=== PATIENT | female | born 1935 | race Caucasian/White ===

== ENCOUNTER → 2018-09-16 15:12 | Outpatient (CLI) | payer MEDICARE, SELFPAY ==
[2018-02-04 13:41] VITALS: BMI 34.7
--- NOTE | 2018-09-16 15:19 | RAD_ITS ---
STUDY: X-RAY CHEST REASON FOR EXAM: Female, 83 years old. Dyspnea, edema or COPD TECHNIQUE: PA and lateral views of the chest. COMPARISON: None. FINDINGS: There is a blunted appearance of the right costophrenic angle. Age-indeterminate eventration of the right hemidiaphragm. There is no demonstrated pleural abnormality. There is mild cardiac enlargement. Normal mediastinum and aaron. Normal visualized pulmonary arteries. There is atherosclerotic tortuosity of the aortic arch and descending thoracic aorta. There are diffuse degenerative changes of the visualized thoracic spine. There is a old fracture right rib 6. There is no demonstrated abnormality of the visualized soft tissue structures of the upper abdomen. RAD/Chest PA and Lateral IMPRESSION: Age-indeterminate blunted appearance of the right costophrenic angle may represent scarring atelectasis and/or small effusion. Otherwise no evidence of acute focal infiltrate. Old right-sided rib fracture. Borderline cardiomegaly. Electronically Signed: Elisha Soriano MD at 15:32 EDT Tel , Service support ,
[2018-09-16 18:08] LABS: BNP,B-Type NATRIURETIC PEPTIDE 205.2 pg/mL (0-100)
== END ==
PROVIDERS: Family Provider Internal Medicine; PCP Internal Medicine; Referring Provider Internal Medicine Pulmonary Disease; Visit Provider Internal Medicine Pulmonary Disease
DX: J44.9 Chronic obstructive pulmonary disease, unspecified (principal); R06.00 Dyspnea, unspecified; R60.9 Edema, unspecified
CPT/HCPCS: 36415; 71046; 83880

== ENCOUNTER 2019-02-22 07:28 | Day surgery (SDC) | payer MEDICARE, SELFPAY ==
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
[2019-02-21 10:33] VITALS: BMI 36.9
[2019-02-22 13:41] LABS: Blood Gas Specimen Type VEN; VBG BASE EXCESS 8 mmol/L (-1.0-3.5); VBG Bicarbonate 32 mmol/L (22-26); VBG Oxygen Content 34 mmol/L (23-33); VBG PO2 37 mmHg (25-40); VBG SO2 72 % (50-70); VBG pH 7.43 (7.32-7.42)
[2019-02-22 13:41] LABS: Blood Gas Specimen Type VEN; VBG BASE EXCESS 7 mmol/L (-1.0-3.5); VBG Bicarbonate 31 mmol/L (22-26); VBG Oxygen Content 33 mmol/L (23-33); VBG PO2 38 mmHg (25-40); VBG SO2 72 % (50-70); VBG pCO2 48.1 mmHg (41-51); VBG pH 7.42 (7.32-7.42)
[2019-02-22 13:41] LABS: Blood Gas Specimen Type VEN; VBG BASE EXCESS 8 mmol/L (-1.0-3.5); VBG Bicarbonate 33 mmol/L (22-26); VBG Oxygen Content 34 mmol/L (23-33); VBG PO2 29 mmHg (25-40); VBG SO2 54 % (50-70); VBG pCO2 51.7 mmHg (41-51); VBG pH 7.41 (7.32-7.42)
[2019-02-22 13:41] LABS: Blood Gas Specimen Type VEN; VBG BASE EXCESS 7 mmol/L (-1.0-3.5); VBG Bicarbonate 32 mmol/L (22-26); VBG Oxygen Content 33 mmol/L (23-33); VBG PO2 31 mmHg (25-40); VBG SO2 59 % (50-70); VBG pCO2 51.1 mmHg (41-51)
[2019-02-22 13:41] LABS: Base Excess 5 mmol/L (-2 to +2); Bicarbonate 28.8 mmol/L (22-26); Blood Gas Specimen Type ART; PO2 75 mmHG (75-100); SO2 96 % (95-99); Total Carbon Dioxide 30 mmol/L; pH 7.46 (7.35-7.45)
[2019-02-22 13:41] LABS: Blood Gas Specimen Type VEN; VBG BASE EXCESS 7 mmol/L (-1.0-3.5); VBG Bicarbonate 31 mmol/L (22-26); VBG Oxygen Content 32 mmol/L (23-33); VBG PO2 36 mmHg (25-40); VBG SO2 70 % (50-70); VBG pCO2 47.6 mmHg (41-51); VBG pH 7.42 (7.32-7.42)
--- NOTE | 2019-03-03 09:58 | CL.D_ITS ---
Patient Name: DARIUS GUERRERO Study Date: 02/22/2019 Performing: Masoud Johnson MD Ht: 60 inches 152 cm : 1935 Wt: 189.8 lbs 86 kg Age: 83 Gender: female BSA: 1.82 PROCEDURE(S) PERFORMED [id number]/LHC/COR/LV CLINICAL PROFILE AND INDICATIONS Indications: Suspected CAD, Valvular Disease Heart Failure: None Stress/Imaging Stress/Image Study Performed: No Angina Classification Anginal Classification w/in 2 Weeks: CCS III CAD Presentations: Other: Chest pain; shortness of breath CONCLUSIONS Right heart pressures - mildly elevated The patient has pulmonary hypertension which is mild. Intracardiac shunting: Left to Right (calculated Qp/Qs of 1.4) Elevated Left Ventricular End Diastolic Pressure Normal LV size, wall motion,and systolic function LVEF: by LV gram 55 % [place] Multivessel CAD Severe calcification of the LAD and RCA Aortic Valve Stenosis- Mild RECOMMENDATIONS Risk factor modification Medical therapy DESCRIPTION OF PROCEDURE The patient arrived to the procedure lab. The risks and benefits of the procedure as well as a full d escription of our services here and current unavailability of surgical backup were fully explained to the patient and/or their significant other prior to the catheterization. The Timeout was completed, verifying the correct patient and procedure. The patient's procedural site was prepped and draped in the usual fashion. Local anesthetic was given subcutaneously to right groin region with Lidocaine 2%. Local anesthetic was given subcutaneously to right brachial region with Lidocaine 2%. Using a modifi ed Seldinger technique, arterial access was obtained via the right brachial artery, a 6Fr sheath was inserted. Venous access was obtained via the right femoral vein, a 7Fr sheath was inserted. A 7Fr the rmal dilution catheter was inserted and right heart pressures were recorded, it was then advanced to PA position for cardiac outputs. Thermal dilution cardiac outputs were then recorded. O2 saturations were then obtained. Left Ventriculography was performed in [place] projection using a 5 Fr. P igtail catheter. LV to AO pullback pressures were then recorded. Simultaneous pressures were then rec orded. The Thermal dilution catheter was then removed. Left Coronary Artery selective angiography was performed in multiple views using a 5 Fr. 4.0 [place] catheter. Right Coronary Artery selective angiog jak was then performed in multiple views using a 5 Fr. 4.0 [place] catheter. Left Coronary Artery ajay ective angiography was performed in multiple views using a 5 Fr. 4.0 [place] catheter. A 7Fr thermal di lution catheter was inserted and right heart pressures were recorded, it was then advanced to PA posi tion for cardiac outputs. O2 saturations were then obtained. The Thermal dilution catheter was then r emoved.The arterial sheath was pulled and manual compression applied until hemostasis is achieved.. T he venous sheath was then pulled and manual compression applied until hemostasis achieved CORONARY ANGIOGRAPHY DOMINANCE: Right Dominant LEFT HEART ASSESSMENT Left Ventricular Ejection Fraction: by LV Gram 55 % Normal LV wall motion Elevated Left Ventricular End Diastolic Pressure LVEDP: 18 mmHg RIGHT HEART ASSESSMENT Thermal CO: 5.2 Thermal CI: 2.86 Thor CO: 6.29 Thor CI: 3.46 PW: 18/16 14 PA: 31/16 21 RV: 34/6 11 RA: 8/5 2 PVR: 108 SVR: 2014 Aortic Valve Area: 2.07 Aortic Valve Index: 1.14 Aortic Valve Mean Gradient: 16.8 Mitral Valve Area: >3.50 Mitral Valve index: 1.92 Mitral Valve Mean Gradient: 5.4 Right Heart pressures - elevated Pulmonary Hypertension Mild Intracardiac shunting: Left to Right (calculated Qp/Qs of 1.4) LEFT MAIN: Angiographically normal LEFT ANTERIOR DESCENDING ARTERY: Severe calcification PROX LAD: eccentric; hazy 50 % Stenosis MID LAD: eccentric; hazy 50 - 75 % Stenosis CIRCUMFLEX ARTERY: PROX CIRC: 25 % Stenosis RAMUS: Mild luminal irregularities RIGHT CORONARY ARTERY: Severe calcification diffuse; eccentric 25 % Stenosis DISTAL RCA: 50 % Stenosis VALVE FINDINGS: Aortic Valve Stenosis - mild AORTIC ROOT: Angiographically normal COMPLICATIONS No Complications PROCEDURE MEDICATIONS Versed 1 mg IV Oxygen: 0 L/min via nasal cannula Heparin diluted in 23cc Heparinized saline. Patient given 10cc IA of this solution. 02/22/2019 10:42: 36 Nitro glycerin 25mg / 250ml D5W @ 5 mcg/min IV started 02/22/2019 11:37:14 Nitro glycerin 25mg / 250ml D5W @ 10 mcg/min (increased rate) 02/22/2019 11:42:26 Nitro drip titrated down to 5 mcg/min ^FreeText^ 02/22/2019 13:22:23 Nitro gtt discontinued ^FreeText^ 02/22/2019 15:56:10 IV Fluids: .9 NaCl IV started @ 150 ml/hr 02/22/2019 08:09:49 SUMMARY OF HEMODYNAMIC DATA Time AIR REST ECG 07:59:42 RA 8/5 (2) SV 10:46:09 RV 34/6, 11 10:46:28 PA 31/16 (21) PA 10:47:22 PW 18/16 (14) PV 10:47:37 LV 204/12, 21 10:55:44 PW 17/16 (14) 10:55:44 LV 199/9, 18 10:55:50 PW 15/13 (10) 10:55:50 LV 221/9, 26 10:57:19 PW 21/20 (16) 10:57:19 LVp 217/31, 74 10:57:39 PW 38/30 (24) 10:57:39 AOp 216/70 (122) 10:57:44 PW 34/27 (27) 10:57:44 LVp 216/35, 71 10:58:20 AOp 220/79 (132) 10:58:25 PA 40/19 (27) 10:59:12 RV 44/6, 13 10:59:24 RA 13/11 (10) 10:59:35 AO 214/81 (133) SA 10:59:53 AO 169/68 (110) 11:19:50 PA 43/21 (29) 11:23:38 Valve Area (c P-P/ms Time AIR REST Mitral 3.50 1.5 mn/288 ms 10:55:50 Mitral 3.50 5.4 mn/282 ms 10:57:39 Aortic 2.07 16.8 mn/322 ms 10:58:20 Type SV CO (l/m) CI (l/m/ HR Time AIR REST Thermal 113.00 5.20 2.86 46 07:59:42 Thor 136.70 6.29 3.46 46 07:59:42 Label % O2 Pres/Loc Time AIR REST IVC 72 SV 10:53:17 SVC 59 10:53:20 AO 96 PV 11:04:31 PA 70 PA 11:29:57 Signed By Masoud Johnson MD On 02/22/2019 7:02:44 PM Masoud Johnson MD
== END 2019-02-22 15:56 | disposition home or self-care (01) ==
LOC: CLSP 07:30
PROVIDERS: Family Provider Internal Medicine; PCP Internal Medicine; Referring Provider Internal Medicine Cardiovascular Disease; Visit Provider Internal Medicine Cardiovascular Disease
DX: I25.10 Atherosclerotic heart disease of native coronary artery without angina pectoris (principal); I13.0 Hypertensive heart and chronic kidney disease with heart failure and stage 1 through stage 4 chronic kidney disease, or unspecified chronic kidney disease; I50.22 Chronic systolic (congestive) heart failure; N18.9 Chronic kidney disease, unspecified; I27.20 Pulmonary hypertension, unspecified; J44.9 Chronic obstructive pulmonary disease, unspecified; I35.2 Nonrheumatic aortic (valve) stenosis with insufficiency; E78.5 Hyperlipidemia, unspecified; R00.1 Bradycardia, unspecified; Z79.82 Long term (current) use of aspirin; Z79.899 Other long term (current) drug therapy; Z88.0 Allergy status to penicillin; Z88.5 Allergy status to narcotic agent; Z85.118 Personal history of other malignant neoplasm of bronchus and lung; Z87.891 Personal history of nicotine dependence; Z90.2 Acquired absence of lung [part of]
CPT/HCPCS: 82803; 93460; 99152; 99153; J7040; Q9967; C1751; C1769; C1894

== ENCOUNTER → 2020-01-16 10:45 | Outpatient (CLI) | payer MEDICARE, SELFPAY ==
[2019-03-22 13:08] VITALS: BMI 35.9
--- NOTE | 2020-01-16 11:05 | RAD_ITS ---
STUDY: X-RAY - LEFT KNEE REASON FOR EXAM: Female, 84 years old. PAIN S/P FALL IN JULY TECHNIQUE: AP and lateral view(s) of the knee. COMPARISON: None. FINDINGS: Normal visualized distal femur. Normal visualized proximal tibia and fibula. Normal proximal tibiofibular articulation. Normal medial femorotibial compartment. Normal lateral femorotibial compartment. There is mild degenerative arthrosis of the patellofemoral articulation. There are atherosclerotic calcifications. RAD/Knee 1 or 2 Views IMPRESSION: Degenerative arthrosis. Electronically Signed: Renzo Lofton, at 12:19 EDT , Service support ,
== END ==
PROVIDERS: PCP Internal Medicine; Referring Provider Anesthesiology Pain Medicine; Visit Provider Anesthesiology Pain Medicine
DX: M25.562 Pain in left knee (principal); W19.XXXA Unspecified fall, initial encounter
CPT/HCPCS: 73560

== ENCOUNTER → 2020-02-07 14:01 | Outpatient (CLI) | payer MEDICARE, SELFPAY ==
[2019-03-22 13:08] VITALS: BMI 35.9
--- NOTE | 2020-02-07 14:04 | RAD_ITS ---
STUDY: X-RAY - PELVIS AND LEFT HIP REASON FOR EXAM: Female, 84 years old. Fall x 6 months ago TECHNIQUE: 3 views of the pelvis and hip. COMPARISON: None. FINDINGS: There is a non-specific bowel gas pattern. Normal visualized soft tissue structures. Vascular calcifications. Normal bilateral iliac wings, sacroiliac joints and visualized sacrum. Normal bilateral superior and inferior pubic rami. Normal pubic symphysis. Normal bilateral ischial tuberosities. Normal visualized femoral head. Normal acetabulum. Normal hip joint. RAD/Hip uni 4+ views with Pelvis IMPRESSION: No acute bony injury of the pelvis and hip. Electronically Signed: Nikolai Ye DO at 18:12 EDT Tel [phone], Service support ,
--- NOTE | 2020-02-07 14:15 | RAD_ITS ---
STUDY: X-RAY - LEFT KNEE REASON FOR EXAM: Female, 84 years old. Fall x 6 months ago, left knee pain TECHNIQUE: 4 view(s) of the knee. COMPARISON: None. FINDINGS: Normal visualized distal femur. Normal visualized proximal tibia and fibula. Normal proximal tibiofibular articulation. Normal medial femorotibial compartment. Normal lateral femorotibial compartment. Normal patellofemoral articulation. Patellar spurring at the superior edge. The soft tissue structures are unremarkable. Vascular calcifications. RAD/Knee 4 or More Views IMPRESSION: Mild degenerative changes of the knee. Electronically Signed: Nikolai Ye DO at 19:19 EDT Tel [phone], Service support ,
== END ==
PROVIDERS: PCP Internal Medicine; Referring Provider Anesthesiology Pain Medicine; Visit Provider Anesthesiology Pain Medicine
DX: M25.562 Pain in left knee (principal)
CPT/HCPCS: 73503; 73564

== ENCOUNTER → 2020-11-08 12:28 | Outpatient (CLI) | payer MEDICARE, SELFPAY ==
[2020-11-02 15:15] VITALS: BMI 31.4
== END ==
PROVIDERS: PCP Internal Medicine; Referring Provider Physician Assistant Medical; Visit Provider Physician Assistant Medical
DX: R00.1 Bradycardia, unspecified (principal); R06.00 Dyspnea, unspecified; R06.02 Shortness of breath
CPT/HCPCS: 93225; 93226

== ENCOUNTER → 2021-09-30 | Outpatient (CLI) | payer MEDICARE, SELFPAY ==
--- NOTE | 2021-09-30 12:48 | ECHOD_ITS ---
Reason For Study: DYSPNEA/SOB Procedure This was a 2D Doppler, Color Flow transthoracic echocardiogram. The study was technically difficult. Exam performed in department. Left Ventricle Normal LV size. Left ventricular systolic function is normal. The estimated ejection fraction is 60 %. No evidence for diastolic dysfunction. No regional wall motion abnormalities noted. Right Ventricle Normal RV size. Normal systolic function. Atria Normal left atrium. Normal right atrium. No doppler evidence for ASD. Mitral Valve There is moderate mitral annular calcification. Extension the mitral annular calcification on the base of the posterior mitral valve leaflet. Trivial mitral valve insufficiency. Tricuspid Valve Normal tricuspid valve. Trivial tricuspid valve insufficiency. Unable to estimate RV systolic pressure/pulmonary artery pressure due to technically difficult study. Aortic Valve The aortic valve is not well visualized, however, based upon the 2D echocardiographic images obtained there appears to be thickening, calcification, and partial restriction. Mild aortic stenosis. Mild (1+) aortic valve insufficiency. Pulmonic Valve The pulmonic valve is not well visualized. Great Vessels The aortic root is not well visualized. Pericardium/Pleural No pericardial effusion. MMode/2D Measurements & Calculations LVIDd: 2.6 cm IVSd: 1.2 cm LVOT diam: 1.8 cm LVIDs: 1.2 cm LVPWd: 0.96 cm LVOT area: 2.5 cm2 RVDd: 3.3 cm FS: 53.7 % LAV(MOD-bp): 49.6 ml LVAd ap4: 22.5 cm2 LVAd ap2: 27.6 cm2 LAV(MOD-bp) Indexed: 28.4 ml/m2 LVLd ap4: 8.2 cm LVLd ap2: 8.3 cm LAV(MOD-sp2): 62.1 ml EDV(MOD-sp4): 55.8 ml EDV(MOD-sp2): 78.5 ml LAV(MOD-sp4): 37.3 ml EDV(sp4-el): 52.1 ml EDV(sp2-el): 78.2 ml LVAs ap4: 13.3 cm2 LVAs ap2: 19.3 cm2 LVLs ap4: 6.7 cm LVLs ap2: 7.2 cm ESV(MOD-sp4): 23.6 ml ESV(MOD-sp2): 46.9 ml ESV(sp4-el): 22.4 ml ESV(sp2-el): 43.8 ml EF(MOD-sp4): 57.7 % EF(MOD-sp2): 40.3 % EF(sp4-el): 57.0 % SV(MOD-sp4): 32.2 ml SV(MOD-sp2): 31.6 ml SV(sp4-el): 29.7 ml LA A4 area: 16.3 cm2 RA A4 area: 14.1 cm2 Doppler Measurements & Calculations MV E max abigail: 60.5 cm/sec Ao V2 max: 190.1 cm/sec AI max abigail: 448.0 cm/sec MV A max abigail: 127.4 cm/sec Ao max P.5 mmHg AI max P.3 mmHg MV E/A: 0.47 Ao V2 mean: 124.4 cm/sec AI dec slope: 176.6 cm/sec2 Ao mean P.2 mmHg AI P1/2t: 743.3 msec Ao V2 VTI: 38.6 cm MAX(I,D): 1.3 cm2 MAX(V,D): 1.1 cm2 LV V1 max: 83.6 cm/sec SV(LVOT): 50.7 ml LV V1 max P.8 mmHg LV V1 mean P.3 mmHg LV V1 mean: 52.0 cm/sec LV V1 VTI: 20.4 cm ECHO/Echo Complete Interpretation Summary The study was technically difficult. Left ventricular systolic function is normal. The estimated ejection fraction is 60 %. There is moderate mitral annular calcification. Extension the mitral annular calcification on the base of the posterior mitral valve leaflet. Trivial mitral valve insufficiency. Trivial tricuspid valve insufficiency. The aortic valve is not well visualized, however, based upon the 2D echocardiog raphic images obtained there appears to be thickening, calcification, and partial restriction . Mild aortic stenosis. Mild (1+) aortic valve insufficiency. Unable to estimate RV systolic pressure/pulmonary artery pressure due to techni helio difficult study. No evidence for diastolic dysfunction. Ordering Physician: Masoud Johnson Referring Physician: Masoud Johnson Performed By: Aretha Palacio RCS
== END | disposition home or self-care (01) ==
LOC: CVS 12:46
PROVIDERS: PCP Internal Medicine; Referring Provider Internal Medicine Cardiovascular Disease; Visit Provider Internal Medicine Cardiovascular Disease
DX: I25.10 Atherosclerotic heart disease of native coronary artery without angina pectoris (principal)
CPT/HCPCS: 93306

== ENCOUNTER → 2021-11-13 | Outpatient (CLI) | payer MEDICARE, SELFPAY ==
--- NOTE | 2021-11-13 14:42 | PFTCOMP_ITS ---
COMPLETE PULMONARY FUNCTION TEST INTERPRETATION Brief HPI: Patient is an 86-year-old female, currently under the care of Dr. Joseph, who presents to [facility] for complete pulmonary function tests secondary to diagnosis of COPD. Respiratory therapist reports good effort and reproducible results. Interpretation: Forced expiration spirometry shows a mild large airways obstructive ventilatory defect with an FEV1 of 84% predicted. There is a significant bronchodilator response in FVC and FEV1 by strict ATS criteria. Spirograms are of good quality and plateau slowly, indicating slowly emptying areas of the lungs. The respiratory flow volume loop shows decreased expiratory flow rates at all lung volumes consistent with airway obstruction. Lung volumes by body plethysmography show a normal total lung capacity at 3.43 L, 89% predicted. All other lung volumes are within normal limits. Diffusion capacity by carbon monoxide is decreased at 31% predicted. The airway resistance is elevated. No previous pulmonary function tests were available for review. Impression: Partially reversible mild large airways obstructive ventilatory defect with a disproportionate reduction in diffusing capacity, in a pattern consistent with COPD/asthma overlap syndrome
== END | disposition home or self-care (01) ==
LOC: PSN 09:45
PROVIDERS: PCP Internal Medicine; Referring Provider Internal Medicine Critical Care Medicine; Visit Provider Internal Medicine Critical Care Medicine
DX: J44.9 Chronic obstructive pulmonary disease, unspecified (principal)
CPT/HCPCS: 94060; 94726; 94729

== ENCOUNTER → 2021-11-14 | Outpatient (CLI) | payer MEDICARE, SELFPAY ==
[2021-11-14 13:00] VITALS: PULSE 56; PULSE 67; PULSE 73; PULSE 76; PULSE 78; PULSE 80; PULSE 93; O2SAT 92; O2SAT 94; O2SAT 95; O2SAT 96
--- NOTE | 2021-11-14 15:29 | PCM.PSN.6M ---
PSN 6 Minute Walk Test 6 Minute Walk Test 6 Minute Walk Test: 6 Minute Walk Test PSN:6-Minute Walk Test Start: 11/14/21 13:43 Freq: Status: Active Protocol: [id number].[id number] Document 11/14/21 13:00 [facility] (Rec: 11/14/21 13:47 [facility] [id number]) 6 Minute Walk Test Date Performed 11/14/21 Time Performed 13:00 Height 5 ft Weight: 77.564 kg Weight in Pounds 171.[address]: Dr Joseph Assistive device used: Cane Pre-test Oxygen Delivery Method Room Air Pulse Ox (%) 96 Pulse Rate (60-100 beats/min) 56 L Dyspnea Kary Scale (0-10) 2 Exertion Kary Scale (6-20) 6 1st minute Oxygen Delivery Method Room Air Pulse Ox (%) 95 Pulse Rate (60-100 beats/min) 73 2nd minute Oxygen Delivery Method Room Air Pulse Ox (%) 94 Pulse Rate (60-100 beats/min) 80 3rd minute Oxygen Delivery Method Room Air Pulse Ox (%) 94 Pulse Rate (60-100 beats/min) 76 4th minute Oxygen Delivery Method Room Air Pulse Rate (60-100 beats/min) 93 Dyspnea Kary Scale (0-10) 76 5th minute Oxygen Delivery Method Room Air Pulse Ox (%) 92 Pulse Rate (60-100 beats/min) 78 6th minute Oxygen Delivery Method Nasal Cannula Pulse Ox (%) 95 Pulse Rate (60-100 beats/min) 78 Dyspnea Kary Scale (0-10) 2 Exertion Kary Scale (6-20) 12 Post-test Oxygen Delivery Method Room Air Pulse Ox (%) 96 Pulse Rate (60-100 beats/min) 67 Full Laps Walked 4 Partial Lap, Number of Tiles Walked 23 Total Distance Walked (ft) 259 Interpretation Interpretation: The patient was able to ambulate only 259 feet over the course of 6 minutes on room air with the assistance of a cane, but no breaks. The patient did experience significant desaturation from a baseline of 96% to as low as 92%. No tachycardia was noted during testing. These findings are consistent with a musculoskeletal limitation exercise tolerance. Recommendations Recommendations: No supplemental oxygen is indicated at this time.
== END | disposition home or self-care (01) ==
LOC: PSN 13:19
PROVIDERS: PCP Internal Medicine; Visit Provider Internal Medicine Critical Care Medicine
DX: J44.9 Chronic obstructive pulmonary disease, unspecified (principal)
CPT/HCPCS: 94618

== ENCOUNTER 2022-11-17 04:24 | Emergency (ER) | payer MEDICARE, SELFPAY ==
[2022-11-17 04:25] VITALS: BP 185/95; PULSE 65; RESP 16; TEMP 36.4; O2SAT 94; BMI 34.5
--- NOTE | 2022-11-17 04:56 | EKG12_ITS ---
Test Reason : FALL Blood Pressure : / mmHG Vent. Rate : 066 BPM Atrial Rate : 066 BPM P-R Int : 192 ms QRS Dur : 150 ms QT Int : 490 ms P-R-T Axes : 050 -75 065 degrees QTc Int : 513 ms Poor data quality, interpretation may be adversely affected Sinus rhythm with occasional Premature ventricular complexes Right bundle branch block Abnormal ECG Confirmed by JOHNNA ALLEN, SOBIA ([id number]), pictures editor RAIZA ANNE ([id number]) on 11/19/2022 11:35:59 AM Referred By: JUANY Confirmed By:SOBIA OROPEZA MD
--- NOTE | 2022-11-17 04:56 | RAD_ITS ---
EXAM: XR CHEST, 1 VIEW CLINICAL INDICATION: syncope TECHNIQUE: Frontal view of the chest. COMPARISON: September 16, 2018. FINDINGS: LUNGS AND PLEURAL SPACES: No convincing pulmonary contusion. Mild blunting of the right lateral costophrenic angle appears similar, suspected scarring. Surgical clips noted in the right infrahilar region as on prior exam. No pneumothorax. No effusion. HEART: Similar degree of the mild to moderate cardiomegaly. The patient is rotated to the right. Similar degree of tortuosity of the aorta and mild mediastinal fullness considering patient positioning. MEDIASTINUM: See above. BONES/JOINTS: No destructive rib fracture identified. Partially included shoulders are intact. SOFT TISSUES: Unremarkable. RAD/Chest 1 View (Portable) IMPRESSION: No acute intrathoracic abnormality considering limitations due to technical factors and significant patient rotation. Postoperative changes of the right infrahilar region and stable mild presumed scarring at the right lateral lung base. Electronically Signed: Marichuy Joiner MD at 6:11 EDT ,
--- NOTE | 2022-11-17 04:56 | CT_ITS ---
EXAM: CT CERVICAL SPINE WITHOUT INTRAVENOUS CONTRAST CLINICAL INDICATION: injury TECHNIQUE: Helically acquired images were obtained of the cervical spine without intravenous contrast. 2D reformatted images were reviewed. This CT exam was performed using one or more of the following dose reduction techniques: automated exposure control, adjustment of the mA and/or kV according to patient size, and/or use of iterative reconstruction technique. RADIATION DOSE: CTDIvol = 15.5 mGy, DLP = 532.34 mGy-cm COMPARISON: No relevant prior studies available. FINDINGS: VERTEBRAE: Demineralization of skeletal structures. Mild anterolisthesis of C3 with respect to C4 and this is slightly less extent at other levels. Most likely chronic, there are facet joint hypertrophic changes on the left at C3-4 and now facet joint widening. No fracture. No discrete lytic or blastic abnormality. Normal craniocervical junction and cervicothoracic junction. DISCS/SPINAL CANAL/NEURAL FORAMINA: Marked disc space narrowing at C4 through C7 and moderate narrowing at C3-4. No evidence of a high-grade cervical spine stenosis. Multilevel at least mild neural foraminal stenosis. SOFT TISSUES: Unremarkable. No prevertebral soft tissue swelling. LYMPH NODES: Unremarkable. No cervical adenopathy. LUNG APICES: Advanced chronic change in the lung apices, emphysematous changes and some increased interstitial markings. Is moderate right and mild left cervical carotid calcifications. CT/Spine Cervical without Contras IMPRESSION: 1. Advanced degenerative changes. No acute cervical spine abnormality. 2. Demineralization. Motion artifacts and mild decreased fine detail. 3. COPD. 4. Right greater than left cervical carotid calcifications. Electronically Signed: Marichuy Joiner MD at 6:07 EDT ,
--- NOTE | 2022-11-17 04:56 | RAD_ITS ---
EXAM: XR PELVIS, 1 OR 2 VIEWS CLINICAL INDICATION: pain TECHNIQUE: Frontal view of the pelvis. COMPARISON: No relevant prior studies available. FINDINGS: BONES/JOINTS: Lower sacrum-coccyx are not well seen due to demineralization. SI joints and superior sacrum appears grossly intact. No evidence of hip fracture. No destructive or sclerotic lesions. Note that overlapping bowel shadows may however obscure fine detail. No widening of the pubic symphysis. SOFT TISSUES: Unremarkable. No soft tissue swelling or gas. RAD/Pelvis 1 or 2 Views IMPRESSION: No acute findings in the pelvis. Electronically Signed: Marichuy Joiner MD at 6:08 EDT ,
--- NOTE | 2022-11-17 04:56 | CT_ITS ---
We are attempting to reach an attending provider to discuss findings. An addendum with communication details will be sent when the communication is complete. EXAM: CT HEAD WITHOUT INTRAVENOUS CONTRAST CLINICAL INDICATION: head injury TECHNIQUE: Multiple axial images were obtained of the head without intravenous contrast. This CT exam was performed using one or more of the following dose reduction techniques: automated exposure control, adjustment of the mA and/or kV according to patient size, and/or use of iterative reconstruction technique. RADIATION DOSE: CTDIvol = 44.99 mGy, DLP = 796.11 mGy-cm COMPARISON: No relevant prior studies available. FINDINGS: BRAIN AND EXTRA-AXIAL SPACES: There are multifocal and bilateral hemorrhages. Moderate cerebral volume loss. Mild hemorrhage in the sylvian fissures, subarachnoid, greater on the right. Small multifocal parenchymal hemorrhages, bilateral, including bilateral frontal lobes, the largest roughly 1.3 cm x 0.8 cm on the right. Mild hemorrhage along the deep margin of the falx adjacent to the corpus callosum slight subdural or subarachnoid hemorrhage. No midline shift. Moderate diffuse cerebral volume loss. Prominent extra-axial CSF spaces are chronic subdural hygromas. Superimposed small acute subdural hematoma on the left measuring roughly 7 mm craniocaudal and 6 mm thickness. Small presumed subdural on the right laterally measuring about 7 mm x 5 mm, this may be parenchymal but is suspected to be acute subdural hematoma. No evidence of acute infarct. There is preservation of the dent/white matter interface. Posterior fossa structures are unremarkable. Basal cisterns are patent. No intraventricular hemorrhage. BONES/JOINTS: Mild left periorbital laceration and contusion. No underlying orbit fracture or intraorbital air or fluid. No discrete lytic or blastic abnormalities. VASCULATURE: Marked intracranial carotid calcifications. SINUSES: Unremarkable as visualized. Clear. MASTOID AIR CELLS: Unremarkable. Clear. ORBITS: Visualized globes, extraocular muscles, optic nerves and retrobulbar fat appear unremarkable. CT/Brain/Head without Contrast IMPRESSION: Multiple scattered small acute intracranial hemorrhages including subarachnoid, parenchymal and subdural. No midline shift. Electronically Signed: Marichuy Joiner MD at 6:03 EDT ,
--- NOTE | 2022-11-17 04:56 | RAD_ITS ---
EXAM: XR RIGHT TIBIA AND FIBULA, 2 VIEWS CLINICAL INDICATION: pain TECHNIQUE: 3 views. COMPARISON: No relevant prior studies available. FINDINGS: BONES/JOINTS: There is calcification of the popliteal artery posterior to the knee on the lateral view. No significant suprapatellar joint effusion, it is not fully included. Intact proximal to mid tibia and fibula and chronic change with old healed fractures of the distal third of the tibia and fibula. Soft tissue swelling, especially laterally and ventrally. No sclerotic or destructive changes observed. SOFT TISSUES: See above. RAD/Tibia & Fibula 2 Views IMPRESSION: No acute fractures. Electronically Signed: Marichuy Joiner MD at 6:15 EDT ,
--- NOTE | 2022-11-17 04:56 | RAD_ITS ---
EXAM: XR RIGHT ANKLE COMPLETE, 3 OR MORE VIEWS CLINICAL INDICATION: pain TECHNIQUE: Frontal, lateral and oblique views of the right ankle. COMPARISON: No relevant prior studies available. FINDINGS: BONES/JOINTS: Proximal metatarsals appear intact. There are postoperative changes of the distal tibia. Wavy thick contour of old healed fractures of the distal tibia and fibula. Diffuse demineralization. No evidence of ankle joint effusion. Ventral calf and ankle superficial soft tissue swelling. No sclerotic or destructive changes observed. SOFT TISSUES: See above. RAD/Ankle min 3 Views IMPRESSION: Old healed fractures of the distal tibia and fibula. Ankle joint is fairly well-maintained without acute ankle fracture or joint effusion. Demineralization. Electronically Signed: Marichuy Joiner MD at 6:13 EDT ,
[2022-11-17] MEDS: Ondansetron 4 MG/2 ML Vial IV (05:07)
[2022-11-17] MEDS: Morphine 2 MG/ML Syringe IV (05:08)
[2022-11-17 05:11] LABS: Absolute Lymphocyte Count 1.23 X10^3/uL (0.83-4.51); Absolute Neutrophil Count 2.1 X10^3/uL (2.0-7.7); Basophil# 0.02 X10^3/uL; Basophil% 0.5 % (0-1); Eosinophil# 0.15 X10^3/uL; Eosinophils% 3.8 % (0-5); Hematocrit 32.4 % (37-47); Hemoglobin 10.3 g/dL (12.0-15.0); Lymphocyte # 1.23 X10^3/ul (0.83-4.51); Lymphocyte % 31.5 % (19-41); Mean Corp Hgb Conc 31.8 g/dL (32-36); Mean Corpuscular Hgb 31.9 pg (27.0-32.0); Mean Corpuscular Volume 100.3 fL (81-99); Mean Platelet Vol. 10.4 fl (6.2-12.0); Monocyte# 0.38 X10^3/uL; Monocyte% 9.7 % (0-10); NRBC Flagged by Analyzer 0 % (0-5); Neutrophil # 2.13 X10^3/uL (2.7-7.7); Neutrophil % 54.5 % (47-70); Platelet Count 161 K/mm3 (150-450); RBC Distribution Width CV 11.9 % (11.6-14.6); RBC Distribution Width SD 43.9 fl (35.1-43.9); Red Blood Count 3.23 M/mm3 (4.2-5.4); White Blood Count 3.9 K/mm3 (4.4-11.0)
[2022-11-17 05:23] LABS: International Normalized Ratio 1.1
[2022-11-17 05:24] LABS: Partial Thromboplast Time 28.6 Seconds (24.1-36.2)
[2022-11-17 05:29] LABS: Anion Gap 5 (5-15); BUN 23 mg/dL (7-18); BUN/Creat Ratio 14.2 RATIO (10-20); Calcium,Total 9.1 mg/dL (8.5-10.1); Chloride 103 mmol/L (98-107); Creatinine, Serum 1.62 mg/dL (0.55-1.02); EST Glomerular Filtration Rate 32 mL/min (>60); Est Glom Filt Rate - Afr Amer 39 mL/min (>60); Estimated Creatinine Clearance 17.24 ml/min; Glucose 118 mg/dL (74-106); Magnesium 2.1 mg/dL (1.6-2.6); Potassium 3.6 mmol/L (3.5-5.1); Sodium Level 141 mmol/L (136-145); Troponin-I HS 57 pg/mL (3.0-54.0)
[2022-11-17 06:48] VITALS: BP 161/85; PULSE 77; RESP 16; O2SAT 96
--- NOTE | 2022-11-17 06:48 | EDS_ITS ---
HPI History of Present Illness Chief Complaint: Fall Informant: patient, family and EMS Narrative Narrative: Patient is a 87-year-old female who lives at home with her daughter. She has a past medical history of hypertension hyperlipidemia coronary artery disease and is on Plavix secondary to this. Daughter states that she awoke to a thud. And states she found the patient at the bottom of 6 there is dazed but awake. She noticed trauma to her right leg and bleeding from her head and with the concern for underlying fracture or brain bleed EMS was called. EMS confirms when they arrived the patient is awake and alert and was protecting her airway but secondary to the trauma was brought in for evaluation. [facility] Medical History Asthma Atherosclerotic heart disease of [place] coronary artery without angina pectoris Bradycardia Chronic systolic (congestive) heart failure CKD (chronic kidney disease) COPD (chronic obstructive pulmonary disease) Essential hypertension Hiatal hernia History of left heart catheterization (LHC) (~02/22/19) Hyperlipidemia Lung cancer Nonrheumatic aortic (valve) stenosis with insufficiency Osteoarthritis Osteoarthritis Presence of coronary angioplasty implant and graft (~07/23/20) Primary cancer of right lower lobe of lung Right renal mass Spinal stenosis Home Medications acetaminophen 500 mg tablet 500 mg PO Q6H PRN PRN Pain 09/01/16 [History Last Taken Unknown] albuterol sulfate 90 mcg/actuation aerosol inhaler 2 puff inhalation Q4H PRN PRN Pain 09/01/16 [History Last Taken Unknown] aspirin 81 mg chewable tablet 81 mg PO DAILY@0800 09/01/16 [History Last Taken 02/22/19] magnesium oxide 400 mg PO BID 01/20/17 [History Last Taken Unknown] terazosin 5 mg capsule 5 mg PO DAILY 02/04/18 [History Last Taken Unknown] dextromethorphan-guaifenesin 10 mg-100 mg/5 mL oral syrup 5 ml PO UD PRN Cough 03/09/19 [History Last Taken Unknown] clopidogrel 75 mg tablet 75 mg PO DAILY 10/04/20 [History Last Taken Unknown] ropinirole 1 mg tablet 1 mg PO QHS 11/02/20 [History Last Taken Unknown] bumetanide 2 mg tablet 2 mg PO DAILY 09/12/21 [History Last Taken Unknown] famotidine 20 mg tablet 20 mg PO BID 09/12/21 [History Last Taken Unknown] potassium chloride 20 mEq tablet,extended release 20 meq PO DAILY 09/12/21 [History Last Taken Unknown] rosuvastatin 40 mg tablet 40 mg PO QHS 09/12/21 [History Last Taken Unknown] albuterol sulfate 2.5 mg/3 mL (0.083 %) solution for nebulization 2.5 mg (3 mL) inhalation Q4H PRN Sob &/Or Wheezing #180 mL 11/21/21 [Rx Last Taken Unknown] budesonide-formoterol HFA 160 mcg-4.5 mcg/actuation aerosol inhaler (Symbicort) 2 puff inhalation BID #10.2 grams 03/13/22 [Rx Last Taken Unknown] ergocalciferol (vitamin D2) 1,250 mcg (50,000 unit) capsule 50,000 unit PO Q2W 03/26/22 [History Last Taken Unknown] isosorbide mononitrate 60 mg tablet,extended release 24 hr 60 mg PO DAILY 03/26/22 [History Last Taken Unknown] bumetanide 2 mg tablet mg 11/17/22 [History Last Taken Unknown] losartan 50 mg tablet (Cozaar) 50 mg PO DAILY 11/17/22 [History Last Taken Unknown] ranolazine 500 mg tablet,extended release,12 hr (Ranexa) 500 mg PO BID 11/17/22 [History Last Taken Unknown] Allergy/AdvReac Type Severity Reaction Status Date / Time Penicillins Allergy Severe Unknown Verified 11/17/22 04:29 aspirin Allergy Intermediate Other Verified 11/17/22 04:29 grass pollen Allergy sneezing, Verified 11/17/22 04:29 coughing, rash codeine AdvReac Severe Unknown Verified 11/17/22 04:29 adhesive tape AdvReac Intermediate Rash Verified 11/17/22 04:29 milk AdvReac Mild Other Verified 11/17/22 04:29 house dust AdvReac sneezing, Verified 11/17/22 04:29 coughing tree and shrub pollen AdvReac sneezing, Verified 11/17/22 04:29 coughing clonidine hcl Allergy Other Uncoded 11/17/22 04:29 Family History Mother Tuberculosis Father Prostate cancer Hypertension Surgical History Basal cell carcinoma History of back surgery History of bilateral cataract extraction History of bunionectomy History of section History of cholecystectomy History of hernia repair History of hysterectomy History of lobectomy of lung (~2012) History of lumbar laminectomy for spinal cord decompression History of tonsillectomy Presence of stent in coronary artery (~07/23/20) Social History Smoking Status: Former smoker alcohol intake: current details: occasional substance use type: does not use caffeine: Yes Type: coffee Number of servings: 1 ROS ROS ED Constitutional Constitutional ED: Denies chills or fever(s) Eyes Eyes: Denies blurry vision or change in vision ENT ENT ED: Denies sore throat Cardiovascular Cardiovascular: Denies chest pain, palpitations or racing heartbeat Respiratory/Chest Respiratory/Chest: Denies cough or dyspnea Gastrointestinal Gastrointestinal: Denies abdominal pain, diarrhea, nausea or vomiting Genitourinary Genitourinary ED: Denies dysuria Musculoskeletal Musculoskeletal: Reports other Details: Positive right leg pain ; Denies back pain or neck pain Integumentary Reports other Details: Positive swelling and bruising right leg Neurologic Neurologic: Reports headache(s); Denies paresthesias or weakness Hematologic/Lymphatic Hematologic/Lymphatic: Reports easy bleeding and easy bruising EXAM Physical Exam Const Vital Signs: 11/17/22 04:25 11/17/22 06:48 11/17/22 07:07 Temperature 97.6 F L Temperature Source Temporal Pulse Rate 65 77 84 Respiratory Rate 16 16 16 Blood Pressure 185/95 H 161/85 H 155/85 H Blood Pressure Mean 125 110 108 Pulse Ox 94 96 94 Oxygen Delivery Method Room Air Positive well nourished and well developed General Appearance ED: well developed HEENT Reports TM's clear HEENT Narrative: Patient has a 1.5 cm linear subcutaneous layer deep laceration above the left eyebrow with minimal ooze of blood. Otherwise there are no signs of depressed or basilar skull fracture. Tympanic Membrane ED: Yes TM's clear Eyes PERRL and EOMs intact bilaterally Eyes Narrative: Subconjunctival hemorrhage noted along the right eye no hyphema noted bilaterally Neck supple Neck Narrative: No bony deformity or step-off of the cervical spine no midline pain with palpation Chest Wall palpation of chest normal Chest Narrative: No bony deformity or crepitance noted Resp normal respiratory effort and clear to auscultation bilaterally Cardio regular rate and regular rhythm Rate: other Other Details: Radial pulses are plus 2 out of 4 bilaterally are equal and symmetric GI normal to inspection, nondistended, normoactive bowel sounds, non-tender, non- distended and no masses GI Narrative: No voluntary guarding or rigidity. No abrasions or ecchymosis noted. No pulsatile mass Auscultation: normoactive bowel sounds Palpation: soft Back/Spine Back/Spine Narrative: No bony deformity or step-off of the thoracic or lumbar spine no midline pain on palpation Extremity Extremity Narrative: Patient has a large amount of soft tissue swelling and ecchymosis to the anterior aspect of her right lower leg beginning just below the knee and stopping just above the ankle. Otherwise the pelvis is stable there is no shortening or external rotation of either lower extremity. Patient can lift both arms without difficulty she can move the left leg without difficulty and range of motion of the right leg is decreased secondary to pain. Neuro oriented x3, CN's II-XII intact bilaterally and no sensory deficits noted Sensorium / Orientation: alert Psych mental status grossly normal Skin Skin Narrative: Laceration to the head/scalp as well as the soft tissue swelling with ecchymosis to the right lower leg as documented above. MDM MDM MDM Narrative Medical decision making narrative: Patient presented to the ER hypertensive but otherwise with stable vitals and she is awake and alert with no focal neurologic deficit. With the traumatic injury there is concern for underlying skull fracture versus subdural epidural hematoma. There is also concern for cervical spine injury as well as fracture of the right lower. There is also concern for potential syncope as a cause of her fall where she could just have posttraumatic amnesia. Therefore multiple imaging studies were obtained. Plain film x-rays revealed no acute traumatic findings but CT of the head revealed multiple traumatic brain bleed. Secondary to this being a trauma and patient having brain bleed and has not been a trauma center or having neurosurgery the patient requests [facility]. Therefore they were contacted and they do agree to accept the patient. The case was initially discussed with the ER physician and then consulted where neurosurgery and trauma. They recommend trying to maintain a blood pressure under 140 and providing DDAVP secondary to her Plavix use. Secondary to this DDAVP was given at a total of 25 mcg based on 0.3 mcg/kg. She was given 20 mg of hydralazine secondary to the hypertension and her near bradycardic heart rate. He was also given morphine and fentanyl secondary to the right leg trauma. At this time the patient is awake and alert and protecting her airway therefore there is no need for intubation and she will be sent to their facility for further care. History & Record Review Discussion w/independent historian: EMS personnel, Patient and Family Lab Data Attestation: I reviewed the patient's lab results. Labs: Laboratory Results - last 24 hr 11/17/22 11/17/22 11/17/22 04:35 04:35 04:35 WBC 3.9 L RBC 3.23 L Hgb 10.3 L Hct 32.4 L MCV 100.3 H MCH 31.9 MCHC 31.8 L RDW Std Deviation 43.9 RDW Coeff of Cha 11.9 Plt Count 161 MPV 10.4 Immature Gran % (Auto) 0.000 Neut % (Auto) 54.5 Lymph % (Auto) 31.5 Bucks % (Auto) 9.7 Eos % (Auto) 3.8 Baso % (Auto) 0.5 Absolute Neuts (auto) 2.1 Absolute Lymphs (auto) 1.23 Nucleated RBC % 0 PT 14.0 INR 1.1 APTT 28.6 Sodium 141 Potassium 3.6 Chloride 103 Carbon Dioxide 33.0 H Anion Gap 5 BUN 23 H Creatinine 1.62 H Estim Creat Clear Calc 17.24 Est GFR (MDRD) Af Amer 39 L Est GFR (MDRD) Non-Af 32 L BUN/Creatinine Ratio 14.2 Glucose 118 H Calcium 9.1 Magnesium 2.1 Troponin I High Sens 57 H Radiography Diagnostic Testing: Clinical Impression(s) from Imaging Studies Ankle X-Ray 11/17/22 04:56 IMPRESSION: Old healed fractures of the distal tibia and fibula. Ankle joint is fairly well-maintained without acute ankle fracture or joint effusion. Demineralization. Electronically Signed: Marichuy Joiner MD at 6:13 EDT , Brain CT 11/17/22 04:56 IMPRESSION: Multiple scattered small acute intracranial hemorrhages including subarachnoid, parenchymal and subdural. No midline shift. Electronically Signed: Marichuy Joiner MD at 6:03 EDT Reading Location ID and State: [facility] / [place] Tel , Service support , ADDENDUM: 11/17/22 0628 IMPRESSION: Multiple scattered small acute intracranial hemorrhages including subarachnoid, parenchymal and subdural. No midline shift. N.B. : The above Results were Read Back by Marichuy Joiner MD to Maxwell Wu DO, and understanding confirmed on 11/17/2022 06:21:29 (ET). Electronically Signed: Marichuy Joiner MD at 6:03 EDT Reading Location ID and State: [facility] / [place] Tel , Service support , Cervical Spine CT 11/17/22 04:56 IMPRESSION: 1. Advanced degenerative changes. No acute cervical spine abnormality. 2. Demineralization. Motion artifacts and mild decreased fine detail. 3. COPD. 4. Right greater than left cervical carotid calcifications. Electronically Signed: Marichuy Joiner MD at 6:07 EDT Reading Location ID and State: [facility] / [place] Tel , Service support , Chest X-Ray 11/17/22 04:56 IMPRESSION: No acute intrathoracic abnormality considering limitations due to technical factors and significant patient rotation. Postoperative changes of the right infrahilar region and stable mild presumed scarring at the right lateral lung base. Electronically Signed: Marichuy Joiner MD at 6:11 EDT Reading Location ID and State: [facility] / [place] Tel , Service support , Pelvis X-Ray 11/17/22 04:56 IMPRESSION: No acute findings in the pelvis. Electronically Signed: Marichuy Joiner MD at 6:08 EDT Reading Location ID and State: [facility] / [place] Tel , Service support , Tibia/Fibula X-Ray 11/17/22 04:56 IMPRESSION: No acute fractures. Electronically Signed: Marichuy Joiner MD at 6:15 EDT , Chest x-ray as interpreted by the emergency medicine physician reveals no acute infiltrate pneumothorax or pleural effusion Pelvis x-ray as interpreted by the emergency medicine physician reveals no acute fracture or dislocation Tib-fib x-ray as interpreted by the emergency medicine physician reveals no acute fracture or dislocation or foreign body. Critical Care Time Critical Care Time: Yes Critical care time (excluding procedures): Discussing w/Patient &/or Family/Oceanographic Meteorologist, Discussing w/Consultants, Arranging Admission or Transfer and - (Please note critical care time of 33 minutes) Discharge Plan Triage Chief Complaint: Fall ED Provider: Maxwell Wu Dx/Rx/DC Orders Clinical Impression: Multiple hemorrhages of brain due to trauma, Hyperlipidemia, Essential hypertension, CKD (chronic kidney disease), Contusion of leg, right, Laceration of scalp Prescriptions: No Action bumetanide 2 mg tablet 2 mg PO DAILY rosuvastatin 40 mg tablet 40 mg PO QHS famotidine 20 mg tablet 20 mg PO BID clopidogrel 75 mg tablet 75 mg PO DAILY Label Comments: TAKE 1 TABLET BY MOUTH EVERY DAY ropinirole 1 mg tablet 1 mg PO QHS potassium chloride 20 mEq tablet extended release 20 meq PO DAILY isosorbide mononitrate 60 mg tablet extended release 24 hr 60 mg PO DAILY albuterol sulfate 2.5 mg /3 mL (0.083 %) solution for nebulization 2.5 mg inhalation Q4H PRN (Reason: Sob &/Or Wheezing) Qty: 180 3RF budesonide-formoterol [Symbicort] 160-4.5 mcg/actuation HFA aerosol inhaler 2 puff inhalation BID Qty: 10.2 6RF acetaminophen 500 MG tablet 500 mg PO Q6H PRN PRN (Reason: Pain) aspirin 81 MG tablet,chewable 81 mg PO DAILY@0800 albuterol sulfate 1 PUFF inhaler 2 puff inhalation Q4H PRN PRN (Reason: Pain) magnesium oxide 400 MG tablet 400 mg PO BID terazosin 5 MG capsule 5 mg PO DAILY dextromethorphan-guaifenesin 118 ML syrup 5 ml PO UD PRN (Reason: Cough) ergocalciferol (vitamin D2) 1,250 mcg (50,000 unit) capsule 50,000 unit PO Q2W losartan [Cozaar] 50 mg tablet 50 mg PO DAILY bumetanide 2 mg tablet ranolazine [Ranexa] 500 mg Tablet Extended Release 12 Hr 500 mg PO BID Primary Care Provider: Brigido Santana Referrals: Brigido Santana MD [Primary Care Provider] - Disposition Disposition: Acute Care Hospital Discharge Location: [facility]
[2022-11-17] MEDS: Desmopressin Acetate 40 MCG/10 ML Vial 25 MCG IV (06:56)
[2022-11-17] MEDS: fentaNYL 100 MCG/2 ML Ampul 50 MCG IV (07:04)
[2022-11-17 07:07] VITALS: BP 155/85; PULSE 84; RESP 16; O2SAT 94
[2022-11-17] MEDS: Orphenadrine 60 MG/2 ML Ampul IV (07:08)
[2022-11-17] MEDS: hydrALAZINE 20 MG/ML Vial IV (07:09)
== END 2022-11-17 07:34 | disposition short-term general hospital (02) ==
PROVIDERS: Emergency Provider Emergency Medicine; PCP Internal Medicine; Visit Provider Emergency Medicine
DX: S06.6X0A Traumatic subarachnoid hemorrhage without loss of consciousness, initial encounter (principal); J44.9 Chronic obstructive pulmonary disease, unspecified; I13.0 Hypertensive heart and chronic kidney disease with heart failure and stage 1 through stage 4 chronic kidney disease, or unspecified chronic kidney disease; I50.22 Chronic systolic (congestive) heart failure; S06.5X0A Traumatic subdural hemorrhage without loss of consciousness, initial encounter; S01.01XA Laceration without foreign body of scalp, initial encounter; S80.11XA Contusion of right lower leg, initial encounter; H11.31 Conjunctival hemorrhage, right eye; W19.XXXA Unspecified fall, initial encounter; Y92.009 Unspecified place in unspecified non-institutional (private) residence as the place of occurrence of the external cause; N18.9 Chronic kidney disease, unspecified; I25.10 Atherosclerotic heart disease of native coronary artery without angina pectoris; E78.5 Hyperlipidemia, unspecified; Z79.82 Long term (current) use of aspirin; Z79.02 Long term (current) use of antithrombotics/antiplatelets; Z79.899 Other long term (current) drug therapy; Z87.891 Personal history of nicotine dependence; Z95.2 Presence of prosthetic heart valve
CPT/HCPCS: 70450; 71045; 72125; 72170; 73590; 73610; 80048; 83735; 84484; 85025; 85610; 85730; 93005; 96374; 96375; 99285; A4216; J2405; J2597

== ENCOUNTER 2022-11-27 15:03 | Inpatient (IN) | payer MEDICARE, SELFPAY ==
[2022-11-27 15:04] VITALS: BP 123/62; PULSE 88; RESP 16; TEMP 36.1; O2SAT 95; BMI 31.1
[2022-11-27 15:22] VITALS: BMI 31.1
[2022-11-27] MEDS: Losartan Potassium 50 MG Tablet PO (18:12)
[2022-11-27] MEDS: Ranolazine 500 MG Tablet PO (18:12)
[2022-11-27] MEDS: Famotidine 20 MG Tablet PO (18:12)
[2022-11-27] MEDS: Acetaminophen 500 MG Tablet 1000 MG PO (18:12)
[2022-11-27] MEDS: traZODone 50 MG Tablet 25 MG PO (19:57)
[2022-11-27] MEDS: Doxazosin 4 MG Tablet PO (19:57)
[2022-11-27] MEDS: Atorvastatin Calcium 80 MG Tablet PO (19:57)
[2022-11-27] MEDS: Pramipexole Di-HCl 0.5 MG Tablet PO (19:57)
--- NOTE | 2022-11-27 20:01 | NURSING ---
Pt requested medication at this time.
--- NOTE | 2022-11-27 20:29 | HP.PCM_ITS ---
[facility] - General General Date of Admission: 11/27/22 Date of Service: 11/27/22 Chief Complaint: Here for rehabilitation. HPI Narrative 11/17/2022 DARIUS GUERRERO, is a 87 Female who presents to [facility] Emergency Department with fall. Granddaughter heard a thud, found patient at bottom of 6 stairs. Dazed, but awake, trauma to right leg, bleeding from head. CT head multiple traumatic brain bleeds. DDAVP for plavix use, Hydralazine 20mg IV for elevated blood pressure. Morphine, Fentanyl given for right leg pain. No intubation needed. Transfer to [facility] for trauma admission. 11/17/2022 Admit to [facility]. Neurosurgery recommended no surgery for brain bleed. Keppra 250mg twice daily x 7 days for seizure prophylaxis. Left eyebrow laceration repaired with absorbale sutures. 11/18/2022 CT brain stable. 11/19/2022 Subcutaneous heparing DVT prophylaxis. Hold aspirin, Hold plavix for brain bleed. Chest X-ray showed small right pleural effusion. 11/20/2022 Labetalol 5mg for hypertension. 11/21/2022 Geriatrics started seroquel 25mg qhs for delirium. 11/22/2022 Hydralazine 10mg for hypertension. Seroquel stopped for somnolence. 11/24/2022 Chest X-ray stable. Oxygen per nasal cannula, wean as tolerated for hypoxia. Solu-medrol IV for COPD. 11/25/2022 Creatinine 1.61, baseline creatinine 1.45, encourage oral hydration. Left 12th rib posterior fracture, right L3 transverse process fracture treated conservatively. PT/OT SNF. More lethargic, CT head ordered. 11/27/2022 Admit to TCU with debility, here for rehabilitation, strengthening, prior to discharge home with granddaughter. REPLACED BY [facility] Medical History Asthma Atherosclerotic heart disease of [place] coronary artery without angina pectoris Bradycardia Chronic systolic (congestive) heart failure CKD (chronic kidney disease) COPD (chronic obstructive pulmonary disease) Essential hypertension Hiatal hernia History of left heart catheterization (LHC) (~02/22/19) Hyperlipidemia Lung cancer Nonrheumatic aortic (valve) stenosis with insufficiency Osteoarthritis Osteoarthritis Presence of coronary angioplasty implant and graft (~07/23/20) Primary cancer of right lower lobe of lung Right renal mass Spinal stenosis Home Medications acetaminophen 500 mg tablet 500 mg PO Q6H PRN PRN Pain 09/01/16 [History Last Taken Unknown] terazosin 5 mg capsule 5 mg PO QHS blood pressure 02/04/18 [History Last Taken Unknown] ropinirole 1 mg tablet 1 mg PO QHS RLS 11/02/20 [History Last Taken Unknown] bumetanide 2 mg tablet 2 mg PO DAILY water pill 09/12/21 [History Last Taken Unknown] potassium chloride 20 mEq tablet,extended release 20 meq PO DAILY supplement 09/12/21 [History Last Taken Unknown] rosuvastatin 40 mg tablet 40 mg PO DAILY cholesterol 09/12/21 [History Last Taken Unknown] albuterol sulfate 2.5 mg/3 mL (0.083 %) solution for nebulization 2.5 mg (3 mL) inhalation Q4H PRN Sob &/Or Wheezing #180 mL 11/21/21 [Rx Last Taken Unknown] losartan 50 mg tablet (Cozaar) 50 mg PO BID blood pressure 11/17/22 [History Last Taken Unknown] ranolazine 500 mg tablet,extended release,12 hr (Ranexa) 500 mg PO BID heart 11/17/22 [History Last Taken Unknown] amlodipine 10 mg tablet 10 mg PO DAILY blood pressure 11/27/22 [History Last Taken Unknown] famotidine 20 mg tablet 20 mg PO BID stomach 11/27/22 [History Last Taken Unknown] isosorbide mononitrate 60 mg tablet,extended release 24 hr 60 mg PO DAILY heart 11/27/22 [History Last Taken Unknown] sennosides 8.6 mg-docusate sodium 50 mg tablet (Senna with Docusate Sodium) 1 tab-cap PO BID PRN Constipation 11/27/22 [History Last Taken Unknown] trazodone 50 mg tablet 25 mg PO QHS sleep 11/27/22 [History Last Taken Unknown] Allergy/AdvReac Type Severity Reaction Status Date / Time Penicillins Allergy Severe Unknown Verified 11/17/22 04:29 aspirin Allergy Intermediate Other Verified 11/17/22 04:29 clonidine Allergy confusion Verified 11/18/22 09:08 grass pollen Allergy sneezing, Verified 11/17/22 04:29 coughing, rash codeine AdvReac Severe Unknown Verified 11/17/22 04:29 adhesive tape AdvReac Intermediate Rash Verified 11/17/22 04:29 milk AdvReac Mild Other Verified 11/17/22 04:29 house dust AdvReac sneezing, Verified 11/17/22 04:29 coughing tree and shrub pollen AdvReac sneezing, Verified 11/17/22 04:29 coughing Family History Mother Tuberculosis Father Prostate cancer Hypertension Surgical History Basal cell carcinoma History of back surgery History of bilateral cataract extraction History of bunionectomy History of section History of cholecystectomy History of hernia repair History of hysterectomy History of lobectomy of lung (~2012) History of lumbar laminectomy for spinal cord decompression History of tonsillectomy Presence of stent in coronary artery (~07/23/20) Social History (Updated 11/27/22 @ 20:[address] Neptali Gordon MD) household members: other details: Granddaughter lives with her. Smoking Status: Former smoker alcohol intake: current details: occasional substance use type: does not use caffeine: Yes Type: coffee Number of servings: 1 ROS Constitutional Constitutional: Denies chills, fever(s) or weight gain ENT HEENT: Denies headache(s), nasal congestion or nasal discharge Cardiovascular Cardiovascular: Denies chest pain or palpitations Respiratory/Chest Respiratory/Chest: Denies cough, excessive phlegm production or shortness of breath with exertion Gastrointestinal Gastrointestinal: Denies abdominal pain, nausea or vomiting Genitourinary Genitourinary: Denies dysuria Musculoskeletal Musculoskeletal: Denies joint pain or joint swelling Integumentary Integumentary: Denies rash or wounds Neurologic Neurologic: Denies focal weakness, numbness or tingling Psychiatric Psychiatric: Denies anxiety, auditory hallucinations, depression, homicidal ideation or suicidal ideation Vital Signs Vital Signs Vital Signs: 11/27/22 15:04 11/27/22 15:04 Temperature 97.0 F L Temperature Source Oral Pulse Rate 88 88 Pulse Rhythm Regular Pulse Strength Normal (2+) Respiratory Rate 16 Respiratory Effort Normal Non-Labored Respiratory Depth Normal Respiratory Pattern Normal Blood Pressure 123/62 H Blood Pressure Mean 82 Blood Pressure Source Monitor Blood Pressure Position Semi-Fowlers Blood Pressure Location Left Arm Pulse Ox 95 Oxygen Delivery Method Room Air Room Air Weight Weight: 74.752 kg Body Mass Index (BMI) 31.1 Physical Exam Const alert General Appearance: cooperative HEENT normocephalic Eyes PERRL and EOMs intact bilaterally Neck supple, no JVD and no carotid bruits Resp normal respiratory effort, normal air movement and clear to auscultation bilaterally Cardio regular rate and regular rhythm GI normal to inspection, nondistended, normoactive bowel sounds, non-tender and non-distended Extremity normal capillary refill Extremity Narrative: Right lower extremity bruising, swelling. General Extremity: Negative for edema Skin no rashes or lesions noted General Skin Exam: no breakdown Psych affect normal Appearance: appropriate Assessment & Plan Assessment/Plan (1) Debility: (2) Fall down stairs: (3) Intracranial hemorrhage: (4) Rib fracture: (5) Lumbar transverse process fracture: (6) Hypertension: (7) Hyperlipidemia: (8) Coronary artery disease: (9) Restless leg syndrome: (10) Chronic systolic congestive heart failure: (11) COPD (chronic obstructive pulmonary disease): PLAN: Plan 87 year old female with below past medical history hospitalized for fall down stairs, intracranial hemorrhage, left 12 rib fracture, L3 transverse process fracture, complicated by delirium, acute kidney injury, hypoxia, admitted to TCU with debility, here for rehabilitation, strengthening, prior to discharge home with granddaughter. * Debility - PT/OT. * Dysphagia - ST. * Pain - Tylenol 1000mg q6h prn pain (1-10). * Bowel - senna/colace 1 tablet bid. * Adult immunization - Administer pneumonia vaccine, covid19 vaccine, flu vaccine as appropriate. * DVT prophylaxis - Hold, brain bleed. * COPD - Albuterol 2.5mg q4h prn. * Hypertension - Losartan 50mg bid, Amlodipine 10mg daily, Doxazosin 4mg qhs. * Hyperlipidemia - Atorvastatin 80mg qhs. * Chronic systolic congestive heart failure - Losartan 50mg bid, Imdur 60mg daily, Bumex 2mg daily. * Coronary artery disease - Losartan 50mg bid, Imdur 60mg daily, Ranexa 500mg bid. * GERD - Famotidine 20mg bid. * Hypokalemia - KCL 20meq daily. * Restless leg syndrome - Mirapex 0.5mg qhs. * Insomnia - Trazodone 25mg qhs.
[2022-11-28] VITALS (8 sets, daily range): BP systolic 118–167; BP diastolic 51–75; PULSE 70–78; RESP 16–20; TEMP 36.5–37.1; O2SAT 93–96
[2022-11-28 05:49] LABS: Absolute Lymphocyte Count 1.81 X10^3/uL (0.83-4.51); Absolute Neutrophil Count 5.6 X10^3/uL (2.0-7.7); Basophil# 0.02 X10^3/uL; Basophil% 0.2 % (0-1); Eosinophil# 0.16 X10^3/uL; Eosinophils% 1.9 % (0-5); Hematocrit 27.9 % (37-47); Hemoglobin 8.8 g/dL (12.0-15.0); Lymphocyte # 1.81 X10^3/ul (0.83-4.51); Lymphocyte % 21.3 % (19-41); Mean Corp Hgb Conc 31.5 g/dL (32-36); Mean Corpuscular Hgb 31.4 pg (27.0-32.0); Mean Corpuscular Volume 99.6 fL (81-99); Mean Platelet Vol. 9.9 fl (6.2-12.0); Monocyte# 0.79 X10^3/uL; Monocyte% 9.3 % (0-10); NRBC Flagged by Analyzer 0 % (0-5); Neutrophil # 5.55 X10^3/uL (2.7-7.7); Neutrophil % 65.2 % (47-70); Platelet Count 222 K/mm3 (150-450); RBC Distribution Width CV 12.4 % (11.6-14.6); RBC Distribution Width SD 44.5 fl (35.1-43.9); White Blood Count 8.5 K/mm3 (4.4-11.0)
[2022-11-28] MEDS: Famotidine 20 MG Tablet PO (06:15)
[2022-11-28] MEDS: Isosorbide Mononitrate 60 MG Tablet PO (06:15)
[2022-11-28] MEDS: Bumetanide 2 MG Tablet PO (06:15)
[2022-11-28] MEDS: Ranolazine 500 MG Tablet PO ×2 (06:15→18:16)
[2022-11-28] MEDS: amLODIPine 10 MG Tablet PO (06:15)
[2022-11-28] MEDS: Losartan Potassium 50 MG Tablet PO ×2 (06:15→18:16)
[2022-11-28] MEDS: Senna/Docusate Sodium 1 Tablet PO ×2 (06:16→18:18)
[2022-11-28 06:20] LABS: Anion Gap 2 (5-15); BUN 18 mg/dL (7-18); BUN/Creat Ratio 16.2 RATIO (10-20); Calcium,Total 8.2 mg/dL (8.5-10.1); Chloride 111 mmol/L (98-107); Creatinine, Serum 1.11 mg/dL (0.55-1.02); EST Glomerular Filtration Rate 49 mL/min (>60); Est Glom Filt Rate - Afr Amer 60 mL/min (>60); Estimated Creatinine Clearance 26.44 ml/min; Glucose 104 mg/dL (74-106); Potassium 3.6 mmol/L (3.5-5.1); Sodium Level 142 mmol/L (136-145)
[2022-11-28] MEDS: Potassium Chloride Oral Tablet 20 MEQ PO (07:34)
--- NOTE | 2022-11-28 10:25 | PHA.CONS_ITS ---
TCU RX Drug Regimen Review
--- NOTE | 2022-11-28 10:25 | PCM.PN.DRR ---
TCU RX Drug Regimen Review Subjective: ES [id number] admitted to [facility] after a fall on 11/17. Admitted to TCU with debility on 11/27, here for rehab and strengthening prior to discharge home where she lives with granddaughter. Objective: Allergies Penicillins Allergy (Severe, Verified 11/17/22 04:29) Unknown aspirin Allergy (Intermediate, Verified 11/17/22 04:29) Other nose bleeds clonidine Allergy (Verified 11/18/22 09:08) confusion grass pollen Allergy (Verified 11/17/22 04:29) sneezing, coughing, rash codeine Adverse Reaction (Severe, Verified 11/17/22 04:29) Unknown cannot sleep adhesive tape Adverse Reaction (Intermediate, Verified 11/17/22 04:29) Rash itching milk Adverse Reaction (Mild, Verified 11/17/22 04:29) Other phlegm house dust Adverse Reaction (Verified 11/17/22 04:29) sneezing, coughing tree and shrub pollen Adverse Reaction (Verified 11/17/22 04:29) sneezing, coughing Current Medications Generic Name Dose Route Start Last Admin Trade Name Freq PRN Reason Stop Dose Admin Acetaminophen 1,000 mg 11/27/22 16:04 11/27/22 18:12 Acetaminophen 500 Mg Tablet PO 1,000 mg Q6H PRN PRN Administration Pain Score 1-10 Albuterol Sulfate 2.5 mg 11/27/22 15:18 Albuterol 2.5 Mg/3 Ml Vial.Neb. INHALATION Q4H PRN Sob &/Or Wheezing Amlodipine Besylate 10 mg 11/28/22 06:00 11/28/22 06:15 Amlodipine 10 Mg Tablet PO 10 mg DAILY ANGELA Administration Atorvastatin Calcium 80 mg 11/27/22 22:00 11/27/22 19:57 Atorvastatin Calcium 80 Mg Tablet PO 80 mg QHS ANGELA Administration Bumetanide 2 mg 11/28/22 06:00 11/28/22 06:15 Bumetanide 2 Mg Tablet PO 2 mg DAILY ANGELA Administration Doxazosin Mesylate 4 mg 11/27/22 22:00 11/27/22 19:57 Doxazosin 4 Mg Tablet PO 4 mg QHS ANGELA Administration Famotidine 20 mg 11/27/22 18:00 11/28/22 06:15 Famotidine 20 Mg Tablet PO 20 mg BID ANGELA Administration Hydralazine HCl 10 mg 11/28/22 12:00 Hydralazine 10 Mg Tablet PO 4X/DAY ANGELA Isosorbide Mononitrate 60 mg 11/28/22 06:00 11/28/22 06:15 Isosorbide Mononitrate 60 Mg Tablet PO 60 mg DAILY ANGELA Administration Losartan Potassium 50 mg 11/27/22 18:00 11/28/22 06:15 Losartan Potassium 50 Mg Tablet PO 50 mg BID ANGELA Administration Potassium Chloride 20 meq 11/28/22 08:00 11/28/22 07:34 Potassium Chloride Oral Tablet 20 Meq PO 20 meq DAILYCM ANGELA Administration Pramipexole Dihydrochloride 0.5 mg 11/27/22 22:00 11/27/22 19:57 Pramipexole Di-Hcl 0.5 Mg Tablet PO 0.5 mg QHS [facility] Administration Ranolazine 500 mg 11/27/22 18:00 11/28/22 06:15 Ranolazine 500 Mg Tablet PO 500 mg BID ANGELA Administration Senna/Docusate Sodium 1 tablet 11/28/22 06:00 11/28/22 06:16 Senna/Docusate Sodium 1 Tablet PO 1 tablet BID ANGELA Administration Trazodone HCl 25 mg 11/27/22 22:00 11/27/22 19:57 Trazodone 50 Mg Tablet PO 25 mg QHS ANGELA Administration Tuberculin PPD 0.1 ml 12/05/22 10:00 Tuberculin,Purif.Prot.Deriv. 50 Tu/Ml Vial ID 12/05/22 10:01 X1 ONE Problem List (Last Reviewed 11/27/22 @ 20:[address] Neptali Gordon MD) COPD (chronic obstructive pulmonary disease) (Chronic) Chronic systolic congestive heart failure (Chronic) Restless leg syndrome (Acute) Coronary artery disease (Acute) Hyperlipidemia (Acute) Hypertension (Chronic) Lumbar transverse process fracture (Acute) Rib fracture (Acute) Intracranial hemorrhage (Acute) Fall down stairs (Acute) Debility (Acute) Vital Signs Temp Pulse Resp BP Pulse Ox O2 Del Method 98.7 F 71 20 H 160/70 H 95 Room Air 11/28/22 05:00 11/28/22 05:00 11/28/22 05:00 11/28/22 05:00 11/28/22 05:00 11/28/22 05:00 Oxygen Delivery Method Room Air Weight: 74.752 kg Body Mass Index (BMI) 31.1 Sodium 142 mmol/L (136-145) 11/28/22 05:10 Potassium 3.6 mmol/L (3.5-5.1) 11/28/22 05:10 Chloride 111 mmol/L (98-107) H 11/28/22 05:10 Carbon Dioxide 29.0 mmol/L (21.0-32.0) 11/28/22 05:10 Anion Gap 2 (5-15) L 11/28/22 05:10 BUN 18 mg/dL (7-18) 11/28/22 05:10 Creatinine 1.11 mg/dL (0.55-1.02) H 11/28/22 05:10 Est GFR (MDRD) Af Amer 60 mL/min (>60) 11/28/22 05:10 Est GFR (MDRD) Non-Af 49 mL/min (>60) L 11/28/22 05:10 BUN/Creatinine Ratio 16.2 RATIO (10-20) 11/28/22 05:10 Glucose 104 mg/dL (74-106) 11/28/22 05:10 Assessment/Plan: 1. Pain - Tylenol 1000mg PO Q6H PRN pain (1-10). Monitor: pain levels, prn medication use. To date, patient has received one dose of prn medication. Pre-medication pain rated 6/10 in the back area, post-medication pain in the same area rated 2/10. it appears the patient's pain is well managed at this time. 2. Bowel - senna/colace 1 tablet PO BID. Monitor: increased/decreased constipation or diarrhea. To date, patient has had two bowel movements. 3. COPD - Albuterol 2.5mg Q4H PRN. Monitor: tremors, breathing quality, heart rate, prn medication use To date, patient has not received prn medication 4. Hypertension/Hyperlipidemia/Chronic systolic congestive heart failure/Coronary artery disease - Losartan 50mg PO BID, Amlodipine 10mg PO daily, Doxazosin 4mg PO QHS, Atorvastatin 80mg PO QHS, Imdur 60mg PO daily, Bumex 2mg PO daily, Ranexa 500mg PO BID. Monitor: BP (123-160/62-70), HR (71-88), dizziness, drowsiness, muscle aches, lipid panel at least annually (not on file), headache, extremity swelling, I/O, electrolytes. 5. GERD - Famotidine 20mg PO BID. Monitor: heartburn, headache, constipation, renal function (current est Crcl ~27 ml/min). Patient's Famotidine will be adjusted to once daily dosing per renal dosing policy due to CrCl <50mL/min. 6. Hypokalemia - KCL 20meq PO daily. Monitor: K levels (last level 3.6 on 11/28/22), S/S upset stomach/nausea 7. Restless leg syndrome - Mirapex 0.5mg PO QHS. Monitor: drowsiness, dizziness, insomnia Assessment/Plan for indications treated with psychotropic medications: 8. Insomnia - Trazodone 25mg PO QHS. Monitor: oversedation, drowsiness. Please consider a GDR by 05/2023 if clinically indicated, thank you. Medical chart and medication regimen reviewed. The following medication irregularities or issues were identified: *Hyperlipidemia - Atorvastatin 80mg PO QHS. Patient does not have a lipid panel on file, please consider adding one from another source or obtaining one. Thanks. * Insomnia - Trazodone 25mg PO QHS. Please consider a GDR by 05/2023 if clinically indicated, thank you. Date of Note:: 11/28/22
--- NOTE | 2022-11-28 10:45 | CASEMGMT ---
Social Work Pt asleep during multiple attempts to complete assessment. Also noted pt is confused. SW left voicemail for gddtr to complete assessment. lou elliott, RN GERIATRIC DIRECTOR OF FIELD SALES
[2022-11-28] MEDS: hydrALAZINE 10 MG Tablet PO ×3 (11:15→21:56)
[2022-11-28] MEDS: Tuberculin,Purif.prot.deriv. 50 TU/ML Vial 0.1 ML ID (11:15)
--- NOTE | 2022-11-28 13:31 | NURSING ---
Sericulture Teacher Note; Activity Asset: Jennifer Escalera is independent in her choice of daily activities. She prefers to be called Jessica. She has her own knitting stuff here to use along w/books and magazines. She stated she is just to tired right now but will work on it when she is feeling better. When read she would like to attend small craft activities and maybe try bingo. Staff will continue to remind her of daily activities and respect her right to say no.
--- NOTE | 2022-11-28 14:21 | NURSING ---
CT head w/o contrast ordered, per call to insurance company prior authorization not required for this procedure and diagnosis code. Last 4 of reference #[id number]
--- NOTE | 2022-11-28 14:45 | CASEMGMT ---
Social Work Gddtr returned phone call and answered questions to assessment. Introduced self and role. Educated to [facility] insurance with NRD 12/01, with $0 copays, and continued stay is not guaranteed with each review. TOYA educated to palliative services and 's request for consult. Gddtr agreeable to referral. Gddtr explained she moved in with pt about three weeks ago to provide gddtr housing. Gddtr was told she could stay for up to 9 mos, however, with recent admission, gddtr anticipates staying with pt to assist outside of work hours (second shift 5-6 days/wk). SDoH assessment completed as well. Gddtr reports to pt being a hoarder and house being dirty and cluttered, unable to walk safely. Since gddtr has moved in and pt has been admitted, cleaning and organizing has taken place. Gddtr asked about resources for railings to make safer in the home. TOYA offered to provide resources in pt''s room for gddtr to retrieve during evening visit. SW offered resources to gddtr for her own financial/housing/transportation situation. Gddtr appreciative. TOYA sent secure email to [facility] with referral. SW to continue to follow for DC planning. If pt DCs home, this worker plans to refer to APS. MERARI AshbyW
[2022-11-28] MEDS: Acetaminophen 500 MG Tablet 1000 MG PO (19:21)
[2022-11-28] MEDS: Pramipexole Di-HCl 0.5 MG Tablet PO (21:56)
[2022-11-28] MEDS: Doxazosin 4 MG Tablet PO (21:56)
[2022-11-28] MEDS: Atorvastatin Calcium 80 MG Tablet PO (21:57)
[2022-11-28] MEDS: traZODone 50 MG Tablet 25 MG PO (21:57)
--- NOTE | 2022-11-29 02:00 | NURSING ---
Addendum entered by Naila Weinstein 11/29/22 06:13: Dr. Gordon notified of CT results. New verbal order for repeat CT scan on Thursday12/01/22. Original Note: Pt was alert this shift per pt norm and able to follow all commands, drowsy but awakens easily to voice/touch. CT report still pending at this time, this nurse f/u with radiology and confirmed it was still unread at this time.
[2022-11-29 06:18] VITALS: BP 143/46; PULSE 66
[2022-11-29] MEDS: Isosorbide Mononitrate 60 MG Tablet PO (06:18)
[2022-11-29] MEDS: hydrALAZINE 10 MG Tablet PO ×2 (06:18→20:47)
[2022-11-29] MEDS: Bumetanide 2 MG Tablet PO (06:19)
[2022-11-29] MEDS: Acetaminophen 500 MG Tablet 1000 MG PO ×3 (06:19→20:45)
[2022-11-29] MEDS: Losartan Potassium 50 MG Tablet PO (06:19)
[2022-11-29] MEDS: amLODIPine 10 MG Tablet PO (06:20)
[2022-11-29] MEDS: Ranolazine 500 MG Tablet PO ×2 (06:20→17:28)
[2022-11-29] MEDS: Famotidine 20 MG Tablet PO (06:20)
[2022-11-29] MEDS: Senna/Docusate Sodium 1 Tablet PO (06:22)
[2022-11-29 06:33] VITALS: BP 143/46; PULSE 66
[2022-11-29 07:20] LABS: Anion Gap 7 (5-15); BUN 17 mg/dL (7-18); BUN/Creat Ratio 13.3 RATIO (10-20); Calcium,Total 8.4 mg/dL (8.5-10.1); Chloride 107 mmol/L (98-107); Creatinine, Serum 1.28 mg/dL (0.55-1.02); EST Glomerular Filtration Rate 42 mL/min (>60); Est Glom Filt Rate - Afr Amer 51 mL/min (>60); Estimated Creatinine Clearance 22.92 ml/min; Glucose 111 mg/dL (74-106); Potassium 3.3 mmol/L (3.5-5.1); Sodium Level 141 mmol/L (136-145)
[2022-11-29] MEDS: Potassium Chloride Oral Tablet 20 MEQ PO ×2 (07:41→17:27)
[2022-11-29] MEDS: Potassium Chloride Oral Tablet 20 MEQ 40 MEQ PO (10:27)
[2022-11-29 10:59] LABS: Absolute Lymphocyte Count 1.41 X10^3/uL (0.83-4.51); Absolute Neutrophil Count 7.2 X10^3/uL (2.0-7.7); Basophil# 0.03 X10^3/uL; Basophil% 0.3 % (0-1); Eosinophil# 0.18 X10^3/uL; Eosinophils% 1.8 % (0-5); Hemoglobin 9.3 g/dL (12.0-15.0); Lymphocyte # 1.41 X10^3/ul (0.83-4.51); Lymphocyte % 14.5 % (19-41); Mean Corpuscular Hgb 31.2 pg (27.0-32.0); Mean Corpuscular Volume 100.7 fL (81-99); Mean Platelet Vol. 9.8 fl (6.2-12.0); Monocyte# 0.71 X10^3/uL; Monocyte% 7.3 % (0-10); NRBC Flagged by Analyzer 0 % (0-5); Neutrophil # 7.19 X10^3/uL (2.7-7.7); Neutrophil % 73.7 % (47-70); Platelet Count 233 K/mm3 (150-450); RBC Distribution Width CV 12.5 % (11.6-14.6); RBC Distribution Width SD 44.9 fl (35.1-43.9); Red Blood Count 2.98 M/mm3 (4.2-5.4); White Blood Count 9.8 K/mm3 (4.4-11.0)
[2022-11-29 12:53] VITALS: BP 104/46; PULSE 67
[2022-11-29 12:55] VITALS: RESP 16; TEMP 36.6; O2SAT 95
--- NOTE | 2022-11-29 15:04 | NURSING ---
field attendant left message for dr patel regarding poor appetite, new order for remeron
[2022-11-29 17:25] VITALS: BP 116/45; PULSE 65
[2022-11-29] MEDS: Mirtazapine 15 MG Tablet 7.5 MG PO (20:46)
[2022-11-29 20:47] VITALS: BP 148/50; PULSE 62
[2022-11-29] MEDS: Doxazosin 4 MG Tablet PO (20:48)
[2022-11-29] MEDS: Pramipexole Di-HCl 0.5 MG Tablet PO (20:48)
[2022-11-29] MEDS: traZODone 50 MG Tablet 25 MG PO (20:48)
[2022-11-29] MEDS: Atorvastatin Calcium 80 MG Tablet PO (20:49)
[2022-11-30 05:20] LABS: Anion Gap 5 (5-15); BUN 16 mg/dL (7-18); BUN/Creat Ratio 11.3 RATIO (10-20); Calcium,Total 8.7 mg/dL (8.5-10.1); Chloride 109 mmol/L (98-107); Creatinine, Serum 1.42 mg/dL (0.55-1.02); EST Glomerular Filtration Rate 37 mL/min (>60); Est Glom Filt Rate - Afr Amer 45 mL/min (>60); Estimated Creatinine Clearance 20.66 ml/min; Glucose 116 mg/dL (74-106); Potassium 3.8 mmol/L (3.5-5.1); Sodium Level 139 mmol/L (136-145)
[2022-11-30] MEDS: Acetaminophen 500 MG Tablet 1000 MG PO ×2 (06:12→17:14)
[2022-11-30] MEDS: Ranolazine 500 MG Tablet PO ×2 (06:12→17:13)
[2022-11-30 06:13] VITALS: BP 145/67; PULSE 73
[2022-11-30] MEDS: Isosorbide Mononitrate 60 MG Tablet PO (06:13)
[2022-11-30] MEDS: amLODIPine 10 MG Tablet PO (06:13)
[2022-11-30] MEDS: Losartan Potassium 50 MG Tablet PO ×2 (06:13→17:13)
[2022-11-30] MEDS: Famotidine 20 MG Tablet PO (06:13)
[2022-11-30] MEDS: Bumetanide 2 MG Tablet PO (06:13)
[2022-11-30] MEDS: hydrALAZINE 10 MG Tablet PO ×2 (06:13→17:13)
[2022-11-30] MEDS: Senna/Docusate Sodium 1 Tablet PO ×2 (06:15→17:13)
[2022-11-30] MEDS: Potassium Chloride Oral Tablet 20 MEQ PO ×2 (08:08→17:13)
--- NOTE | 2022-11-30 15:05 | NURSING ---
Patient very drowsy today. Both doses of Hydralizine held due to patient not swallowing. Patient refused to swallow breakfast and became combative with staff.
[2022-11-30 15:11] VITALS: BP 125/59; PULSE 66; RESP 16; TEMP 36.8; O2SAT 96
[2022-11-30 17:13] VITALS: PULSE 84
[2022-11-30] MEDS: traZODone 50 MG Tablet 25 MG PO (20:26)
[2022-11-30] MEDS: Pramipexole Di-HCl 0.5 MG Tablet PO ×2 (20:27→20:30)
[2022-11-30] MEDS: Atorvastatin Calcium 80 MG Tablet PO (20:27)
[2022-11-30] MEDS: Doxazosin 4 MG Tablet PO (20:29)
[2022-11-30 20:37] VITALS: BP 94/37; PULSE 69
[2022-11-30] MEDS: Mirtazapine 15 MG Tablet 7.5 MG PO (20:40)
[2022-12-01] VITALS (7 sets, daily range): BP systolic 88–148; BP diastolic 21–68; PULSE 64–84; RESP 16; TEMP 36.8; O2SAT 94–95
[2022-12-01] MEDS: Famotidine 20 MG Tablet PO (05:16)
[2022-12-01] MEDS: Isosorbide Mononitrate 60 MG Tablet PO (05:16)
[2022-12-01] MEDS: Senna/Docusate Sodium 1 Tablet PO ×2 (05:16→17:50)
[2022-12-01] MEDS: Bumetanide 2 MG Tablet PO (05:17)
[2022-12-01] MEDS: amLODIPine 10 MG Tablet PO (05:17)
[2022-12-01] MEDS: Losartan Potassium 50 MG Tablet PO ×2 (05:17→17:47)
[2022-12-01] MEDS: Ranolazine 500 MG Tablet PO ×2 (05:17→17:47)
[2022-12-01] MEDS: hydrALAZINE 10 MG Tablet PO ×3 (05:17→20:56)
[2022-12-01] MEDS: Potassium Chloride Oral Tablet 20 MEQ PO ×2 (08:45→17:46)
--- NOTE | 2022-12-01 10:03 | CASEMGMT ---
Addendum entered by Tamela Tinsley 12/01/22 11:47: Liaison stated dtr was present for meeting and signed for hospice services at [place]. Original Note: Social Work Palliative in to meet with pt and gddtr. However, over the weekend, this worker was contacted by dtr, Sobeida Wharton, stating she is the NOK, not gddtr. Staff took contact information. SW updated palliative liaison as that is the most appropriate person to meet with for services. SW returned email to dtr offering for dtr to call this worker to discuss insurance, DC plans and answer questions. Will continue to follow. Tamela Tinsley, MERARI SNOWW
[2022-12-01] MEDS: Mirtazapine 15 MG Tablet 7.5 MG PO (20:55)
[2022-12-01] MEDS: Doxazosin 4 MG Tablet PO (20:58)
[2022-12-01] MEDS: traZODone 50 MG Tablet 25 MG PO (20:58)
[2022-12-01] MEDS: Atorvastatin Calcium 80 MG Tablet PO (20:58)
[2022-12-02 05:52] VITALS: BP 112/51; PULSE 97
[2022-12-02] MEDS: Bumetanide 2 MG Tablet PO (05:52)
[2022-12-02] MEDS: Isosorbide Mononitrate 60 MG Tablet PO (05:52)
[2022-12-02] MEDS: amLODIPine 10 MG Tablet PO (05:52)
[2022-12-02] MEDS: hydrALAZINE 10 MG Tablet PO ×4 (05:52→19:51)
[2022-12-02] MEDS: Losartan Potassium 50 MG Tablet PO ×2 (05:52→17:41)
[2022-12-02] MEDS: Ranolazine 500 MG Tablet PO ×2 (05:52→17:43)
[2022-12-02] MEDS: Famotidine 20 MG Tablet PO (05:52)
[2022-12-02] MEDS: Senna/Docusate Sodium 1 Tablet PO ×2 (05:57→17:47)
--- NOTE | 2022-12-02 10:26 | CASEMGMT ---
Daughter agreed to bring in copies of advanced directives once retrieved from research attorney's office. MERARI AshbyW
[2022-12-02 11:30] VITALS: PULSE 80; RESP 18; O2SAT 88
[2022-12-02 11:51] VITALS: BP 112/47; PULSE 71
--- NOTE | 2022-12-02 14:07 | NURSING ---
Addendum entered by Valencia Oates 12/02/22 14:13: Jagruti Taylor INTERIOR BLOCK WIRER number [phone] Original Note: [facility] [place] [facility] ordered CT to head 12/16@ 11:40 in [place], f/u apt on 12/24 1:00pm in [place] ([address]/[place] [address]) Left VM on dtr phone for updates
[2022-12-02 14:26] VITALS: BP 118/64; PULSE 79; RESP 14; TEMP 36.3; O2SAT 96
[2022-12-02 15:30] VITALS: BMI 31.0
[2022-12-02 17:41] VITALS: BP 118/64; PULSE 79
[2022-12-02] MEDS: Acetaminophen 500 MG Tablet 1000 MG PO (19:04)
[2022-12-02] MEDS: Mirtazapine 15 MG Tablet 7.5 MG PO (19:50)
[2022-12-02] MEDS: Doxazosin 4 MG Tablet PO (19:50)
[2022-12-02 19:51] VITALS: BP 101/57; PULSE 64
[2022-12-02] MEDS: Pramipexole Di-HCl 0.5 MG Tablet PO (19:51)
[2022-12-02] MEDS: traZODone 50 MG Tablet 25 MG PO (19:51)
[2022-12-02] MEDS: Atorvastatin Calcium 80 MG Tablet PO (19:51)
[2022-12-02] MEDS: Potassium Chloride Oral Soln 20 MEQ/15 ML UDC PO (19:52)
[2022-12-03 05:58] VITALS: BP 138/50; PULSE 65
[2022-12-03] MEDS: hydrALAZINE 10 MG Tablet PO ×4 (05:58→21:31)
[2022-12-03] MEDS: Bumetanide 2 MG Tablet PO (06:00)
[2022-12-03] MEDS: Losartan Potassium 50 MG Tablet PO ×2 (06:00→17:04)
[2022-12-03] MEDS: Senna/Docusate Sodium 1 Tablet PO ×2 (06:00→17:03)
[2022-12-03] MEDS: amLODIPine 10 MG Tablet PO (06:00)
[2022-12-03] MEDS: Isosorbide Mononitrate 60 MG Tablet PO (06:00)
[2022-12-03] MEDS: Menthol/Lanolin/Calamine/Znox 113 GM Tube 1 APPLIC TOPICAL ×2 (06:00→17:09)
[2022-12-03] MEDS: Famotidine 20 MG Tablet PO (06:00)
[2022-12-03] MEDS: Ranolazine 500 MG Tablet PO ×2 (06:00→17:04)
[2022-12-03] MEDS: Potassium Chloride Oral Soln 20 MEQ/15 ML UDC PO ×2 (08:12→17:03)
--- NOTE | 2022-12-03 10:45 | CASEMGMT ---
Social Work Multiple attempts to complete MDS assessment but pt is not arousable. Staff assessment completed. Tamela Tinsley, COAL PIPELINE OPERATOR PHYSICAL THERAPY SUPERVISOR
[2022-12-03 12:30] VITALS: PULSE 88
[2022-12-03 14:55] VITALS: BP 112/51; PULSE 78; RESP 14; TEMP 36.1; O2SAT 95
--- NOTE | 2022-12-03 15:54 | CASEMGMT ---
Social Work IDT met with dtr and ARTEM for patient's care plan meeting. [place] in [facility] and family opted for pt to remain [place] [facility] for duration of meeting. Discussed patient's progress in PT/OT/ST/SN. Educated to [facility] insurance with NRD 12/10, EDC 12/13. SW broached topic of having alternative DC plan as pt is not making significant progress. Family in agreement pt cannot return home and pt needs 29/12 care. IDT recommending SNF. Family agrees. SW provided printed list of [facility] SNFs that are INN with insurance, including quality and resource data via [employer] Guide. Confirmed plan is pt to admit to hospice at [facility] with [facility]. Dtr explains pt is currently in court for bankruptcy, thus pt will need to apply for Medicaid for SNF stay. SW educated to [facility] referral for application process. Encouraged family to have SNF choices and CALI lilly completed by end of the week d/t to upcoming holiday long weekend and then having insurance update. Family expressed understanding. [facility] referral made via secure email. SW to continue to follow. MERARI Ashby AUDIO VISUAL ENGINEER
[2022-12-03 17:03] VITALS: PULSE 78
[2022-12-03] MEDS: Mirtazapine 15 MG Tablet 7.5 MG PO (21:29)
[2022-12-03] MEDS: traZODone 50 MG Tablet 25 MG PO (21:30)
[2022-12-03] MEDS: Atorvastatin Calcium 80 MG Tablet PO (21:30)
[2022-12-03] MEDS: Pramipexole Di-HCl 0.5 MG Tablet PO (21:30)
[2022-12-03 21:31] VITALS: BP 127/45; PULSE 73
[2022-12-03] MEDS: Doxazosin 4 MG Tablet PO (21:31)
[2022-12-03 22:03] VITALS: PULSE 78; RESP 16; O2SAT 92
[2022-12-04 05:06] VITALS: BP 109/53; PULSE 72
[2022-12-04] MEDS: amLODIPine 10 MG Tablet PO (05:06)
[2022-12-04] MEDS: Famotidine 20 MG Tablet PO (05:06)
[2022-12-04] MEDS: Bumetanide 2 MG Tablet PO (05:06)
[2022-12-04] MEDS: Isosorbide Mononitrate 60 MG Tablet PO (05:06)
[2022-12-04] MEDS: Losartan Potassium 50 MG Tablet PO (05:06)
[2022-12-04] MEDS: hydrALAZINE 10 MG Tablet PO ×3 (05:06→21:25)
[2022-12-04] MEDS: Ranolazine 500 MG Tablet PO ×2 (05:06→17:39)
[2022-12-04] MEDS: Menthol/Lanolin/Calamine/Znox 113 GM Tube 1 APPLIC TOPICAL ×2 (05:07→17:43)
[2022-12-04] MEDS: Senna/Docusate Sodium 1 Tablet PO ×2 (05:08→17:39)
[2022-12-04] MEDS: Potassium Chloride Oral Soln 20 MEQ/15 ML UDC PO ×2 (07:50→17:39)
[2022-12-04 13:37] VITALS: BP 116/54; PULSE 75; RESP 14; TEMP 36.2; O2SAT 97
[2022-12-04 17:39] VITALS: PULSE 66
[2022-12-04] MEDS: Mirtazapine 15 MG Tablet 7.5 MG PO (21:24)
[2022-12-04] MEDS: Pramipexole Di-HCl 0.5 MG Tablet PO (21:24)
[2022-12-04 21:25] VITALS: BP 117/57; PULSE 68
[2022-12-04] MEDS: Atorvastatin Calcium 80 MG Tablet PO (21:25)
[2022-12-04] MEDS: traZODone 50 MG Tablet 25 MG PO (21:25)
[2022-12-04] MEDS: Doxazosin 4 MG Tablet PO (21:25)
[2022-12-04 21:31] VITALS: BP 117/57; PULSE 68
[2022-12-05] VITALS (7 sets, daily range): BP systolic 118–130; BP diastolic 40–53; PULSE 63–83; RESP 16; TEMP 35.8; O2SAT 96
[2022-12-05] MEDS: Losartan Potassium 50 MG Tablet PO ×2 (05:23→18:25)
[2022-12-05] MEDS: amLODIPine 10 MG Tablet PO (05:23)
[2022-12-05] MEDS: Famotidine 20 MG Tablet PO (05:23)
[2022-12-05] MEDS: hydrALAZINE 10 MG Tablet PO ×4 (05:23→19:30)
[2022-12-05] MEDS: Bumetanide 2 MG Tablet PO (05:23)
[2022-12-05] MEDS: Menthol/Lanolin/Calamine/Znox 113 GM Tube 1 APPLIC TOPICAL ×2 (05:24→18:24)
[2022-12-05] MEDS: Senna/Docusate Sodium 1 Tablet PO ×2 (05:25→18:24)
--- NOTE | 2022-12-05 05:32 | NURSING ---
Pt refused 0600 admin of Imdur and Ranexa (both meds cannot be crushed). After taking the rest of her meds that can be crushed, she slapped the spoon with whole Imdur in applesauce out of this nurses hand and stated I am not taking anymore. Attempted x3 and educated pt but pt continued to refuse.
[2022-12-05 06:10] LABS: Absolute Lymphocyte Count 1.13 X10^3/uL (0.83-4.51); Absolute Neutrophil Count 8.1 X10^3/uL (2.0-7.7); Basophil# 0.03 X10^3/uL; Basophil% 0.3 % (0-1); Eosinophil# 0.13 X10^3/uL; Eosinophils% 1.3 % (0-5); Hematocrit 28.4 % (37-47); Lymphocyte # 1.13 X10^3/ul (0.83-4.51); Lymphocyte % 11.1 % (19-41); Mean Corp Hgb Conc 31.7 g/dL (32-36); Mean Corpuscular Hgb 31.4 pg (27.0-32.0); Mean Platelet Vol. 10.1 fl (6.2-12.0); Monocyte# 0.71 X10^3/uL; NRBC Flagged by Analyzer 0 % (0-5); Neutrophil # 8.14 X10^3/uL (2.7-7.7); Neutrophil % 79.8 % (47-70); Platelet Count 217 K/mm3 (150-450); RBC Distribution Width CV 12.9 % (11.6-14.6); RBC Distribution Width SD 45.9 fl (35.1-43.9); Red Blood Count 2.87 M/mm3 (4.2-5.4); White Blood Count 10.2 K/mm3 (4.4-11.0)
[2022-12-05 06:43] LABS: Anion Gap 6 (5-15); BUN 24 mg/dL (7-18); BUN/Creat Ratio 12.8 RATIO (10-20); Calcium,Total 8.7 mg/dL (8.5-10.1); Chloride 109 mmol/L (98-107); Creatinine, Serum 1.87 mg/dL (0.55-1.02); EST Glomerular Filtration Rate 27 mL/min (>60); Est Glom Filt Rate - Afr Amer 33 mL/min (>60); Estimated Creatinine Clearance 15.69 ml/min; Glucose 125 mg/dL (74-106); Sodium Level 140 mmol/L (136-145)
[2022-12-05] MEDS: Potassium Chloride Oral Soln 20 MEQ/15 ML UDC PO ×2 (09:07→18:24)
[2022-12-05] MEDS: Tuberculin,Purif.prot.deriv. 50 TU/ML Vial 0.1 ML ID (11:58)
[2022-12-05] MEDS: Ranolazine 500 MG Tablet PO (18:24)
[2022-12-05] MEDS: Atorvastatin Calcium 80 MG Tablet PO (19:30)
[2022-12-05] MEDS: Mirtazapine 15 MG Tablet 7.5 MG PO (19:30)
[2022-12-05] MEDS: traZODone 50 MG Tablet 25 MG PO (19:31)
[2022-12-05] MEDS: Pramipexole Di-HCl 0.5 MG Tablet PO (19:31)
[2022-12-05] MEDS: Doxazosin 4 MG Tablet PO (19:32)
--- NOTE | 2022-12-05 19:42 | NURSING ---
All HS meds given early d/t pt asking to go to bed and sleep.
[2022-12-06 06:31] VITALS: BP 125/50; PULSE 69
[2022-12-06] MEDS: Senna/Docusate Sodium 1 Tablet PO ×2 (08:55→17:53)
[2022-12-06] MEDS: amLODIPine 10 MG Tablet PO (08:55)
[2022-12-06] MEDS: Losartan Potassium 50 MG Tablet PO ×2 (08:55→17:44)
[2022-12-06] MEDS: Famotidine 20 MG Tablet PO (08:55)
[2022-12-06] MEDS: Ranolazine 500 MG Tablet PO ×2 (08:55→17:44)
[2022-12-06 08:56] VITALS: PULSE 69
[2022-12-06] MEDS: Bumetanide 2 MG Tablet PO (08:56)
[2022-12-06] MEDS: hydrALAZINE 10 MG Tablet PO ×4 (08:56→19:59)
[2022-12-06] MEDS: Potassium Chloride Oral Soln 20 MEQ/15 ML UDC PO ×2 (08:56→17:43)
[2022-12-06] MEDS: Isosorbide Mononitrate 60 MG Tablet PO (08:57)
[2022-12-06 12:31] VITALS: PULSE 69
[2022-12-06] MEDS: Menthol/Lanolin/Calamine/Znox 113 GM Tube 1 APPLIC TOPICAL ×2 (12:33→17:53)
[2022-12-06 13:42] VITALS: BP 96/51; PULSE 66; RESP 16; TEMP 35.9; O2SAT 96
[2022-12-06 17:43] VITALS: PULSE 64
[2022-12-06 19:59] VITALS: BP 102/49; PULSE 78
[2022-12-06] MEDS: Pramipexole Di-HCl 0.5 MG Tablet PO (19:59)
[2022-12-06] MEDS: Doxazosin 4 MG Tablet PO (20:00)
[2022-12-06] MEDS: traZODone 50 MG Tablet 25 MG PO (20:00)
[2022-12-06] MEDS: Mirtazapine 15 MG Tablet 7.5 MG PO (20:00)
[2022-12-06] MEDS: Atorvastatin Calcium 80 MG Tablet PO (20:01)
[2022-12-07] MEDS: Ranolazine 500 MG Tablet PO ×2 (05:12→17:38)
[2022-12-07 05:13] VITALS: BP 113/50; PULSE 67
[2022-12-07] MEDS: Famotidine 20 MG Tablet PO (05:13)
[2022-12-07] MEDS: hydrALAZINE 10 MG Tablet PO ×3 (05:13→17:37)
[2022-12-07] MEDS: Bumetanide 2 MG Tablet PO (05:13)
[2022-12-07] MEDS: Losartan Potassium 50 MG Tablet PO ×2 (05:13→17:38)
[2022-12-07] MEDS: amLODIPine 10 MG Tablet PO (05:13)
[2022-12-07] MEDS: Menthol/Lanolin/Calamine/Znox 113 GM Tube 1 APPLIC TOPICAL ×2 (05:17→17:50)
[2022-12-07] MEDS: Senna/Docusate Sodium 1 Tablet PO ×2 (05:18→17:50)
[2022-12-07] MEDS: Isosorbide Mononitrate 60 MG Tablet PO (08:07)
[2022-12-07] MEDS: Potassium Chloride Oral Soln 20 MEQ/15 ML UDC PO ×2 (08:07→17:37)
[2022-12-07 11:48] VITALS: PULSE 68
[2022-12-07 15:08] VITALS: BP 100/46; PULSE 71; RESP 16; TEMP 36.5; O2SAT 97
--- NOTE | 2022-12-07 15:46 | NURSING ---
Pt LBM 12/02/22. Dr. Jack Updated N.O. received for Milk of Mg 30cc PRN and Dulcolax 10 mg RC PRN. Orders read back.
[2022-12-07 17:37] VITALS: PULSE 71
[2022-12-07] MEDS: Pramipexole Di-HCl 0.5 MG Tablet PO (21:18)
[2022-12-07] MEDS: Atorvastatin Calcium 80 MG Tablet PO (21:19)
[2022-12-07] MEDS: traZODone 50 MG Tablet 25 MG PO (21:20)
[2022-12-07] MEDS: Mirtazapine 15 MG Tablet 7.5 MG PO (21:20)
--- NOTE | 2022-12-07 21:28 | NURSING ---
2200 Hydralazine and Cardura held. BP 89/36 and heart rate 65. Patient asymptomatic and tends to run low for blood pressure.
[2022-12-07 21:30] VITALS: O2SAT 95
[2022-12-08 05:16] VITALS: BMI 30.8
[2022-12-08] MEDS: Famotidine 20 MG Tablet PO (05:32)
[2022-12-08] MEDS: amLODIPine 10 MG Tablet PO (05:32)
[2022-12-08] MEDS: Losartan Potassium 50 MG Tablet PO (05:32)
[2022-12-08 05:33] VITALS: BP 149/60; PULSE 69
[2022-12-08] MEDS: hydrALAZINE 10 MG Tablet PO (05:33)
[2022-12-08] MEDS: Bumetanide 2 MG Tablet PO (05:33)
[2022-12-08] MEDS: Ranolazine 500 MG Tablet PO ×2 (05:33→17:03)
[2022-12-08] MEDS: Menthol/Lanolin/Calamine/Znox 113 GM Tube 1 APPLIC TOPICAL ×2 (05:38→17:08)
[2022-12-08] MEDS: Senna/Docusate Sodium 1 Tablet PO ×2 (05:39→17:03)
[2022-12-08] MEDS: Potassium Chloride Oral Soln 20 MEQ/15 ML UDC PO ×2 (08:37→17:03)
[2022-12-08] MEDS: Isosorbide Mononitrate 60 MG Tablet PO (08:37)
[2022-12-08 12:18] VITALS: BP 94/40; PULSE 70
[2022-12-08 14:15] VITALS: BP 77/37; PULSE 69; RESP 14; TEMP 36.7; O2SAT 91
[2022-12-08] MEDS: 0.9% Normal Saline 1,000 ML 250 ML IV (15:56)
[2022-12-08 16:20] LABS: Anion Gap 5 (5-15); BUN 39 mg/dL (7-18); BUN/Creat Ratio 14.3 RATIO (10-20); Chloride 107 mmol/L (98-107); Creatinine, Serum 2.73 mg/dL (0.55-1.02); EST Glomerular Filtration Rate 17 mL/min (>60); Est Glom Filt Rate - Afr Amer 21 mL/min (>60); Estimated Creatinine Clearance 10.75 ml/min; Glucose 161 mg/dL (74-106); Magnesium 1.9 mg/dL (1.6-2.6); Phosphorus 3.8 mg/dL (2.5-4.9); Potassium 4.1 mmol/L (3.5-5.1); Sodium Level 137 mmol/L (136-145)
[2022-12-08 19:33] VITALS: BP 94/40
[2022-12-08 20:41] VITALS: BP 119/50; PULSE 67
--- NOTE | 2022-12-08 20:42 | NURSING ---
BP rechecked after bolus and recorded. Secure Backine message sent to Dr. Sanderson per order. No new orders received. Will continue to monitor.
[2022-12-08] MEDS: traZODone 50 MG Tablet 25 MG PO (22:21)
[2022-12-08] MEDS: Atorvastatin Calcium 80 MG Tablet PO (22:21)
[2022-12-08] MEDS: Mirtazapine 15 MG Tablet 7.5 MG PO (22:21)
[2022-12-08] MEDS: Pramipexole Di-HCl 0.5 MG Tablet PO (22:21)
[2022-12-09] MEDS: 0.9% Normal Saline 1,000 ML 70 ML IV (00:16)
[2022-12-09] MEDS: Ranolazine 500 MG Tablet PO ×2 (05:03→17:45)
[2022-12-09] MEDS: Famotidine 20 MG Tablet PO (05:03)
[2022-12-09] MEDS: Menthol/Lanolin/Calamine/Znox 113 GM Tube 1 APPLIC TOPICAL ×2 (05:03→17:45)
[2022-12-09 06:09] LABS: Hematocrit 27.2 % (37-47); Hemoglobin 8.5 g/dL (12.0-15.0); Mean Corp Hgb Conc 31.3 g/dL (32-36); Mean Corpuscular Hgb 31.5 pg (27.0-32.0); Mean Corpuscular Volume 100.7 fL (81-99); Mean Platelet Vol. 10.1 fl (6.2-12.0); Platelet Count 204 K/mm3 (150-450); RBC Distribution Width CV 12.6 % (11.6-14.6); RBC Distribution Width SD 45.9 fl (35.1-43.9); White Blood Count 5.9 K/mm3 (4.4-11.0)
[2022-12-09 06:51] LABS: Anion Gap 3 (5-15); BUN 32 mg/dL (7-18); BUN/Creat Ratio 14.4 RATIO (10-20); Calcium,Total 8.4 mg/dL (8.5-10.1); Chloride 112 mmol/L (98-107); Creatinine, Serum 2.22 mg/dL (0.55-1.02); EST Glomerular Filtration Rate 22 mL/min (>60); Est Glom Filt Rate - Afr Amer 27 mL/min (>60); Estimated Creatinine Clearance 13.22 ml/min; Glucose 111 mg/dL (74-106); Potassium 3.8 mmol/L (3.5-5.1); Sodium Level 140 mmol/L (136-145)
[2022-12-09] MEDS: Senna/Docusate Sodium 1 Tablet PO (07:57)
[2022-12-09] MEDS: Isosorbide Mononitrate 60 MG Tablet PO (07:57)
[2022-12-09] MEDS: Potassium Chloride Oral Soln 20 MEQ/15 ML UDC PO ×2 (07:57→17:45)
--- NOTE | 2022-12-09 11:16 | PN_ITS ---
Subjective Subjective Afebrile VSS -she was hypotensive yesterday at 77/37 and IV fluids were ordered. The last blood pressure recorded was at approximately 9 PM last night and it was 119/50 with a heart rate of 67. All antihypertensives are still on hold. We did continue the nitrate. Maintaining appropriate oxygen saturation on RA Oral intake is poor. Oral intake of fluid yesterday was only 120 cc. Weight today is 159 pounds, down from 163 pounds yesterday. She is down 18 pounds from 11/17/2022. Discussed with nursing - no problems that need addressed Reviewed the PT/OT/ST notes She ambulated 25 ft with PT today with [facility] at [facility]. She is TA with eating and min assist with grooming. Min assist with upper body dressing but total assist with lower body dressing. Mod assist with toileting. Medication list reviewed. All lab from today was personally reviewed. White blood cell count is normal. Hemoglobin is 8.5 which is down from 9.0 on 12/05/2022 and this may be secondary to hydration. MCV is elevated at 100.7. The RDW is mildly elevated. Platelets are normal. Sodium is 140 with a potassium of 3.8. The BUN today is 32, down from 39 yesterday and the current creatinine is 2.22, down from 2.73 yesterday. The creatinine on 11/28/2022 was 1.11. Phosphorus and magnesium were normal yesterday. Patient was sleeping when I entered the room. Her dtr Stoney was in the room and we talked. Lali was very active prior to the fall down the steps and the head injury. She was living independently. She fatigues easily but, has been cooperative with the therapists. She is not eating or drinking. I explained to her dtr that this is often due to depression when someone has a head injury and realizes the are now being asked to do thinks they did as a child and now they are unable to do these things........this is bailey true with ST.......people feel like they are being treated like children often. I explained that Remeron is a anbtidepressant that we often use when someone is not eating because it stimulates appetite. Stoney is agreeable to Remeron. Actually Remeron had already been started by Dr. Gordon and I am increasing to a5 mg from 7.5. I explained about the low blood pressure yesterday and the dehydration. We are going to keep some fluids going until she is eating and drinking. She has had less than 500 cc/day for many days in a row. Stoney tells me that she does not like her food pureed but, I explained that the head injury caused problems with her swallowing and if we advance her diet at this time she would likely end up with PNA. Objective Data Objective Data Vital Signs: Vital Signs Temp Pulse Resp BP Pulse Ox O2 Del Method O2 Flow Rate 98.0 F 67 14 119/50 L 91 Room Air 98 12/08/22 14:15 12/08/22 20:41 12/08/22 14:15 12/08/22 20:41 12/08/22 14:15 12/08/22 14:15 11/29/22 20:45 Oxygen Flow Rate (L/min) 98 Oxygen Delivery Method Room Air Weight: 159 lb Body Mass Index (BMI) 30.0 Intake & Output: Intake and Output for Last 24 Hours 12/07/22 12/08/22 12/09/22 23:59 23:59 23:59 Intake Total 420 / 420 1120 / 1120 237 / 237 Balance 420 / 420 1120 / 1120 237 / 237 Lab / Micro Data 12/09/22 05:10 12/09/22 05:10 Labs: Laboratory Results - last 24 hr 12/08/22 15:33: Sodium 137, Potassium 4.1, Chloride 107, Carbon Dioxide 25.0, Anion Gap 5, BUN 39 H, Creatinine 2.73 H, Estim Creat Clear Calc 10.75, Est GFR (MDRD) Af Amer 21 L, Est GFR (MDRD) Non-Af 17 L, BUN/Creatinine Ratio 14.3, Glucose 161 H, Calcium 9.0, Phosphorus 3.8, Magnesium 1.9 12/09/22 05:10: WBC 5.9, RBC 2.70 L, Hgb 8.5 L, Hct 27.2 L, MCV 100.7 H, MCH 31.5, MCHC 31.3 L, RDW Std Deviation 45.9 H, RDW Coeff of Cha 12.6, Plt Count 204, MPV 10.1, Sodium 140, Potassium 3.8, Chloride 112 H, Carbon Dioxide 25.0, Anion Gap 3 L, BUN 32 H, Creatinine 2.22 H, Estim Creat Clear Calc 13.22, Est GFR (MDRD) Af Amer 27 L, Est GFR (MDRD) Non-Af 22 L, BUN/Creatinine Ratio 14.4, Glucose 111 H, Calcium 8.4 L Physical Exam Const Constitutional Narrative: sleepy but, she aroused and said a few words to me. She did not appear to be in any pain. HEENT Mouth: dry mucous membranes Resp clear to auscultation bilaterally Resp Narrative: anterior and lateral. She is not tachypneic and she has no labored breathing or accessory muscle use. Cardio regular rate, regular rhythm and no gallops GI GI Narrative: Soft, no guarding with palpation. BS's present in all quadrants. Extremity no calf tenderness General Extremity: Negative for edema Skin Rashes: no rashes Assessment & Plan Assessment/Plan (1) Debility: (2) Intracranial hemorrhage: (3) Fall down stairs: (4) Hypotension: (5) Dehydration: (6) Inanition: (7) Depression: (8) Macrocytic anemia: (9) Acute on chronic renal failure: (10) Cognitive dysfunction: (11) Dysphagia: PLAN: Plan 1. Continue therapy 2. Increase Remeron to 15 mg p.o. nightly. 3. Continue to hold antihypertensives but will order hydralazine as needed systolic over 160 or diastolic over 90. 4. Will continue IV fluids at 75 cc/hr until she is able to increase fluid intake and eat. 5. Recheck a BMP and CBC on Thursday Charges/Coding Visit Charges Inpatient E&M: 78852 SNF Subs L2
[2022-12-09 13:23] VITALS: BMI 35.6
[2022-12-09 13:45] VITALS: BP 119/53; BP 123/48; BP 128/51; PULSE 75; PULSE 76; PULSE 91
[2022-12-09 14:08] VITALS: BP 118/64; PULSE 76; RESP 14; TEMP 36.4; O2SAT 99
[2022-12-09] MEDS: 0.9% Saline Lock 10 ML Syringe IV (18:56)
[2022-12-09] MEDS: Lactated Ringers 1,000 ML 75 ML IV (18:56)
[2022-12-09] MEDS: Pramipexole Di-HCl 0.5 MG Tablet PO (21:26)
[2022-12-09] MEDS: Mirtazapine 15 MG Tablet PO (21:26)
[2022-12-09] MEDS: MELATONIN 3 MG TABLET 1.5 MG PO (21:27)
[2022-12-09] MEDS: traZODone 50 MG Tablet 25 MG PO (21:27)
[2022-12-09] MEDS: Atorvastatin Calcium 80 MG Tablet PO (21:27)
[2022-12-09 21:33] VITALS: O2SAT 94
[2022-12-10 06:00] VITALS: BMI 30.9
[2022-12-10] MEDS: Famotidine 20 MG Tablet PO (06:06)
[2022-12-10] MEDS: Ranolazine 500 MG Tablet PO ×2 (06:06→16:56)
[2022-12-10] MEDS: Senna/Docusate Sodium 1 Tablet PO ×2 (06:07→16:58)
[2022-12-10] MEDS: Menthol/Lanolin/Calamine/Znox 113 GM Tube 1 APPLIC TOPICAL ×2 (06:13→17:04)
[2022-12-10] MEDS: Potassium Chloride Oral Soln 20 MEQ/15 ML UDC PO ×2 (07:43→16:56)
[2022-12-10] MEDS: Isosorbide Mononitrate 60 MG Tablet PO (07:44)
[2022-12-10] MEDS: Lactated Ringers 1,000 ML 75 ML IV (08:34)
--- NOTE | 2022-12-10 08:40 | MDS.RN ---
Information for the mds was obtained from review of the clinical record, interview of resident, staff, and direct observation of resident's care
[2022-12-10 08:46] LABS: Absolute Lymphocyte Count 1.17 X10^3/uL (0.83-4.51); Absolute Neutrophil Count 2.7 X10^3/uL (2.0-7.7); Basophil# 0.02 X10^3/uL; Basophil% 0.5 % (0-1); Eosinophil# 0.14 X10^3/uL; Eosinophils% 3.2 % (0-5); Hematocrit 27.2 % (37-47); Hemoglobin 8.4 g/dL (12.0-15.0); Lymphocyte # 1.17 X10^3/ul (0.83-4.51); Lymphocyte % 26.5 % (19-41); Mean Corp Hgb Conc 30.9 g/dL (32-36); Mean Corpuscular Hgb 31.2 pg (27.0-32.0); Mean Corpuscular Volume 101.1 fL (81-99); Mean Platelet Vol. 9.8 fl (6.2-12.0); Monocyte# 0.38 X10^3/uL; Monocyte% 8.6 % (0-10); NRBC Flagged by Analyzer 0 % (0-5); Neutrophil # 2.68 X10^3/uL (2.7-7.7); Neutrophil % 60.7 % (47-70); Platelet Count 192 K/mm3 (150-450); RBC Distribution Width CV 12.3 % (11.6-14.6); RBC Distribution Width SD 45.1 fl (35.1-43.9); Red Blood Count 2.69 M/mm3 (4.2-5.4); White Blood Count 4.4 K/mm3 (4.4-11.0)
[2022-12-10 09:01] LABS: Anion Gap 4 (5-15); BUN 21 mg/dL (7-18); BUN/Creat Ratio 11.8 RATIO (10-20); Calcium,Total 8.6 mg/dL (8.5-10.1); Chloride 112 mmol/L (98-107); Creatinine, Serum 1.78 mg/dL (0.55-1.02); EST Glomerular Filtration Rate 29 mL/min (>60); Est Glom Filt Rate - Afr Amer 35 mL/min (>60); Estimated Creatinine Clearance 16.49 ml/min; Glucose 129 mg/dL (74-106); Potassium 3.9 mmol/L (3.5-5.1); Sodium Level 140 mmol/L (136-145)
--- NOTE | 2022-12-10 09:19 | CASEMGMT ---
Addendum entered by Tamela Tinsley 12/10/22 13:15: W, [facility] and [facility] do not have beds available. [facility] and [facility] are contacting the dtr to complete financial risk assessment. [facility] is contacting dtr to complete Medicaid application. Insurance issued LCD 12/12, [place] 12/13. SW to phone dtr and FOC selection. Original Note: Social Work SW phoned dtr to follow up on SNF choices. Dtr provided the following with the preference to remain in [facility]: [facility], [facility], [facility], [facility], [facility]. [facility] Will continue to follow. MERARI Ashby
--- NOTE | 2022-12-10 12:05 | CASEMGMT ---
Social Work Staff assessment completed for IPA MDS Assessment. Tamela Tinsley, PIE TOP[employer]
[2022-12-10 14:38] VITALS: BP 137/51; PULSE 57; RESP 14; TEMP 36.2; O2SAT 94
--- NOTE | 2022-12-10 16:27 | CASEMGMT ---
Social Work Received several phone calls from dtr throughout the day. Dtr confused with the Medicaid process, which facilities can accept the patient, what the long-term goal is for pt, i.e. hospice vs returning home at [facility]. TOYA spoke with dtr providing ongoing emotional support, answering questions and explaining Medicaid assistance at the facility. Explained pt will most likely remain LTC as hospice is being pursued, per dtr's choice, and pt has not improved during stay to be able to return home alone safely. TOYA reinforced SNF for / care is a recommendation and dtr can choose to make the decision for DC. Dtr expressed understanding stating she cannot care for pt as [place]. Dtr did speak with [facility] to complete Medicaid application and spoke with [facility] to complete financial risk assessment. SW explained [facility] is unable to accept pt d/t to Medicaid not being in place. [facility] [place] and [facility] can accept. Dtr plans to tour both facilities. Dtr requesting this worker speak with her to explain information as well. TOYA phoned pt's ARTEM, to answer questions and assist in clarifying DC information for pt. ARTEM expressed understanding without any confusion on the Medicaid process, pt being LTC at a facility with hospice services. TOYA inquired to ARTEM if dtr is typically confused, as she has been repeating the same questions and having difficulty with comprehension, or if dtr is stressed causing the confusion. ARTEM states is stressed causing the confusion, but also she isn't always spot on. TOYA empathized this is complicated information and the difficulty with seeing a loved one in this condition deterioriate quickly. TOYA offered ongoing assistance with DC planning. TOYA continues to communicate with SNFs answering questions and keeping updates from the dtr and [facility]. Will continue to follow. Tamela Tinsley, MERARI SNOWW
--- NOTE | 2022-12-10 19:42 | DS.PCM_ITS ---
Providers Date of Admission: 11/27/22 Primary Care Physician: Dr. Brigido Santana MD Consultations 11/28/22 14:13 Consult: Hospice / Palliative Care Routine Consulting Provider: [facility] Reason for Consult: PALLIATIVE - brain bleed, s/p trauma, uncontrolled symptoms, decline in ADL EMERGENT Consult: No MD Notified: Yes Date Notified: 11/28/22 Time Notified: 14:13 Method of Notification: Text Reason For Visit: FALL/ICH Diagnosis Discharge Diagnosis (1) Debility: Status: Acute Code(s): R53.81 - Other malaise (2) Intracranial hemorrhage: Status: Acute Code(s): I62.9 - Nontraumatic intracranial hemorrhage, unspecified (3) Fall down stairs: Status: Acute Code(s): W10.8XXA - Fall (on) (from) other stairs and steps, initial encounter (4) Hypotension: Status: Acute Code(s): I95.9 - Hypotension, unspecified (5) Dehydration: Status: Acute Code(s): E86.0 - Dehydration (6) Inanition: Status: Acute Code(s): R64 - Cachexia (7) Depression: Status: Acute Code(s): F32.A - Depression, unspecified (8) Macrocytic anemia: Status: Acute Code(s): D53.9 - Nutritional anemia, unspecified (9) Acute on chronic renal failure: Status: Chronic Code(s): N17.9 - Acute kidney failure, unspecified; N18.9 - Chronic kidney disease, unspecified (10) Cognitive dysfunction: Status: Acute Code(s): F09 - Unspecified mental disorder due to known physiological condition (11) Dysphagia: Status: Acute Code(s): R13.10 - Dysphagia, unspecified Plan 87 year old female with below past medical history hospitalized for fall down stairs, intracranial hemorrhage, left 12 rib fracture, L3 transverse process fracture, complicated by delirium, acute kidney injury, hypoxia, admitted to TCU with debility, here for rehabilitation, strengthening, prior to discharge home with granddaughter. * Debility - PT/OT. * Dysphagia - ST. * Pain - Tylenol 1000mg q6h prn pain (1-10). * Bowel - senna/colace 1 tablet bid. * Adult immunization - Administer pneumonia vaccine, covid19 vaccine, flu vaccine as appropriate. * DVT prophylaxis - Hold, brain bleed. * COPD - Albuterol 2.5mg q4h prn. * Hypertension - Losartan 50mg bid, Amlodipine 10mg daily, Doxazosin 4mg qhs. * Hyperlipidemia - Atorvastatin 80mg qhs. * Chronic systolic congestive heart failure - Losartan 50mg bid, Imdur 60mg daily, Bumex 2mg daily. * Coronary artery disease - Losartan 50mg bid, Imdur 60mg daily, Ranexa 500mg bid. * GERD - Famotidine 20mg bid. * Hypokalemia - KCL 20meq daily. * Restless leg syndrome - Mirapex 0.5mg qhs. * Insomnia - Trazodone 25mg qhs. Medications at Discharge Home Medications ranolazine 500 mg tablet,extended release,12 hr (Ranexa) 500 mg PO BID heart 11/17/22 isosorbide mononitrate 60 mg tablet,extended release 24 hr 60 mg PO DAILY heart 11/27/22 trazodone 50 mg tablet 25 mg PO QHS sleep 11/27/22 acetaminophen 500 mg tablet 1,000 mg (2 x 500 mg) PO Q6H PRN PRN Pain Score 1-10 #0 tabs 12/10/22 atorvastatin 80 mg tablet 80 mg PO QHS #0 tabs 12/10/22 famotidine 20 mg tablet 20 mg PO DAILY #0 tabs 12/10/22 melatonin 3 mg tablet 1.5 mg (1/2 x 3 mg) PO QHS #0 tabs 12/10/22 menthol 0.44 %-zinc oxide 20.6 % topical ointment (Calmoseptine) 1 applic topical BID #0 grams 12/10/22 mirtazapine 15 mg tablet 15 mg PO QHS #0 tabs 12/10/22 potassium chloride 20 mEq/15 mL oral liquid 20 meq (15 mL) PO BIDCM #0 mL 12/10/22 pramipexole 0.5 mg tablet 0.5 mg PO QHS #0 tabs 12/10/22 sennosides 8.6 mg-docusate sodium 50 mg tablet (Stool Softener-Stimulant Laxative) 1 tab PO BID #0 tabs 12/10/22 Hospital Course Operations None Procedures None Summary of Care Provided Minutes Spent on Discharge: 35 Hospital Course: 87 year old female with below past medical history hospitalized for fall down stairs, intracranial hemorrhage, left 12 rib fracture, L3 transverse process fracture, complicated by delirium, acute kidney injury, hypoxia, admitted to TCU with debility, here for rehabilitation, strengthening, prior to discharge home with granddaughter. Discharge to [facility] vs [facility] 12/13/2022, intermediate care, part B therapies. Physical Exam Const alert General Appearance: cooperative HEENT normocephalic Eyes PERRL and EOMs intact bilaterally Neck supple, no JVD and no carotid bruits Resp normal respiratory effort, normal air movement and clear to auscultation bilaterally Cardio regular rate and regular rhythm GI normal to inspection, nondistended, normoactive bowel sounds, non-tender and non-distended Extremity normal capillary refill General Extremity: Negative for edema Skin no rashes or lesions noted General Skin Exam: no breakdown Psych affect normal Appearance: appropriate Weight / BMI Weight Weight: 85.757 kg Body Mass Index (BMI) 30.9 ABG / Lab / Microbiology Data 12/10/22 08:29 12/10/22 08:29 Laboratory: Laboratory Results - last 24 hr 12/10/22 08:29: WBC 4.4, RBC 2.69 L, Hgb 8.4 L, Hct 27.2 L, MCV 101.1 H, MCH 31.2, MCHC 30.9 L, RDW Std Deviation 45.1 H, RDW Coeff of Cha 12.3, Plt Count 192, MPV 9.8, Immature Gran % (Auto) 0.500, Neut % (Auto) 60.7, Lymph % (Auto) 26.5, [place] % (Auto) 8.6, Eos % (Auto) 3.2, Baso % (Auto) 0.5, Absolute Neuts (auto) 2.7, Absolute Lymphs (auto) 1.17, Nucleated RBC % 0, Sodium 140, Potassium 3.9, Chloride 112 H, Carbon Dioxide 24.0, Anion Gap 4 L, BUN 21 H, Creatinine 1.78 H, Estim Creat Clear Calc 16.49, Est GFR (MDRD) Af Amer 35 L, Est GFR (MDRD) Non-Af 29 L, BUN/Creatinine Ratio 11.8, Glucose 129 H, Calcium 8.6 D/C Instructions Discharge Diet: No restrictions Discharge Activity: Return to Normal Activity, May Shower and Use Walker Weight Bearing Status: Weight bearing as tolerated Call your doctor if you observe: Fever of 101 or Higher, Inability to urinate, Inability to have a bowel movement, Shortness of breath, Dizziness, Fainting spells, Swelling in the ankles, Chest pain and Uncontrolled pain Additional Instructions: Discharge to [facility], part B therapies. Meaningful Use Info Meaningful Use Diagnoses (Choose all that apply): Hemorrhagic CVA CVA Therapy Assessed for PT,OT and/or ST?: Yes Discharge Plan Admission Admit Date/Time: 11/27/22 15:03 Primary Reason for Your Visit: Debility. Attending Provider: Neptali Gordon Chi Primary Care Provider: Brigido Santana Consulting Providers: Norman Cuevas; Tavia Rosario; Clotilde Valente; Ritu Mercedes ENVIRONMENTAL SYSTEMS COORDINATOR Instructions Additional Instructions / Restrictions: Discharge to [facility] vs [facility] 12[facility]/20[facility], part B therapies. Discharge Orders/Prescriptions Prescriptions: New acetaminophen 500 mg Tablet 1,000 mg PO Q6H PRN PRN (Reason: Pain Score 1-10) Qty: 0 0RF atorvastatin 80 mg Tablet 80 mg PO QHS Qty: 0 0RF sennosides-docusate sodium [Stool Softener-Stimulant Laxat] 8.6-50 mg Tablet 1 tab PO BID Qty: 0 0RF pramipexole 0.5 mg Tablet 0.5 mg PO QHS Qty: 0 0RF famotidine 20 mg Tablet 20 mg PO DAILY Qty: 0 0RF melatonin 3 mg Tablet 1.5 mg PO QHS Qty: 0 0RF menthol-zinc oxide [Calmoseptine] 0.44-20.6 % Ointment 1 applic topical BID Qty: 0 0RF Protocol: *Topical Application Instructions APPLICATION INSTRUCTIONS: Apply to coccyx and bilateral buttocks potassium chloride 20 mEq/15 mL Liquid 20 meq PO BIDCM Qty: 0 0RF mirtazapine 15 mg Tablet 15 mg PO QHS Qty: 0 0RF Continued ranolazine [Ranexa] 500 mg Tablet Extended Release 12 Hr 500 mg PO BID trazodone 50 mg Tablet 25 mg PO QHS isosorbide mononitrate 60 mg Tablet Extended Release 24 Hr 60 mg PO DAILY Discontinued bumetanide 2 mg tablet 2 mg PO DAILY rosuvastatin 40 mg tablet 40 mg PO DAILY ropinirole 1 mg tablet 1 mg PO QHS potassium chloride 20 mEq tablet extended release 20 meq PO DAILY albuterol sulfate 2.5 mg /3 mL (0.083 %) solution for nebulization 2.5 mg inhalation Q4H PRN (Reason: Sob &/Or Wheezing) Qty: 180 3RF acetaminophen 500 MG tablet 500 mg PO Q6H PRN PRN (Reason: Pain) terazosin 5 MG capsule 5 mg PO QHS losartan [Cozaar] 50 mg tablet 50 mg PO BID sennosides-docusate sodium [Senna with Docusate Sodium] 8.6-50 mg Tablet 1 tab-cap PO BID PRN (Reason: Constipation) famotidine 20 mg Tablet 20 mg PO BID amlodipine 10 mg Tablet 10 mg PO DAILY Referrals / Follow Up: Brigido Santana MD [Primary Care Provider] - Disposition Disposition (needs filled in before D/C Order can be placed): NonSkilled NH /Intermed Care
--- NOTE | 2022-12-10 19:49 | TREXTCAR_ITS ---
Diet Diet Order/Speech Therapy: 12/04/22 07:54 Diet: Regular - General Food consistency:: Pureed Liquid Consistency:: Regular/Thin Type of Dietary Supplement:: 8 oz strawberry EPHP tid Is pt able to select menu?: Yes Diet Comments: LACTOSE FREE milk; 1:1 supervision, FEED ONLY WHEN ALERT. fort foods prn Routine Orders/Code Status Code Status: DNRCC Wound(s) R Ankle: Wound Type: Abrasion Left Eye: Wound Type: Laceration Therapies Weight Bearing: Weight bearing as tolerated Extremity Affected:: Bilateral Lower Physical Therapy: Eval and Treat Occupational Therapy: Eval and Treat Speech Therapy: Eval and Treat Problem/Diagnosis (1) Debility: Status: Acute Code(s): R53.81 - Other malaise (2) Intracranial hemorrhage: Status: Acute Code(s): I62.9 - Nontraumatic intracranial hemorrhage, unspecified (3) Fall down stairs: Status: Acute Code(s): W10.8XXA - Fall (on) (from) other stairs and steps, initial encounter (4) Hypotension: Status: Acute Code(s): I95.9 - Hypotension, unspecified (5) Dehydration: Status: Acute Code(s): E86.0 - Dehydration (6) Inanition: Status: Acute Code(s): R64 - Cachexia (7) Depression: Status: Acute Code(s): F32.A - Depression, unspecified (8) Macrocytic anemia: Status: Acute Code(s): D53.9 - Nutritional anemia, unspecified Comment: more likely than not due to acute blood loss anemia with increased MCV due to reticulocytosis (9) Acute on chronic renal failure: Status: Chronic Code(s): N17.9 - Acute kidney failure, unspecified; N18.9 - Chronic kidney disease, unspecified (10) Cognitive dysfunction: Status: Acute Code(s): F09 - Unspecified mental disorder due to known physiological condition (11) Dysphagia: Status: Acute Code(s): R13.10 - Dysphagia, unspecified Plan 87 year old female with below past medical history hospitalized for fall down stairs, intracranial hemorrhage, left 12 rib fracture, L3 transverse process fracture, complicated by delirium, acute kidney injury, hypoxia, admitted to TCU with debility, here for rehabilitation, strengthening, prior to discharge home with granddaughter. * Debility - PT/OT. * Dysphagia - ST. * Pain - Tylenol 1000mg q6h prn pain (1-10). * Bowel - senna/colace 1 tablet bid. * Adult immunization - Administer pneumonia vaccine, covid19 vaccine, flu vaccine as appropriate. * DVT prophylaxis - Hold, brain bleed. * COPD - Albuterol 2.5mg q4h prn. * Hypertension - Losartan 50mg bid, Amlodipine 10mg daily, Doxazosin 4mg qhs. * Hyperlipidemia - Atorvastatin 80mg qhs. * Chronic systolic congestive heart failure - Losartan 50mg bid, Imdur 60mg daily, Bumex 2mg daily. * Coronary artery disease - Losartan 50mg bid, Imdur 60mg daily, Ranexa 500mg bid. * GERD - Famotidine 20mg bid. * Hypokalemia - KCL 20meq daily. * Restless leg syndrome - Mirapex 0.5mg qhs. * Insomnia - Trazodone 25mg qhs. Allergies/Procedures Done in Hospital Allergies Penicillins Allergy (Severe, Verified 11/17/22 04:29) Unknown aspirin Allergy (Intermediate, Verified 11/17/22 04:29) Other nose bleeds clonidine Allergy (Verified 11/18/22 09:08) confusion grass pollen Allergy (Verified 11/17/22 04:29) sneezing, coughing, rash codeine Adverse Reaction (Severe, Verified 11/17/22 04:29) Unknown cannot sleep adhesive tape Adverse Reaction (Intermediate, Verified 11/17/22 04:29) Rash itching milk Adverse Reaction (Mild, Verified 11/17/22 04:29) Other phlegm house dust Adverse Reaction (Verified 11/17/22 04:29) sneezing, coughing tree and shrub pollen Adverse Reaction (Verified 11/17/22 04:29) sneezing, coughing Procedures: None Type of Care/Length of Stay Estimated LOS: More Than 30 Days Type of Care Needed: Intermediate Rehab Potential: Poor Prognosis: Fair Additional Orders/Day of Discharge Day of Discharge: 12/13/22 Dietary and Speech Recommendations Dietitian Recommendations/Changes: Provide lactose free milk when ordered Continue liberal regular diet - consistency per SENIOR DATASTAGE DEVELOPER Continue to provide 8 oz ensure plus high protein tid w/ meals Provide fortified foods w/ meals as able Continue appetite stimulant Consider supplemental nutrition support to help prevent further decline in res nutritional status if in accordance w/ res and family Speech Linguistic Eval Summary: Oriented to self (name, , age, address and phone number), current month and year. Disoriented to city and situation. Patient refusing additional cognitive-linguistic assessment. Very lethargic. Follow Up Care When: 2-4 weeks Please Follow Up With: Keagan Taylor NP When: As scheduled. Discharge Plan Admission Admit Date/Time: 11/27/22 15:03 Primary Reason for Your Visit: Debility. Attending Provider: Neptali Gordon Chi Primary Care Provider: Brigido Santana Consulting Providers: Norman Cuevas; Tavia Rosario; Clotilde Valente; Ritu Mercedes LABORATORY SECRETARY Instructions Additional Instructions / Restrictions: Discharge to [facility] vs [facility] 12/13/2022, intermediate care, part B therapies. Discharge Orders/Prescriptions Prescriptions: New acetaminophen 500 mg Tablet 1,000 mg PO Q6H PRN PRN (Reason: Pain Score 1-10) Qty: 0 0RF atorvastatin 80 mg Tablet 80 mg PO QHS Qty: 0 0RF sennosides-docusate sodium [Stool Softener-Stimulant Laxat] 8.6-50 mg Tablet 1 tab PO BID Qty: 0 0RF pramipexole 0.5 mg Tablet 0.5 mg PO QHS Qty: 0 0RF famotidine 20 mg Tablet 20 mg PO DAILY Qty: 0 0RF melatonin 3 mg Tablet 1.5 mg PO QHS Qty: 0 0RF menthol-zinc oxide [Calmoseptine] 0.44-20.6 % Ointment 1 applic topical BID Qty: 0 0RF Protocol: *Topical Application Instructions APPLICATION INSTRUCTIONS: Apply to coccyx and bilateral buttocks potassium chloride 20 mEq/15 mL Liquid 20 meq PO BIDCM Qty: 0 0RF mirtazapine 15 mg Tablet 15 mg PO QHS Qty: 0 0RF Continued ranolazine [Ranexa] 500 mg Tablet Extended Release 12 Hr 500 mg PO BID trazodone 50 mg Tablet 25 mg PO QHS isosorbide mononitrate 60 mg Tablet Extended Release 24 Hr 60 mg PO DAILY Discontinued bumetanide 2 mg tablet 2 mg PO DAILY rosuvastatin 40 mg tablet 40 mg PO DAILY ropinirole 1 mg tablet 1 mg PO QHS potassium chloride 20 mEq tablet extended release 20 meq PO DAILY albuterol sulfate 2.5 mg /3 mL (0.083 %) solution for nebulization 2.5 mg inhalation Q4H PRN (Reason: Sob &/Or Wheezing) Qty: 180 3RF acetaminophen 500 MG tablet 500 mg PO Q6H PRN PRN (Reason: Pain) terazosin 5 MG capsule 5 mg PO QHS losartan [Cozaar] 50 mg tablet 50 mg PO BID sennosides-docusate sodium [Senna with Docusate Sodium] 8.6-50 mg Tablet 1 tab-cap PO BID PRN (Reason: Constipation) famotidine 20 mg Tablet 20 mg PO BID amlodipine 10 mg Tablet 10 mg PO DAILY Referrals / Follow Up: Brigido Santana MD [Primary Care Provider] - Disposition Disposition (needs filled in before D/C Order can be placed): NonSkilled NH/Intermed Care
--- NOTE | 2022-12-10 21:25 | NURSING ---
Addendum entered by Alycia Carpio 12/10/22 21:45: IV started in right hand. Continues LR @ 75mL/hr. Original Note: Upon entering room, IV site noted to be pink and edematous, with catheter fpc out of site. IV discontinued at this time. This CHEMIST INORGANIC attempted to start a new site 2 times, as well as CARI Jewell. Online Content Coordinator Jacqueline was called to ask for help starting IV.
[2022-12-10] MEDS: MELATONIN 3 MG TABLET 1.5 MG PO (21:34)
[2022-12-10] MEDS: Atorvastatin Calcium 80 MG Tablet PO (21:35)
[2022-12-10] MEDS: traZODone 50 MG Tablet 25 MG PO (21:35)
[2022-12-10] MEDS: Mirtazapine 15 MG Tablet PO (21:36)
[2022-12-10] MEDS: Pramipexole Di-HCl 0.5 MG Tablet PO (21:36)
--- NOTE | 2022-12-10 23:36 | NURSING ---
Patient removed IV from right hand, which was the 2nd one placed. She stated she did not want another one. Dr. Gordon notified. New order to d/c fluids and heplock. Will continue to monitor.
[2022-12-11] MEDS: Senna/Docusate Sodium 1 Tablet PO (05:38)
[2022-12-11] MEDS: Famotidine 20 MG Tablet PO (05:38)
[2022-12-11] MEDS: Ranolazine 500 MG Tablet PO (05:38)
[2022-12-11 05:42] VITALS: BMI 30.5
[2022-12-11] MEDS: Menthol/Lanolin/Calamine/Znox 113 GM Tube 1 APPLIC TOPICAL (05:42)
[2022-12-11] MEDS: Potassium Chloride Oral Soln 20 MEQ/15 ML UDC PO (08:37)
[2022-12-11] MEDS: Isosorbide Mononitrate 60 MG Tablet PO (08:37)
[2022-12-11 16:00] VITALS: BP 149/64; PULSE 61; RESP 12; TEMP 36.7; O2SAT 97
--- NOTE | 2022-12-11 16:45 | CASEMGMT ---
Social Work SW received call from dtr stating after touring the SNFs, [facility] is the [facility] d/t location. SW updated [facility] and [facility]. TOYA confirmed with [facility] that the [facility] application was submitted by [facility]. [facility] can accept. TOYA emailed Altagracia at [facility] with DC plans. Scheduled cot transport through [facility] for 1100 on 12/13. [facility] completed. DC paperwork sent to [facility]. Plan: DC 12/13 to [facility], intermediate, with [facility] MERARI AshbyW
--- NOTE | 2022-12-11 18:14 | NURSING ---
12/11/22 at 1740 patient had emesis x1. Patient noted to have headache at this time. was on floor- had him check patient. Advised to send patient to ER to obtain CT. Patient transported to ER Via W/C.
== END 2022-12-11 21:34 | disposition hospice, inpatient (51) | DRG 65 ==
PROVIDERS: Internal Medicine; Admitting Provider Family Medicine Geriatric Medicine; PCP Internal Medicine; Visit Provider Family Medicine Geriatric Medicine
DX: I62.9 Nontraumatic intracranial hemorrhage, unspecified (principal); I13.0 Hypertensive heart and chronic kidney disease with heart failure and stage 1 through stage 4 chronic kidney disease, or unspecified chronic kidney disease; N17.9 Acute kidney failure, unspecified; I50.22 Chronic systolic (congestive) heart failure; I95.9 Hypotension, unspecified; J44.9 Chronic obstructive pulmonary disease, unspecified; E78.5 Hyperlipidemia, unspecified; N18.9 Chronic kidney disease, unspecified; G25.81 Restless legs syndrome; I25.10 Atherosclerotic heart disease of native coronary artery without angina pectoris; W10.9XXD Fall (on) (from) unspecified stairs and steps, subsequent encounter; K21.9 Gastro-esophageal reflux disease without esophagitis; E87.6 Hypokalemia; F32.A Depression, unspecified; D53.9 Nutritional anemia, unspecified; Z95.5 Presence of coronary angioplasty implant and graft; Z87.891 Personal history of nicotine dependence; Z79.899 Other long term (current) drug therapy; S22.32XD Fracture of one rib, left side, subsequent encounter for fracture with routine healing; S32.039D Unspecified fracture of third lumbar vertebra, subsequent encounter for fracture with routine healing; R13.10 Dysphagia, unspecified
CPT/HCPCS: 36415; 80048; 83735; 84100; 85025; 85027; 92526; 92610; 97110; 97116; 97162; 97166; 97530; 97535; 97802; J7030; J7120; A4216

== ENCOUNTER → 2022-11-28 | Outpatient (CLI) | payer MEDICARE, SELFPAY ==
--- NOTE | 2022-11-28 14:45 | CT_ITS ---
ACR Level 3 findings have been noted. An addendum which confirms receipt of the report will follow. EXAM: CT HEAD WITHOUT INTRAVENOUS CONTRAST CLINICAL INDICATION: Altered mental status, unspecified TECHNIQUE: Multiple axial images were obtained of the head without intravenous contrast. This CT exam was performed using one or more of the following dose reduction techniques: automated exposure control, adjustment of the mA and/or kV according to patient size, and/or use of iterative reconstruction technique. COMPARISON: 11/17/2022 FINDINGS: BRAIN AND EXTRA-AXIAL SPACES: Resolution of the previous acute intraparenchymal, subarachnoid and subdural hemorrhages. Increasing low density subdural fluid collections over the cerebral hemispheres bilaterally, measuring up to 1.4 cm on the left and 1.1 cm on the right. Diffuse cerebral volume loss. Periventricular small vessel ischemic changes. Posterior fossa structures are unremarkable. No hydrocephalus. Basal cisterns are patent. BONES/JOINTS: Unremarkable. No discrete lytic or blastic abnormalities. VASCULATURE: Vascular calcifications. SINUSES: Unremarkable as visualized. Clear. MASTOID AIR CELLS: Unremarkable. Clear. ORBITS: Visualized globes, extraocular muscles, optic nerves and retrobulbar fat appear unremarkable. CT/Brain/Head without Contrast IMPRESSION: 1. Increasing low density subdural fluid collections over the cerebral hemispheres bilaterally, measuring up to 1.4 cm on the left and 1.1 cm on the right. These may represent slowly accumulating subdural hygromas or chronic subdural hematomas. These can be a cause of neurologic symptoms. Follow-up is recommended. 2. Resolution of the previous acute intraparenchymal, subarachnoid and subdural hemorrhages. 3. Age-related changes. Electronically Signed: Nelson Herrera MD at 2:44 EDT ,
== END | disposition home or self-care (01) ==
PROVIDERS: PCP Internal Medicine; Referring Provider Family Medicine Geriatric Medicine; Visit Provider Family Medicine Geriatric Medicine
DX: R41.82 Altered mental status, unspecified (principal)
CPT/HCPCS: 70450

== ENCOUNTER → 2022-12-01 | Outpatient (CLI) | payer MEDICARE, SELFPAY ==
--- NOTE | 2022-12-01 07:35 | CT_ITS ---
INDICATION: ABNORMAL CT EXAMINATION: CT BRAIN - CT Head or Brain W/O Contrast Injection TECHNIQUE: Multiple axial images were obtained of the head without intravenous contrast. A radiation dose optimization technique was used for this scan. IV Contrast dosage and agent: None. RADIATION DOSAGE (If Supplied By Facility): CTDIvol = ( 44.99 ) mGy, DLP = ( 762.36 ) mGycm COMPARISON: FINDINGS: BRAIN PARENCHYMA: There are stable extra-axial low-attenuation subdural fluid collections measuring up to 1.3 cm on the left and 1.0 cm on the right. There are patchy areas of low attenuation within the white matter of the cerebral hemispheres, a nonspecific finding most commonly reflecting small vessel ischemia. No evidence of acute infarct. No intracranial mass or mass effect. There is preservation of the dent/white matter interface. Posterior fossa structures are unremarkable. CSF SPACES: Appropriate for age. No hydrocephalus. Basal cisterns are patent. CALVARIUM, SKULL BASE, PARANASAL SINUSES AND MASTOID AIR CELLS: Clear. No discrete lytic or blastic abnormalities. ORBITS: Both globes, extraocular muscles, optic nerves and retrobulbar fat appear unremarkable. ASPECTS Score for Acute Strokes: 10 CT/Brain/Head without Contrast IMPRESSION: Stable bilateral hygromas. Small vessel ischemia. Electronically Signed: Kalra Mcfarlane MD at 8:18 EDT ,
== END | disposition home or self-care (01) ==
PROVIDERS: PCP Internal Medicine; Referring Provider Family Medicine Geriatric Medicine; Visit Provider Family Medicine Geriatric Medicine
DX: R93.0 Abnormal findings on diagnostic imaging of skull and head, not elsewhere classified (principal)
CPT/HCPCS: 70450

== ENCOUNTER 2022-12-11 17:54 | Observation (INO) | payer MEDICARE, MEDICAID, SELFPAY ==
[2022-12-11] VITALS (11 sets, daily range): BP systolic 139–168; BP diastolic 62–83; PULSE 81–91; RESP 16–22; TEMP 36.6–36.7; O2SAT 94–99; BMI 29.4; BMI 30.4
--- NOTE | 2022-12-11 17:59 | EKG12_ITS ---
Test Reason : STROKE Blood Pressure : / mmHG Vent. Rate : 084 BPM Atrial Rate : 084 BPM P-R Int : 186 ms QRS Dur : 148 ms QT Int : 406 ms P-R-T Axes : 034 -70 036 degrees QTc Int : 479 ms Sinus rhythm with occasional Premature ventricular complexes Right bundle branch block Left anterior fascicular block Bifascicular block Abnormal ECG Confirmed by LISA ALLEN, VIPIN ([id number]), book editor RAIZA ANNE ([id number]) on 12/15/2022 1:05:23 PM Referred By: DULCE/LLOYD/COLLEEN Confirmed By:ODALIS GONZALEZ MD
--- NOTE | 2022-12-11 17:59 | CT_ITS ---
We are attempting to reach an attending provider to discuss findings. An addendum with communication details will be sent when the communication is complete. INDICATION: Neuro deficit, acute, stroke suspected EXAMINATION: CT BRAIN - CT Head Stroke Protocol W/O Contrast Injection TECHNIQUE: Multiple axial images were obtained of the head without intravenous contrast. A radiation dose optimization technique was used for this scan. IV Contrast dosage and agent: None. RADIATION DOSAGE (If Supplied By Facility): CTDIvol = ( 44.99 ) mGy, DLP = ( 812.98 ) mGycm COMPARISON: 11/17/2022, 12/01/2022 FINDINGS: BRAIN PARENCHYMA: Similar bilateral subdural hygromas, now with 2.4 mm left right midline shift measured at the anterior septum is present 3.4 mm on 12/01/2022 when measured in a similar fashion. No intra- or extra-axial hemorrhage. No evidence of acute infarct. No intracranial mass or mass effect. There is preservation of the dent/white matter interface. Posterior fossa structures are unremarkable. CSF SPACES: Appropriate for age. No hydrocephalus. Basal cisterns are patent. CALVARIUM, SKULL BASE, PARANASAL SINUSES AND MASTOID AIR CELLS: Clear. No discrete lytic or blastic abnormalities. ORBITS: Bilateral ocular lens replacements. ASPECTS Score for Acute Strokes: 10 CT/STROKE Brain/Head without Cont IMPRESSION: Similar bilateral subdural hygromas with slightly decreased left to right midline shift compared to 12/01/2022. No intracranial hemorrhage or new abnormal intracranial finding. Electronically Signed: Masoud Bullard MD at 18:18 EDT ,
--- NOTE | 2022-12-11 18:00 | CT_ITS ---
INDICATION: Neuro deficit, acute, stroke suspected EXAMINATION: CT BRAIN WITH CONTRAST TECHNIQUE: Routine carotid CT angiogram protocol was performed without and with IV contrast. In addition, images were obtained of the [place]. NASCET criteria using the distal ICAs for comparison were used for evaluation of stenoses. 3D reconstructions were reviewed. A radiation dose optimization technique was used for this scan. IV Contrast dosage and agent: 100 mL [id number] COMPARISON: Concurrent noncontrast head CT FINDINGS: --CTA NECK: AORTIC ARCH AND BRANCHES: Normal anatomy, patent. RIGHT CCA: No occlusion, significant stenosis or dissection. RIGHT ICA: No occlusion, significant stenosis or dissection. LEFT CCA: No occlusion, significant stenosis or dissection. LEFT ICA: No occlusion, significant stenosis or dissection. RIGHT VERTEBRAL ARTERY: No occlusion, significant stenosis or dissection. LEFT VERTEBRAL ARTERY: No occlusion, significant stenosis or dissection. NECK SOFT TISSUES: Unremarkable. --CTA HEAD: --Anterior circulation: ICAs: No significant stenosis at the intracranial/visualized segments. ACAs: No significant stenosis at the visualized segments. ACOM: Present. MCAs: No significant stenosis at the visualized segments. --Posterior circulation: PCOMs: Not visualized. oil painter: No significant stenosis at the visualized segments. BASILAR ARTERY: No significant stenosis. VERTEBRAL ARTERIES: No significant stenosis at the intradural/visualized segments. No evidence of intracranial aneurysm or vascular malformation. Bilateral lung infiltrates. Rightward mediastinal shift. CT/STROKE CTA Head AND Neck W/Con IMPRESSION: Negative CTA Carotid and CTA Brain. Bilateral lung infiltrates and redemonstrated rightward mediastinal shift. N.B. : The above Results were Read Back by Masoud Bullard MD to Dennis Duong MD, and understanding confirmed on 12/11/2022 18:42:24 (ET). Electronically Signed: Masoud Bullard MD at 18:44 EDT ,
--- NOTE | 2022-12-11 18:09 | NURSING ---
[id number] STROKE ALERT CALLED
[2022-12-11 18:13] LABS: Absolute Neutrophil Count 3.3 X10^3/uL (2.0-7.7); Basophil# 0.01 X10^3/uL; Basophil% 0.2 % (0-1); Eosinophil# 0.09 X10^3/uL; Eosinophils% 1.8 % (0-5); Hematocrit 31.7 % (37-47); Lymphocyte % 23.7 % (19-41); Mean Corp Hgb Conc 31.5 g/dL (32-36); Mean Corpuscular Hgb 31.3 pg (27.0-32.0); Mean Corpuscular Volume 99.4 fL (81-99); Mean Platelet Vol. 9.5 fl (6.2-12.0); Monocyte# 0.46 X10^3/uL; Monocyte% 9.1 % (0-10); NRBC Flagged by Analyzer 0 % (0-5); Neutrophil # 3.28 X10^3/uL (2.7-7.7); Neutrophil % 64.6 % (47-70); Platelet Count 213 K/mm3 (150-450); RBC Distribution Width CV 12.3 % (11.6-14.6); RBC Distribution Width SD 43.8 fl (35.1-43.9); Red Blood Count 3.19 M/mm3 (4.2-5.4); White Blood Count 5.1 K/mm3 (4.4-11.0)
--- NOTE | 2022-12-11 18:13 | ED.VIS.STROK ---
HPI History of Present Illness Chief Complaint: Neuro S/Sx Informant: patient and other (floor RN) Narrative Narrative: Patient is on TCU here, according to nursing staff who brings her down here, she was last known well about 1740, and shortly thereafter she had a sudden onset headache along with lethargy, and on the way down here to the ED, she developed significant slurred speech. Initially seen in triage, stroke team called there, I responded to this and saw the patient in triage, with significant slurred speech. No recent fall or injury. She denies any chest pain. [facility] Medical History Asthma Atherosclerotic heart disease of [place] coronary artery without angina pectoris Bradycardia Chronic systolic (congestive) heart failure CKD (chronic kidney disease) COPD (chronic obstructive pulmonary disease) Essential hypertension Hiatal hernia History of left heart catheterization (LHC) (~02/22/19) Hyperlipidemia Lung cancer Nonrheumatic aortic (valve) stenosis with insufficiency Osteoarthritis Osteoarthritis Presence of coronary angioplasty implant and graft (~07/23/20) Primary cancer of right lower lobe of lung Right renal mass Spinal stenosis Home Medications ranolazine 500 mg tablet,extended release,12 hr (Ranexa) 500 mg PO BID heart 11/17/22 [History Last Taken Unknown] isosorbide mononitrate 60 mg tablet,extended release 24 hr 60 mg PO DAILY heart 11/27/22 [History Last Taken Unknown] trazodone 50 mg tablet 25 mg PO QHS sleep 11/27/22 [History Last Taken Unknown] acetaminophen 500 mg tablet 1,000 mg (2 x 500 mg) PO Q6H PRN PRN Pain Score 1-10 #0 tabs 12/10/22 [Rx Last Taken Unknown] atorvastatin 80 mg tablet 80 mg PO QHS #0 tabs 12/10/22 [Rx Last Taken Unknown] famotidine 20 mg tablet 20 mg PO DAILY #0 tabs 12/10/22 [Rx Last Taken Unknown] melatonin 3 mg tablet 1.5 mg (1/2 x 3 mg) PO QHS #0 tabs 12/10/22 [Rx Last Taken Unknown] menthol 0.44 %-zinc oxide 20.6 % topical ointment (Calmoseptine) 1 applic topical BID #0 grams 12/10/22 [Rx Last Taken Unknown] mirtazapine 15 mg tablet 15 mg PO QHS #0 tabs 12/10/22 [Rx Last Taken Unknown] potassium chloride 20 mEq/15 mL oral liquid 20 meq (15 mL) PO BIDCM #0 mL 12/10/22 [Rx Last Taken Unknown] pramipexole 0.5 mg tablet 0.5 mg PO QHS #0 tabs 12/10/22 [Rx Last Taken Unknown] sennosides 8.6 mg-docusate sodium 50 mg tablet (Stool Softener-Stimulant Laxative) 1 tab PO BID #0 tabs 12/10/22 [Rx Last Taken Unknown] amlodipine 10 mg tablet 10 mg PO DAILY 12/11/22 [History Last Taken Unknown] losartan 50 mg tablet 50 mg PO BID 12/11/22 [History Last Taken Unknown] Allergy/AdvReac Type Severity Reaction Status Date / Time Penicillins Allergy Severe Unknown Verified 11/17/22 04:29 aspirin Allergy Intermediate Other Verified 11/17/22 04:29 clonidine Allergy confusion Verified 11/18/22 09:08 grass pollen Allergy sneezing, Verified 11/17/22 04:29 coughing, rash codeine AdvReac Severe Unknown Verified 11/17/22 04:29 adhesive tape AdvReac Intermediate Rash Verified 11/17/22 04:29 milk AdvReac Mild Other Verified 11/17/22 04:29 house dust AdvReac sneezing, Verified 11/17/22 04:29 coughing tree and shrub pollen AdvReac sneezing, Verified 11/17/22 04:29 coughing Family History Mother Tuberculosis Father Prostate cancer Hypertension Surgical History Basal cell carcinoma History of back surgery History of bilateral cataract extraction History of bunionectomy History of section History of cholecystectomy History of hernia repair History of hysterectomy History of lobectomy of lung (~2012) History of lumbar laminectomy for spinal cord decompression History of tonsillectomy Presence of stent in coronary artery (~07/23/20) Social History household members: other details: Granddaughter lives with her. Smoking Status: Former smoker alcohol intake: current details: occasional substance use type: does not use caffeine: Yes Type: coffee Number of servings: 1 ROS ROS ED Constitutional Constitutional ED: Denies chills or fever(s) Eyes Eyes: Denies change in vision or diplopia ENT ENT ED: Denies rhinorrhea or sore throat Cardiovascular Cardiovascular: Denies chest pain or palpitations Respiratory/Chest Respiratory/Chest: Denies cough or dyspnea Gastrointestinal Gastrointestinal: Reports nausea and vomiting; Denies abdominal pain or diarrhea Genitourinary Genitourinary ED: Denies dysuria or hematuria Musculoskeletal Musculoskeletal: Denies back pain or neck pain Integumentary Denies abscess or rash Neurologic Neurologic: Reports as per HPI, abnormal speech and headache(s) EXAM Physical Exam Const Vital Signs: 12/11/22 18:11 12/11/22 18:16 12/11/22 18:34 Temperature 97.8 F Temperature Source Temporal Pulse Rate 86 81 83 Respiratory Rate 20 H 22 H 20 H Blood Pressure 139/74 H 152/83 H 149/73 H Blood Pressure Mean 95 106 98 Pulse Ox 94 96 97 Oxygen Delivery Method Room Air Room Air Room Air 12/11/22 18:41 12/11/22 18:30 12/11/22 19:00 Temperature Temperature Source Pulse Rate 83 87 Respiratory Rate 16 18 Blood Pressure 149/73 H 168/74 H Blood Pressure Mean 98 105 Pulse Ox 97 98 95 Oxygen Delivery Method Room Air Room Air Room Air 12/11/22 19:16 12/11/22 20:00 Temperature Temperature Source Pulse Rate 88 86 Respiratory Rate 19 H 17 Blood Pressure 160/72 H 165/62 H Blood Pressure Mean 101 96 Pulse Ox 99 95 Oxygen Delivery Method Room Air Room Air Positive well nourished and well developed General Appearance ED: well developed and NAD HEENT Reports moist mucous membranes normocephalic and atraumatic Eyes PERRL and EOMs intact bilaterally Neck full ROM and supple Resp normal respiratory effort and clear to auscultation bilaterally Cardio regular rate and regular rhythm GI non-tender and non-distended Auscultation: normoactive bowel sounds Palpation: soft Back/Spine no CVA tenderness General Back: other FROM Extremity normal to inspection General Extremety ED: Negative for edema, pulses abnormal or tenderness General Extremity: Negative for edema or pulses abnormal Neuro CN's II-XII intact bilaterally and no sensory deficits noted Neuro Narrative: Disoriented to the month, but oriented to her age and the place. See NIHSS, very slight drift right upper extremity but normal speech when evaluated after CT in the ED room. Sensorium / Orientation: awake and alert Skin no rashes or lesions noted and no wounds NIHSS NIHSS Initial: 1a Level of Consciousness: 0 1b LOC Questions (Score 2 if aphasic/stupor): 1 1c LOC Commands (Only score 1st attempt): 0 2 Best Gaze (If aphasic, use reflexive mvmts.): 0 3 Visual: 0 4 Facial Palsy: 0 5 Motor Arm Right (UN = amputation/fusion): 0 5 Motor Arm Left: 0 6 Motor Leg Right: 0 6 Motor Leg Left: 0 7 Limb ataxia (Only + if out of proportion): 0 8 Sensory (Aphasia/stupor=0 or 1, coma=2): 0 9 Best Language: 0 10 Dysarthria (mute, coma=2, intubated=UN): 0 11 Extinction and Inattention (only scored if +): 0 Total Score: 1 MDM MDM MDM Narrative Medical decision making narrative: I saw the patient in triage after they called the stroke team, she had significant dysarthria and she looked mildly lethargic, I did not do a full NIH, she went to CT and I evaluated her in the room directly afterwards, at which point I did the NIHSS that is documented on this document. She is significantly improved. The plain CT was done immediately, it shows no hemorrhage I reviewed the images and the report and spoke with the radiologist who agrees. She has bilateral subdural hygromas that are similar to prior, she has a midline shift in the past and that appears to be better or resolved now. Spoke with the stroke neurologist, who agrees no indication for thrombolytics at this time especially since seems the patient has no lateralizing deficits. Headache, seizure, TIA all in the differential diagnosis. Apparently she had an intracranial hemorrhage recently that she was transferred to [facility]. No sign of that at this time. Plan is to admit for further monitoring and evaluation. Patient's headache is completely resolved at this time. Chest x-ray 1 view shows right mediastinal shadowing, possibly due to scoliosis and rotation, but it is similar appearing to her prior chest x-ray on my interpretation and shows nothing else acute. However, on the CTA neck, apical infiltrates are noted, which may be contributing to this. Labs are noted, no leukocytosis or leftward shift; unclear if this represents pneumonia or something chronic. Clinically and hemodynamically stable, plan is for admission. Discussed with stroke neurology who agrees, differential includes atypical migraine, atypical/subclinical seizure, TIA. History & Record Review Additional record(s) reviewed:: Prior inpatient record and Prior labs Lab Data Attestation: I reviewed the patient's lab results. Labs: Laboratory Results - last 24 hr 12/11/22 12/11/22 18:03 18:15 WBC 5.1 RBC 3.19 L Hgb 10.0 L Hct 31.7 L MCV 99.4 H MCH 31.3 MCHC 31.5 L RDW Std Deviation 43.8 RDW Coeff of Cha 12.3 Plt Count 213 MPV 9.5 Immature Gran % (Auto) 0.600 Neut % (Auto) 64.6 Lymph % (Auto) 23.7 [place] % (Auto) 9.1 Eos % (Auto) 1.8 Baso % (Auto) 0.2 Absolute Neuts (auto) 3.3 Absolute Lymphs (auto) 1.20 Nucleated RBC % 0 PT 13.6 INR 1.0 APTT 28.1 Sodium 142 Potassium 3.9 Chloride 110 H Carbon Dioxide 27.0 Anion Gap 5 BUN 15 Creatinine 1.54 H Estim Creat Clear Calc 19.97 Est GFR (MDRD) Af Amer 41 L Est GFR (MDRD) Non-Af 34 L BUN/Creatinine Ratio 9.7 L Glucose 135 H Calcium 9.2 Troponin I High Sens 54 POC Glucose 138 H Radiography Diagnostic Testing: Clinical Impression(s) from Imaging Studies Brain CT 12/11/22 17:59 IMPRESSION: Similar bilateral subdural hygromas with slightly decreased left to right midline shift compared to 12/01/2022. No intracranial hemorrhage or new abnormal intracranial finding. Electronically Signed: Masoud Bullard MD at 18:18 EDT , ADDENDUM: 12/11/22 1826 IMPRESSION: Similar bilateral subdural hygromas with slightly decreased left to right midline shift compared to 12/01/2022. No intracranial hemorrhage or new abnormal intracranial finding. N.B. : The above Results were Read Back by Masoud Bullard MD to Dennis Duong MD, and understanding confirmed on 12/11/2022 18:19:42 (ET). Electronically Signed: Masoud Bullard MD at 18:18 EDT Reading Location ID and State: [address] [place] [address] Tel , Service support , Head/Neck CTA 12/11/22 18:00 IMPRESSION: Negative CTA Carotid and CTA Brain. Bilateral lung infiltrates and redemonstrated rightward mediastinal shift. N.B. : The above Results were Read Back by Masoud Bullard MD to Dennis Duong MD, and understanding confirmed on 12/11/2022 18:42:24 (ET). Electronically Signed: Masoud Bullard MD at 18:44 EDT Reading Location ID and State: [address] [place] [address] Tel , Service support , ADDENDUM: 12/11/22 1851 IMPRESSION: Negative CTA Carotid and CTA Brain. Bilateral lung infiltrates and redemonstrated rightward mediastinal shift. N.B. : The above Results were Read Back by Masoud Bullard MD to Dennis Duong MD, and understanding confirmed on 12/11/2022 18:42:24 (ET). Electronically Signed: Masoud Bullard MD at 18:44 EDT Reading Location ID and State: [facility] / [place] Tel , Service support , Chest X-Ray 12/11/22 18:55 IMPRESSION: Right lung base atelectasis. Small left pleural effusion. Bilateral lung apex infiltrates are better demonstrated on concurrent CTA head and neck. Electronically Signed: Masoud Bullard MD at 19:24 EDT Reading Location ID and State: [facility] / [place] Tel , Service support , Rhythm Strip Rhythm Strip: Sinus Rhythm Rate: 85 Ectopy: PVC(s) EKG Initial EKG: Attestation: I personally reviewed and interpreted this EKG as follows: Interpretation: Sinus Rhythm, No Acute Injury Pattern, RBBB and LAFB Prior EKG tracings: available for review Prior: Unchanged Management Discussion w/another healthcare provider: Hospitalist, Mysql Database Developer (Stroke neurology Dr. Dooley) and Radiologist Stroke Documentation Questions Stroke Team Activated: Yes Was Patient considered for Endovascular Intervention?: No-CTA negative, determined not to be an endovascular candidate IV Thrombolytic Administered: No (sx resolved) Critical Care Time Critical Care Time: Yes Critical care time (excluding procedures): 30-74 minutes (32 min), Including time spent:, Discussing w/Patient &/or Family/Manager Commission, Discussing w/Consultants, Arranging Admission or Transfer and Performing Direct Patient Care at Bedside Discharge Plan Dx/Rx/DC Orders Clinical Impression: Brain TIA Disposition Disposition: Acute Care Hospital [facility]
[2022-12-11 18:23] LABS: Prothrombin Time (Protime)PT. 13.6 SECONDS (11.7-14.9)
[2022-12-11 18:24] LABS: Partial Thromboplast Time 28.1 Seconds (24.1-36.2)
[2022-12-11 18:33] LABS: Bedside Glucose 138 mg/dL (74-106)
[2022-12-11 18:37] LABS: Anion Gap 5 (5-15); BUN 15 mg/dL (7-18); BUN/Creat Ratio 9.7 RATIO (10-20); Calcium,Total 9.2 mg/dL (8.5-10.1); Chloride 110 mmol/L (98-107); Creatinine, Serum 1.54 mg/dL (0.55-1.02); EST Glomerular Filtration Rate 34 mL/min (>60); Est Glom Filt Rate - Afr Amer 41 mL/min (>60); Estimated Creatinine Clearance 19.97 ml/min; Glucose 135 mg/dL (74-106); Potassium 3.9 mmol/L (3.5-5.1); Sodium Level 142 mmol/L (136-145); Troponin-I HS 54 pg/mL (3.0-54.0)
--- NOTE | 2022-12-11 18:55 | RAD_ITS ---
INDICATION: Neuro deficit, acute, stroke suspected EXAMINATION/TECHNIQUE: X-RAY - XR Chest 1 View COMPARISON: 11/17/2022 FINDINGS: LUNGS: Right lung base atelectasis. Small left pleural effusion. MEDIASTINUM AND CARDIOVASCULAR STRUCTURES: Mild cardiomegaly and rightward mediastinal shift. Central airways and mediastinal contour are unremarkable. RAD/Chest 1 View IMPRESSION: Right lung base atelectasis. Small left pleural effusion. Bilateral lung apex infiltrates are better demonstrated on concurrent CTA head and neck. Electronically Signed: Masoud Bullard MD at 19:24 EDT ,
--- NOTE | 2022-12-11 20:48 | ED.RN ---
ATTEMPTED TO CALL PTS DAUGHTER ABOUT ADMISSION, CALL WENT STRAIGHT TO VOICEMAIL AND UNABLE TO LEAVE MESSAGE.
--- NOTE | 2022-12-11 21:18 | PCM.HP.STD ---
HPI - General General Date of Admission: 12/11/22 Date of Service: 12/11/22 Chief Complaint: confusion HPI Narrative DARIUS GUERRERO, is a 87 F with a significant history of lung cancer and asthma who was currently having rehabilitation at transitional care unit presenting today emergency department with confusion. Reportedly suddenly patient became confused. Also she was having slurry speech. Patient had headaches. Patient does not remember exactly what happened. In regard to her headache she complain that she fell and hit the left side of her frontal scalp about a week ago. While at the transitional care unit stroke alert was called for patient and patient came to emergency department about 20 minutes time. After patient returned from scan at the emergency department back to her room patient's symptoms reportedly her left. Emergency Department doctor reported that patient vomited. [facility] Medical History Asthma Atherosclerotic heart disease of [place] coronary artery without angina pectoris Bradycardia Chronic systolic (congestive) heart failure CKD (chronic kidney disease) COPD (chronic obstructive pulmonary disease) Essential hypertension Hiatal hernia History of left heart catheterization (LHC) (~02/22/19) Hyperlipidemia Lung cancer Nonrheumatic aortic (valve) stenosis with insufficiency Osteoarthritis Osteoarthritis Presence of coronary angioplasty implant and graft (~07/23/20) Primary cancer of right lower lobe of lung Right renal mass Spinal stenosis Home Medications ranolazine 500 mg tablet,extended release,12 hr (Ranexa) 500 mg PO BID heart 11/17/22 [History Last Taken Unknown] isosorbide mononitrate 60 mg tablet,extended release 24 hr 60 mg PO DAILY heart 11/27/22 [History Last Taken Unknown] trazodone 50 mg tablet 25 mg PO QHS sleep 11/27/22 [History Last Taken Unknown] acetaminophen 500 mg tablet 1,000 mg (2 x 500 mg) PO Q6H PRN PRN Pain Score 1-10 #0 tabs 12/10/22 [Rx Last Taken Unknown] atorvastatin 80 mg tablet 80 mg PO QHS #0 tabs 12/10/22 [Rx Last Taken Unknown] famotidine 20 mg tablet 20 mg PO DAILY #0 tabs 12/10/22 [Rx Last Taken Unknown] melatonin 3 mg tablet 1.5 mg (1/2 x 3 mg) PO QHS #0 tabs 12/10/22 [Rx Last Taken Unknown] menthol 0.44 %-zinc oxide 20.6 % topical ointment (Calmoseptine) 1 applic topical BID #0 grams 12/10/22 [Rx Last Taken Unknown] mirtazapine 15 mg tablet 15 mg PO QHS #0 tabs 12/10/22 [Rx Last Taken Unknown] potassium chloride 20 mEq/15 mL oral liquid 20 meq (15 mL) PO BIDCM #0 mL 12/10/22 [Rx Last Taken Unknown] pramipexole 0.5 mg tablet 0.5 mg PO QHS #0 tabs 12/10/22 [Rx Last Taken Unknown] sennosides 8.6 mg-docusate sodium 50 mg tablet (Stool Softener-Stimulant Laxative) 1 tab PO BID #0 tabs 12/10/22 [Rx Last Taken Unknown] amlodipine 10 mg tablet 10 mg PO DAILY 12/11/22 [History Last Taken Unknown] losartan 50 mg tablet 50 mg PO BID 12/11/22 [History Last Taken Unknown] Allergy/AdvReac Type Severity Reaction Status Date / Time Penicillins Allergy Severe Unknown Verified 11/17/22 04:29 aspirin Allergy Intermediate Other Verified 11/17/22 04:29 clonidine Allergy confusion Verified 11/18/22 09:08 grass pollen Allergy sneezing, Verified 11/17/22 04:29 coughing, rash codeine AdvReac Severe Unknown Verified 11/17/22 04:29 adhesive tape AdvReac Intermediate Rash Verified 11/17/22 04:29 milk AdvReac Mild Other Verified 11/17/22 04:29 house dust AdvReac sneezing, Verified 11/17/22 04:29 coughing tree and shrub pollen AdvReac sneezing, Verified 11/17/22 04:29 coughing Family History Mother Tuberculosis Father Prostate cancer Hypertension Surgical History Basal cell carcinoma History of back surgery History of bilateral cataract extraction History of bunionectomy History of section History of cholecystectomy History of hernia repair History of hysterectomy History of lobectomy of lung (~2012) History of lumbar laminectomy for spinal cord decompression History of tonsillectomy Presence of stent in coronary artery (~07/23/20) Social History household members: other details: Granddaughter lives with her. Smoking Status: Former smoker alcohol intake: current details: occasional substance use type: does not use caffeine: Yes Type: coffee Number of servings: 1 ROS ROS Narrative Pertinent positives and pertinent negatives as noted in HPI. All other systems were reviewed and are negative Vital Signs Vital Signs Vital Signs: 12/11/22 18:11 12/11/22 18:16 12/11/22 18:34 Temperature 97.8 F Temperature Source Temporal Pulse Rate 86 81 83 Respiratory Rate 20 H 22 H 20 H Blood Pressure 139/74 H 152/83 H 149/73 H Blood Pressure Mean 95 106 98 Pulse Ox 94 96 97 Oxygen Delivery Method Room Air Room Air Room Air 12/11/22 18:41 12/11/22 18:30 12/11/22 19:00 Temperature Temperature Source Pulse Rate 83 87 Respiratory Rate 16 18 Blood Pressure 149/73 H 168/74 H Blood Pressure Mean 98 105 Pulse Ox 97 98 95 Oxygen Delivery Method Room Air Room Air Room Air 12/11/22 19:16 12/11/22 20:00 12/11/22 21:14 Temperature 98.0 F Temperature Source Temporal Pulse Rate 88 86 91 Respiratory Rate 19 H 17 18 Blood Pressure 160/72 H 165/62 H 149/65 H Blood Pressure Mean 101 96 93 Pulse Ox 99 95 96 Oxygen Delivery Method Room Air Room Air Room Air Weight Weight: 73 kg Body Mass Index (BMI) 29.4 Physical Exam Narrative Physical exam: General: Well-nourished, well-developed. Head: Normocephalic, atraumatic, no tenderness Eyes: Vision is grossly intact. EOMI ENT, no trauma, moist mucous membranes, no rhinorrhea Neck: Nontender, No thyromegaly. CVS: Regular rate and rhythm. S1-S2 present. No murmur, gallop or rub. Respiratory : clear to auscultation bilaterally, chest wall nontender Abdomen: Soft, nontender, nondistended, normal bowel sounds, no masses : Deferred Back: Nontender, no CVA tenderness Extremities: Nontender full range of motion, no trauma Skin: Normal color, no trauma, abrasions Neuro: Alert, oriented, cranial nerves II through XII grossly intact. No dysmetria with [id number] test. Psychiatry: Normal mood. Normal affect. Not depressed. Not anxious. Results Lab / Micro Data 12/11/22 18:03 12/11/22 18:03 Labs: Laboratory Results - last 24 hr 12/11/22 18:03: WBC 5.1, RBC 3.19 L, Hgb 10.0 L, Hct 31.7 L, MCV 99.4 H, MCH 31.3, MCHC 31.5 L, RDW Std Deviation 43.8, RDW Coeff of Cha 12.3, Plt Count 213, MPV 9.5, Immature Gran % (Auto) 0.600, Neut % (Auto) 64.6, Lymph % (Auto) 23.7, [place] % (Auto) 9.1, Eos % (Auto) 1.8, Baso % (Auto) 0.2, Absolute Neuts (auto) 3.3, Absolute Lymphs (auto) 1.20, Nucleated RBC % 0, PT 13.6, INR 1.0, APTT 28.1, Sodium 142, Potassium 3.9, Chloride 110 H, Carbon Dioxide 27.0, Anion Gap 5, BUN 15, Creatinine 1.54 H, Estim Creat Clear Calc 19.97, Est GFR (MDRD) Af Amer 41 L, Est GFR (MDRD) Non-Af 34 L, BUN/Creatinine Ratio 9.7 L, Glucose 135 H, Calcium 9.2, Troponin I High Sens 54 12/11/22 18:15: POC Glucose 138 H Rhythm Strip Rhythm Strip: Sinus Rhythm Rate: 85 Ectopy: PVC(s) Radiology Impression Brain CT 12/11/22 17:59 IMPRESSION: Similar bilateral subdural hygromas with slightly decreased left to right midline shift compared to 12/01/2022. No intracranial hemorrhage or new abnormal intracranial finding. Electronically Signed: Masoud Bullard MD at 18:18 EDT , ADDENDUM: 12/11/22 7506 IMPRESSION: Similar bilateral subdural hygromas with slightly decreased left to right midline shift compared to 12/01/2022. No intracranial hemorrhage or new abnormal intracranial finding. N.B. : The above Results were Read Back by Masoud Bullard MD to Dennis Duong MD, and understanding confirmed on 12/11/2022 18:19:42 (ET). Electronically Signed: Masoud Bullard MD at 18:18 EDT Reading Location ID and State: [address] [place] [address] Tel , Service support , Head/Neck CTA 12/11/22 18:00 IMPRESSION: Negative CTA Carotid and CTA Brain. Bilateral lung infiltrates and redemonstrated rightward mediastinal shift. N.B. : The above Results were Read Back by Masoud Bullard MD to Dennis Duong MD, and understanding confirmed on 12/11/2022 18:42:24 (ET). Electronically Signed: Masoud Bullard MD at 18:44 EDT Reading Location ID and State: [address] [place] [address] Tel , Service support , ADDENDUM: 12/11/22 1851 IMPRESSION: Negative CTA Carotid and CTA Brain. Bilateral lung infiltrates and redemonstrated rightward mediastinal shift. N.B. : The above Results were Read Back by Masoud Bullard MD to Dennis Duong MD, and understanding confirmed on 12/11/2022 18:42:24 (ET). Electronically Signed: Masoud Bullard MD at 18:44 EDT Reading Location ID and State: [facility] / [place] Tel , Service support , Chest X-Ray 12/11/22 18:55 IMPRESSION: Right lung base atelectasis. Small left pleural effusion. Bilateral lung apex infiltrates are better demonstrated on concurrent CTA head and neck. Electronically Signed: Masoud Bullard MD at 19:24 EDT Reading Location ID and State: [address] [place] [address] Tel , Service support , Assessment & Plan Assessment/Plan (1) Brain TIA: (2) Stroke-like symptoms: PLAN: Plan Strokelike symptoms Emergency department doctor Reported discussing the case with teleneurologist who gave differential diagnosis as stroke; seizure or migraine. Serial NINDS NIH Scale ordered Impression of head CT by radiology:Similar bilateral subdural hygromas with slightly decreased left to right midline shift compared to 12/01/2022. Impression of head and neck CTA by radiologist:Negative CTA Carotid and CTA Brain. Bilateral lung infiltrates and redemonstrated rightward mediastinal shift. Patient denies shortness of breath. Will not pursue pneumonia treatment at this time. Upon my personal head CT image review: I agree with radiologist interpretation Lipid profile and A1c ordered. Physical therapy, occupational therapy and speech therapy to work with patient. N.p.o. until bedside swallow eval. As allergy of nosebleed to aspirin aspirin ordered. High intensity statin ordered Permissive hypertension. Control blood pressure with labetalol for systolic blood pressure of more than 220 or diastolic blood pressure of more than 120. MRI of brain ordered Echocardiogram ordered. EEG ordered DVT prophylaxis SCDs ordered Charges/Coding Visit Charges Inpatient E&M: 27682 Init Hosp L2
--- NOTE | 2022-12-11 22:27 | ECHOCS_ITS ---
Reason For Study: TIA/CVA Procedure This was a 2D Doppler, Color Flow transthoracic echocardiogram. The study was technically difficult. Exam performed portable in patient room. Left Ventricle Normal LV size. Mild concentric left ventricular hypertrophy. Left ventricular systolic function is normal. The estimated ejection fraction is 55 %. Stage 1 diastolic dysfunction. No regional wall motion abnormalities noted. Right Ventricle Normal RV size. Normal systolic function. Atria Normal left atrium. Normal right atrium. Mitral Valve Normal mitral valve. Tricuspid Valve Normal tricuspid valve. Mild (1+) tricuspid valve insufficiency. Pulmonary artery systolic pressure is 30 mmHg. Aortic Valve Trisinus/trileaflet aortic valve. Pulmonic Valve The pulmonic valve is not well visualized. Great Vessels Normal aortic root. The pulmonary artery is normal size. Normal inferior vena cava. Pericardium/Pleural No pericardial effusion. Medication Diluted definity 2ml given slow IV push to enhance endocardial definition. Performed a rapid injection of agitated mix of 9 cc saline and 1cc air to assess for atrial septal defect. MMode/2D Measurements & Calculations LVIDd: 3.6 cm IVSd: 1.2 cm LVOT diam: 2.0 cm LVIDs: 2.9 cm LVPWd: 1.3 cm RVDd: 3.3 cm FS: 19.9 % LVOT area: 3.3 cm2 Ao root diam: 3.2 cm LAV(MOD-bp): 45.5 ml LA A4 area: 16.6 cm2 LAV(MOD-bp) Indexed: 26.1 ml/m2 LAV(MOD-sp2): 47.4 ml LAV(MOD-sp4): 42.1 ml LA dimension(2D): 3.6 cm RA A4 area: 13.6 cm2 Time Measurements MV dec time: 0.21 sec Doppler Measurements & Calculations MV E max elmer: 54.2 cm/sec Lat Peak E' Elmer: 9.1 cm/sec Med Peak E' Elmer: 7.3 cm/sec MV A max elmer: 118.5 cm/sec E/E' lat: 6.0 E/E' med: 7.4 MV E/A: 0.46 Ao V2 max: 221.9 cm/sec LV V1 max: 101.8 cm/sec SV(LVOT): 59.8 ml Ao max P.7 mmHg LV V1 max P.2 mmHg Ao V2 mean: 159.6 cm/sec LV V1 mean P.8 mmHg Ao mean P.4 mmHg LV V1 mean: 61.3 cm/sec Ao V2 VTI: 44.7 cm LV V1 VTI: 18.3 cm AV (velocity ratio): 0.41 MAX(I,D): 1.3 cm2 MAX(V,D): 1.5 cm2 PA V2 max: 74.6 cm/sec PI dec slope: 127.3 cm/sec2 TR max elmer: 263.8 cm/sec TR max P.8 mmHg ECHO/Echo Complete W/ Contrast Interpretation Summary Normal LV size. Mild concentric left ventricular hypertrophy. Left ventricular systolic function is normal. The estimated ejection fraction is 55 %. Stage 1 diastolic dysfunction. Pulmonary artery systolic pressure is 30 mmHg. Contrast injection was performed. Ordering Physician: Kg Briceño Referring Physician: JAG RÍOS Performed By: Rachael Burroughs RDCS
[2022-12-11] MEDS: traZODone 50 MG Tablet 25 MG PO (23:03)
[2022-12-11] MEDS: Pramipexole Di-HCl 0.5 MG Tablet PO (23:04)
[2022-12-11] MEDS: Atorvastatin Calcium 80 MG Tablet PO (23:04)
[2022-12-11] MEDS: MELATONIN 3 MG TABLET 1.5 MG PO (23:04)
[2022-12-11] MEDS: Mirtazapine 15 MG Tablet PO (23:05)
[2022-12-11] MEDS: Ranolazine 500 MG Tablet PO (23:05)
[2022-12-11] MEDS: Senna/Docusate Sodium 1 Tablet PO (23:06)
[2022-12-11] MEDS: Menthol/Lanolin/Calamine/Znox 113 GM Tube 1 APPLIC TOPICAL (23:06)
[2022-12-11] MEDS: 0.9% Saline Lock 10 ML Syringe IV (23:25)
[2022-12-12] VITALS (9 sets, daily range): BP systolic 141–169; BP diastolic 50–92; PULSE 54–89; RESP 16–18; TEMP 36.4–37; O2SAT 95–100; BMI 30.4
[2022-12-12 07:05] LABS: Absolute Lymphocyte Count 1.15 X10^3/uL (0.83-4.51); Absolute Neutrophil Count 2.9 X10^3/uL (2.0-7.7); Basophil# 0.02 X10^3/uL; Basophil% 0.4 % (0-1); Eosinophil# 0.14 X10^3/uL; Hematocrit 30.9 % (37-47); Hemoglobin 9.2 g/dL (12.0-15.0); Lymphocyte # 1.15 X10^3/ul (0.83-4.51); Lymphocyte % 24.8 % (19-41); Mean Corp Hgb Conc 29.8 g/dL (32-36); Mean Corpuscular Hgb 31.4 pg (27.0-32.0); Mean Corpuscular Volume 105.5 fL (81-99); Mean Platelet Vol. 9.7 fl (6.2-12.0); Monocyte# 0.39 X10^3/uL; Monocyte% 8.4 % (0-10); NRBC Flagged by Analyzer 0 % (0-5); Neutrophil # 2.92 X10^3/uL (2.7-7.7); Platelet Count 177 K/mm3 (150-450); RBC Distribution Width CV 12.6 % (11.6-14.6); RBC Distribution Width SD 47.5 fl (35.1-43.9); Red Blood Count 2.93 M/mm3 (4.2-5.4); White Blood Count 4.6 K/mm3 (4.4-11.0)
[2022-12-12 07:47] LABS: Anion Gap 6 (5-15); BUN 11 mg/dL (7-18); BUN/Creat Ratio 8.1 RATIO (10-20); Calcium,Total 8.9 mg/dL (8.5-10.1); Chloride 111 mmol/L (98-107); Cholesterol 103 mg/dL (200); Creatinine, Serum 1.36 mg/dL (0.55-1.02); EST Glomerular Filtration Rate 39 mL/min (>60); Est Glom Filt Rate - Afr Amer 47 mL/min (>60); Estimated Creatinine Clearance 21.58 ml/min; Glucose 110 mg/dL (74-106); High Density Lipoprotein 43 mg/dL; Potassium 3.3 mmol/L (3.5-5.1); Sodium Level 141 mmol/L (136-145); Triglycerides 108 mg/dL; Very Low Density Lipoprotein 22 mg/dL (5-40)
[2022-12-12] MEDS: Potassium Chloride Oral Soln 20 MEQ/15 ML UDC PO ×2 (09:00→17:43)
[2022-12-12] MEDS: Famotidine 20 MG Tablet PO (09:00)
[2022-12-12] MEDS: Senna/Docusate Sodium 1 Tablet PO (09:01)
[2022-12-12] MEDS: Menthol/Lanolin/Calamine/Znox 113 GM Tube 1 APPLIC TOPICAL (09:03)
[2022-12-12] MEDS: Ranolazine 500 MG Tablet PO (09:08)
--- NOTE | 2022-12-12 11:29 | CASEMGMT ---
Patient is from TCU. Patient's plan was to go to [facility] Thursday- on pending Medicaid and [facility]. Physician would like to send patient today. called [facility] and spoke with La to see if this is possible. La said patient could come today, but she would need new orders and a level of care. Paula Hodges MSW LEAH
--- NOTE | 2022-12-12 12:04 | CASEMGMT ---
Discharge Planning Patient planned to admit to [facility] from TCU and wishes to still do so. Ref[facility] Evette Ricks, Discharge Planning Asst.
--- NOTE | 2022-12-12 12:40 | CASEMGMT ---
TOYA was able to clarify patient does not need a level of care to go to [facility]. SW notified physician that patient can go to [facility] today. SW will notify Hospice and patient's daughter. Paula Hodges SENIOR BOOKKEEPERAlisha LYNN
--- NOTE | 2022-12-12 14:19 | PCM.TXEXTCAR ---
Diet Diet Order/Speech Therapy: 12/11/22 22:27 Diet: Cardiac - Regular Food consistency:: Pureed Liquid Consistency:: Regular/Thin Routine Orders/Code Status Code Status: DNRCC Therapies Weight Bearing: Weight bearing as tolerated Problem/Diagnosis (1) Brain TIA: Status: Acute Code(s): G45.9 - Transient cerebral ischemic attack, unspecified (2) Stroke-like symptoms: Status: Acute Code(s): R29.90 - Unspecified symptoms and signs involving the nervous system Plan 1. Mental status change #2 dysarthria-etiology unclear #3 generalized debility #4 status post traumatic brain bleed-subarachnoid, parenchymal, and subdural #5 atherosclerotic heart disease #6 essential hypertension #7 chronic obstructive pulmonary disease #8 left and right subdural hygromas Allergies/Procedures Done in Hospital Allergies Penicillins Allergy (Severe, Verified 11/17/22 04:29) Unknown aspirin Allergy (Intermediate, Verified 11/17/22 04:29) Other nose bleeds clonidine Allergy (Verified 11/18/22 09:08) confusion grass pollen Allergy (Verified 11/17/22 04:29) sneezing, coughing, rash codeine Adverse Reaction (Severe, Verified 11/17/22 04:29) Unknown cannot sleep adhesive tape Adverse Reaction (Intermediate, Verified 11/17/22 04:29) Rash itching milk Adverse Reaction (Mild, Verified 11/17/22 04:29) Other phlegm house dust Adverse Reaction (Verified 11/17/22 04:29) sneezing, coughing tree and shrub pollen Adverse Reaction (Verified 11/17/22 04:29) sneezing, coughing Procedures: None Type of Care/Length of Stay Estimated LOS: More Than 30 Days Type of Care Needed: Intermediate Rehab Potential: Poor Prognosis: Poor Additional Orders/Day of Discharge H&P will serve as current which was dated: 12/11/22 Day of Discharge: 12/12/22 Discharge Plan Admission Admit Date/Time: 12/11/22 21:03 Primary Reason for Your Visit: Dysarthria, transient confusion Attending Provider: Miguel Oliva Primary Care Provider: Brigido Santana Consulting Providers: Kg Briceño Instructions Additional Instructions / Restrictions: Hospice consultation Discharge Orders/Prescriptions Prescriptions: Continued ranolazine [Ranexa] 500 mg Tablet Extended Release 12 Hr 500 mg PO BID trazodone 50 mg Tablet 25 mg PO QHS isosorbide mononitrate 60 mg Tablet Extended Release 24 Hr 60 mg PO DAILY acetaminophen 500 mg Tablet 1,000 mg PO Q6H PRN PRN (Reason: Pain Score 1-10) Qty: 0 0RF sennosides-docusate sodium [Stool Softener-Stimulant Laxat] 8.6-50 mg Tablet 1 tab PO BID Qty: 0 0RF pramipexole 0.5 mg Tablet 0.5 mg PO QHS Qty: 0 0RF famotidine 20 mg Tablet 20 mg PO DAILY Qty: 0 0RF melatonin 3 mg Tablet 1.5 mg PO QHS Qty: 0 0RF menthol-zinc oxide [Calmoseptine] 0.44-20.6 % Ointment 1 applic topical BID Qty: 0 0RF Protocol: *Topical Application Instructions APPLICATION INSTRUCTIONS: Apply to coccyx and bilateral buttocks potassium chloride 20 mEq/15 mL Liquid 20 meq PO BIDCM Qty: 0 0RF mirtazapine 15 mg Tablet 15 mg PO QHS Qty: 0 0RF losartan 50 mg tablet 50 mg PO BID amlodipine 10 mg tablet 10 mg PO DAILY Discontinued atorvastatin 80 mg Tablet 80 mg PO QHS Qty: 0 0RF Referrals / Follow Up: Brigido Santana MD [Primary Care Provider] - Disposition Disposition (needs filled in before D/C Order can be placed): NonSkilled NH/Intermed Care
--- NOTE | 2022-12-12 14:29 | CHAPLAIN ---
Type of Pastoral Visit _x__ Initial Visit ___ Follow-up Visit ___ On-call Visit ___ General Patient Visit ___ Spiritual Assessment ___ Family Conference ___ Bereavement ___ Rapid Response ___ Code Blue ___ Other (describe below) Pastoral Care Referral From _x__ Patient ___ Family ___ Nurse ___ Physician ___ Inventory Associate ___ Analyst Competitive Intelligence ___ Other (describe below) Sacrament/Intervention _x__ Active listening ___ Anointing ___ Holiness ___ Bereavement ___ Communion ___ Cecilia exploration ___ ___ Life review ___ Prayer ___ Reconciliation ___ Sacrament of Sick _x__ Supportive presence ___ Wedding ___ Other (describe below) Pastoral Comments patient describes a fall she took and that is why I was moved here/downstairs; pt says she is not sure what is happening next for her; pt is pleasant and denies any needs;
--- NOTE | 2022-12-12 14:34 | DS.PCM_ITS ---
Providers Date of Admission: 12/11/22 Date of Discharge: 12/12/22 Primary Care Physician: Dr. Brigido Ríos MD Reason For Visit: STROKE-LIKE SYMPTOMS Diagnosis Discharge Diagnosis (1) Brain TIA: Status: Acute Code(s): G45.9 - Transient cerebral ischemic attack, unspecified (2) Stroke-like symptoms: Status: Acute Code(s): R29.90 - Unspecified symptoms and signs involving the nervous system Plan 1. Mental status change #2 dysarthria-etiology unclear #3 generalized debility #4 status post traumatic brain bleed-subarachnoid, parenchymal, and subdural #5 atherosclerotic heart disease #6 essential hypertension #7 chronic obstructive pulmonary disease #8 left and right subdural hygromas Medications at Discharge Home Medications ranolazine 500 mg tablet,extended release,12 hr (Ranexa) 500 mg PO BID heart 11/17/22 isosorbide mononitrate 60 mg tablet,extended release 24 hr 60 mg PO DAILY heart 11/27/22 trazodone 50 mg tablet 25 mg PO QHS sleep 11/27/22 acetaminophen 500 mg tablet 1,000 mg (2 x 500 mg) PO Q6H PRN PRN Pain Score 1-10 #0 tabs 12/10/22 famotidine 20 mg tablet 20 mg PO DAILY #0 tabs 12/10/22 melatonin 3 mg tablet 1.5 mg (1/2 x 3 mg) PO QHS #0 tabs 12/10/22 menthol 0.44 %-zinc oxide 20.6 % topical ointment (Calmoseptine) 1 applic topical BID #0 grams 12/10/22 mirtazapine 15 mg tablet 15 mg PO QHS #0 tabs 12/10/22 potassium chloride 20 mEq/15 mL oral liquid 20 meq (15 mL) PO BIDCM #0 mL 12/10/22 pramipexole 0.5 mg tablet 0.5 mg PO QHS #0 tabs 12/10/22 sennosides 8.6 mg-docusate sodium 50 mg tablet (Stool Softener-Stimulant Laxative) 1 tab PO BID #0 tabs 12/10/22 amlodipine 10 mg tablet 10 mg PO DAILY 12/11/22 losartan 50 mg tablet 50 mg PO BID 12/11/22 Hospital Course Operations None Procedures None Summary of Care Provided Minutes Spent on Discharge: 31 Hospital Course: 87 year-old white female was transferred from the TCU unit where she was undergoing rehab services following an intracranial bleed recently due to slurred speech, lethargy, and headache. Evaluation in the ER revealed the patient to have significant slurred speech, she was able to reply to simple questions, team was called. Patient went to CT and she was evaluated in her room directly afterwards, NIH score was at that time 1, plain CT showed no hemorrhage, she did have evidence of bilateral subdural hygromas which were similar to prior scans. Stroke neurologist was contacted and agreed there is no indication for thrombolytics. Patient actually was a DNR comfort care only and was due to go to hospice at a local rehab facility the following day. Patient was placed into observation status on PCU, neurochecks were monitored, when I learned that the patient was a comfort care only and that she was going into hospice at a local nursing facility, I canceled her MRI of the brain. I tried to get a hold of the patient's family member to discuss her care but was unable to contact them, according to long term care social worker however, they knew the patient was going to go to a local extended care facility under hospice. Patient did have an echocardiogram done which showed no evidence for right to left anterior atrial shunt. Patient's EF was normal On 12/12/2022, patient was seen and examined: On examination she appeared her stated age, she does not appear to be in any distress. Vital signs as documented. Skin warm and dry and without overt rashes. Neck without JVD, thyroid appears normal, trachea is midline, neck is supple. Lungs clear, normal air movement was noted. Heart exam notable for regular rhythm, normal sounds and absence of murmurs, rubs or gallops. Abdomen unremarkable and without evidence of organomegaly, masses, or abdominal aortic enlargement, bowel sounds are present in all 4 quadrants, no abdominal tenderness was noted. Extremities n onedematous, no cyanosis was noted, no clubbing was noted. Neuro: Cranial nerves II through XII are grossly intact, no focal motor deficits were noted, sensation to light touch and pinprick is intact, motor exam 5/5 throughout. Psych: Patient is alert and oriented as to person and place, she does not appear anxious or depressed, she does not appear agitated. On 12/12/2022, patient was transferred to [facility] under hospice care as a comfort care. Weight / BMI Weight Weight: 73.2 kg Body Mass Index (BMI) 30.4 ABG / Lab / Microbiology Data 12/12/22 06:55 12/12/22 06:55 Laboratory: Laboratory Results - last 24 hr 12/11/22 18:03: WBC 5.1, RBC 3.19 L, Hgb 10.0 L, Hct 31.7 L, MCV 99.4 H, MCH 31.3, MCHC 31.5 L, RDW Std Deviation 43.8, RDW Coeff of Cha 12.3, Plt Count 213, MPV 9.5, Immature Gran % (Auto) 0.600, Neut % (Auto) 64.6, Lymph % (Auto) 23.7, [place] % (Auto) 9.1, Eos % (Auto) 1.8, Baso % (Auto) 0.2, Absolute Neuts (auto) 3.3, Absolute Lymphs (auto) 1.20, Nucleated RBC % 0, PT 13.6, INR 1.0, APTT 28.1, Sodium 142, Potassium 3.9, Chloride 110 H, Carbon Dioxide 27.0, Anion Gap 5, BUN 15, Creatinine 1.54 H, Estim Creat Clear Calc 19.97, Est GFR (MDRD) Af Amer 41 L, Est GFR (MDRD) Non-Af 34 L, BUN/Creatinine Ratio 9.7 L, Glucose 135 H , Calcium 9.2, Troponin I High Sens 54 12/11/22 18:15: POC Glucose 138 H 12/12/22 06:55: WBC 4.6, RBC 2.93 L, Hgb 9.2 L, Hct 30.9 L, MCV 105.5 H D, MCH 31.4, MCHC 29.8 L D, RDW Std Deviation 47.5 H, RDW Coeff of Cha 12.6, Plt Count 177, MPV 9.7, Immature Gran % (Auto) 0.400, Neut % (Auto) 63.0, Lymph % (Auto) 24.8, [place] % (Auto) 8.4, Eos % (Auto) 3.0, Baso % (Auto) 0.4, Absolute Neuts (auto) 2.9, Absolute Lymphs (auto) 1.15, Nucleated RBC % 0, Sodium 141, Potassium 3.3 L, Chloride 111 H, Carbon Dioxide 24.0, Anion Gap 6, BUN 11, C reatinine 1.36 H, Estim Creat Clear Calc 21.58, Est GFR (MDRD) Af Amer 47 L, Est GFR (MDRD) Non-Af 39 L, BUN/Creatinine Ratio 8.1 L, Glucose 110 H, Calcium 8.9, Triglycerides 108, Cholesterol 103, LDL Cholesterol 38, VLDL Cholesterol 22, HDL Cholesterol 43 Radiography Diagnostic Testing: Radiology Impression Brain CT 12/11/22 17:59 IMPRESSION: Similar bilateral subdural hygromas with slightly decreased left to right midline shift compared to 12/01/2022. No intracranial hemorrhage or new abnormal intracranial finding. Electronically Signed: Masoud Bullard MD at 18:18 EDT Reading Location ID and State: [address] [place] [address] Tel , Service support , ADDENDUM: 12/11/22 1826 IMPRESSION: Similar bilateral subdural hygromas with slightly decreased left to right midline shift compared to 12/01/2022. No intracranial hemorrhage or new abnormal intracranial finding. N.B. : The above Results were Read Back by Masoud Bullard MD to Dennis Duong MD, and understanding confirmed on 12/11/2022 18:19:42 (ET). Electronically Signed: Masoud Bullard MD at 18:18 EDT Reading Location ID and State: [address] [place] [address] Tel , Service support , Head/Neck CTA 12/11/22 18:00 IMPRESSION: Negative CTA Carotid and CTA Brain. Bilateral lung infiltrates and redemonstrated rightward mediastinal shift. N.B. : The above Results were Read Back by Masoud Bullard MD to Dennis Duong MD, and understanding confirmed on 12/11/2022 18:42:24 (ET). Electronically Signed: Masoud Bullard MD at 18:44 EDT Reading Location ID and State: [address] [place] [address] Tel , Service support , ADDENDUM: 12/11/22 1851 IMPRESSION: Negative CTA Carotid and CTA Brain. Bilateral lung infiltrates and redemonstrated rightward mediastinal shift. N.B. : The above Results were Read Back by Masoud Bullard MD to Dennis Duong MD, and understanding confirmed on 12/11/2022 18:42:24 (ET). Electronically Signed: Masoud Bullard MD at 18:44 EDT , Chest X-Ray 12/11/22 18:55 IMPRESSION: Right lung base atelectasis. Small left pleural effusion. Bilateral lung apex infiltrates are better demonstrated on concurrent CTA head and neck. Electronically Signed: Masoud Bullard MD at 19:24 EDT , Echocardiogram 12/11/22 22:27 Interpretation Summary Normal LV size. Mild concentric left ventricular hypertrophy. Left ventricular systolic function is normal. The estimated ejection fraction is 55 %. Stage 1 diastolic dysfunction. Pulmonary artery systolic pressure is 30 mmHg. Contrast injection was performed. Ordering Physician: Kg Briceño Referring Physician: BRIGIDO RÍOS Performed By: Rachael Burroughs RDCS Meaningful Use Info Meaningful Use Diagnoses (Choose all that apply): None applicable Discharge Plan Admission Admit Date/Time: 12/11/22 21:03 Primary Reason for Your Visit: Dysarthria, transient confusion Attending Provider: Miguel Oliva Primary Care Provider: Brigido Ríos Consulting Providers: Kg Briceño Instructions Additional Instructions / Restrictions: Hospice consultation Discharge Orders/Prescriptions Prescriptions: Continued ranolazine [Ranexa] 500 mg Tablet Extended Release 12 Hr 500 mg PO BID trazodone 50 mg Tablet 25 mg PO QHS isosorbide mononitrate 60 mg Tablet Extended Release 24 Hr 60 mg PO DAILY acetaminophen 500 mg Tablet 1,000 mg PO Q6H PRN PRN (Reason: Pain Score 1-10) Qty: 0 0RF sennosides-docusate sodium [Stool Softener-Stimulant Laxat] 8.6-50 mg Tablet 1 tab PO BID Qty: 0 0RF pramipexole 0.5 mg Tablet 0.5 mg PO QHS Qty: 0 0RF famotidine 20 mg Tablet 20 mg PO DAILY Qty: 0 0RF melatonin 3 mg Tablet 1.5 mg PO QHS Qty: 0 0RF menthol-zinc oxide [Calmoseptine] 0.44-20.6 % Ointment 1 applic topical BID Qty: 0 0RF Protocol: *Topical Application Instructions APPLICATION INSTRUCTIONS: Apply to coccyx and bilateral buttocks potassium chloride 20 mEq/15 mL Liquid 20 meq PO BIDCM Qty: 0 0RF mirtazapine 15 mg Tablet 15 mg PO QHS Qty: 0 0RF losartan 50 mg tablet 50 mg PO BID amlodipine 10 mg tablet 10 mg PO DAILY Discontinued atorvastatin 80 mg Tablet 80 mg PO QHS Qty: 0 0RF Referrals / Follow Up: Brigido Ríos MD [Primary Care Provider] - Disposition Disposition (needs filled in before D/C Order can be placed): NonSkilled NH/Intermed Care Charges/Coding Visit Charges Inpatient E&M: 50948 Disch Hosp >30min
--- NOTE | 2022-12-12 14:54 | PHA.DC.MR.R ---
Pharmacy [place] Med Reconciliation Pharmacy Service has performed discharge medication reconciliation for this patient upon transfer to [facility]. The patient's discharge medication list was reviewed for discrepancies and discrepancies were resolved. Medications at Discharge Home Medications ranolazine 500 mg tablet,extended release,12 hr (Ranexa) 500 mg PO BID heart 11/17/22 isosorbide mononitrate 60 mg tablet,extended release 24 hr 60 mg PO DAILY heart 11/27/22 trazodone 50 mg tablet 25 mg PO QHS sleep 11/27/22 acetaminophen 500 mg tablet 1,000 mg (2 x 500 mg) PO Q6H PRN PRN Pain Score 1-10 #0 tabs 12/10/22 famotidine 20 mg tablet 20 mg PO DAILY #0 tabs 12/10/22 melatonin 3 mg tablet 1.5 mg (1/2 x 3 mg) PO QHS #0 tabs 12/10/22 menthol 0.44 %-zinc oxide 20.6 % topical ointment (Calmoseptine) 1 applic topical BID #0 grams 12/10/22 mirtazapine 15 mg tablet 15 mg PO QHS #0 tabs 12/10/22 potassium chloride 20 mEq/15 mL oral liquid 20 meq (15 mL) PO BIDCM #0 mL 12/10/22 pramipexole 0.5 mg tablet 0.5 mg PO QHS #0 tabs 12/10/22 sennosides 8.6 mg-docusate sodium 50 mg tablet (Stool Softener-Stimulant Laxative) 1 tab PO BID #0 tabs 12/10/22 amlodipine 10 mg tablet 10 mg PO DAILY 12/11/22 losartan 50 mg tablet 50 mg PO BID 12/11/22
--- NOTE | 2022-12-12 15:33 | CASEMGMT ---
SW attempted to call patient's daughter on both phones, however there was no answer and no identifying voice mails so no messages left. SW called patient's son in law and said they were aware patient is going to [facility] today. Patient's daughter Keagan is actually in [place] and is probably at the group home taking care of paperwork. Plan: d/c to [facility] under intermediate level of care on [facility]. Paula Hodges TIME STUDY ENGINEER LEAH
--- NOTE | 2022-12-12 16:50 | NURSING ---
Report called to [facility] to [facility].
--- NOTE | 2022-12-12 17:05 | CASEMGMT ---
Discharge Planning Discharge orders, med list, and pickup time sent to [facility] via [facility]. Patients [facility] notified of pickup time, as well as [facility]. Patient will be transported by [facility] via cot at 8:30p. Nursing notified and given phone number for report. Evette Ricks, Discharge Planning Asst.
--- NOTE | 2022-12-12 17:55 | CASEMGMT ---
RN CM: Call placed to [facility] and notified [address] of transportation issues and delay in discharge. Ilan Martinez RN CM
--- NOTE | 2022-12-12 20:58 | NURSING ---
Pt dc'd at this time to [facility]. IV and tele removed.
== END 2022-12-12 20:59 | disposition hospice, inpatient (51) ==
LOC: ED 20:59 → PCU 21:47
PROVIDERS: Admitting Provider Hospitalist; Emergency Provider Emergency Medicine; PCP Internal Medicine; Visit Provider Internal Medicine
DX: G45.9 Transient cerebral ischemic attack, unspecified (principal); J44.9 Chronic obstructive pulmonary disease, unspecified; I13.0 Hypertensive heart and chronic kidney disease with heart failure and stage 1 through stage 4 chronic kidney disease, or unspecified chronic kidney disease; I50.22 Chronic systolic (congestive) heart failure; R47.1 Dysarthria and anarthria; Z87.891 Personal history of nicotine dependence; R53.81 Other malaise; N18.9 Chronic kidney disease, unspecified; I25.10 Atherosclerotic heart disease of native coronary artery without angina pectoris; R47.81 Slurred speech; E78.5 Hyperlipidemia, unspecified; Z79.899 Other long term (current) drug therapy; R29.701 NIHSS score 1; I45.2 Bifascicular block; R94.31 Abnormal electrocardiogram [ECG] [EKG]; R41.82 Altered mental status, unspecified; D18.1 Lymphangioma, any site; Z66 Do not resuscitate
CPT/HCPCS: 36415; 70450; 70496; 70498; 71045; 80048; 80061; 82962; 84484; 85025; 85610; 85730; 93005; 93306; 94762; 95819; 99221; 99284; Q9957; Q9967; A4216; C8929; G0378

== ENCOUNTER → 2022-12-15 05:00 | Outpatient (REF) | payer MEDICARE, SELFPAY ==
[2022-12-15 08:21] LABS: Hematocrit 26.2 % (37-47); Hemoglobin 8.2 g/dL (12.0-15.0); Mean Corp Hgb Conc 31.3 g/dL (32-36); Mean Corpuscular Hgb 31.2 pg (27.0-32.0); Mean Corpuscular Volume 99.6 fL (81-99); Mean Platelet Vol. 10.7 fl (6.2-12.0); Platelet Count 182 K/mm3 (150-450); RBC Distribution Width CV 13.2 % (11.6-14.6); RBC Distribution Width SD 47.6 fl (35.1-43.9); Red Blood Count 2.63 M/mm3 (4.2-5.4); White Blood Count 4.2 K/mm3 (4.4-11.0)
[2022-12-15 08:27] LABS: Scan Indicated on CBC? Y/N NO
[2022-12-15 08:43] LABS: ALB/GLOB Ratio 0.7 RATIO (0.9-2.4); AST(SGOT) 20 U/L (15-37); Alanine Aminotransfer ALT/SGPT 20 U/L (13-56); Albumin, Serum 2.2 g/dL (3.2-5.0); Alkaline Phosphatase 55 U/L (45-117); Anion Gap 5 (5-15); BUN 10 mg/dL (7-18); BUN/Creat Ratio 6.2 RATIO (10-20); Calcium,Total 8.2 mg/dL (8.5-10.1); Chloride 111 mmol/L (98-107); EST Glomerular Filtration Rate 32 mL/min (>60); Est Glom Filt Rate - Afr Amer 39 mL/min (>60); Globulin 3.1 g/dL (2.2-4.2); Glucose 115 mg/dL (74-106); Potassium 3.2 mmol/L (3.5-5.1); Protein, Total 5.3 g/dL (6.4-8.2); Sodium Level 142 mmol/L (136-145)
== END ==
LOC: OLS.SW 05:00
PROVIDERS: PCP Internal Medicine; Visit Provider Family Medicine
DX: Z02.2 Encounter for examination for admission to residential institution (principal)
CPT/HCPCS: 36415; 80053; 85027